=== PATIENT | female | born 1950 | race Caucasian/White ===

== ENCOUNTER 2020-03-09 13:29 | Observation (INO) | payer OTHER ==
--- OUTSIDE RECORDS SUMMARY | 2020-03-09 13:31 | XMS REPORT | Clinical Summary ---
:1950 Author Organization [facility] Address [address] [place] [id number] Care Team Providers Name Role Phone Aníbal Skaggs MD Primary Care Provider Allergies Active Allergy Reactions Severity Noted Date Comments Adhesive Tape-Silicones 12/05/2015 unkn own Alcohol High 12/05/2015 unknown Codeine Rash, GI Intolerance Low 10/07/2010 Iodine And Iodide Containing 12/05/2015 pruritus Products Latex 01/26/2018 Povidone-Iodine Rash Low 10/07/2010 Sulfa (Sulfonamide Antibiotics) GI Intolerance 015 Medications Medication Sig Dispensed Refills Start Date End Date Status ascorbate calcium 814 Take 5,000 mg by 0 10/07/2010 Active mg/gram powder mouth. atorvastatin (LIPITOR) Take 10 mg by 0 01/24/2015 Active 10 MG tablet mouth. CHOLECALCIFEROL, VITAMIN Take by mouth. 0 10/07/2010 Active D3, ORAL LORAZepam (ATIVAN) 2 MG Take 2 mg by 0 08/02/2012 Active tablet mouth. metFORMIN XR Take 500 mg by 0 01/21/2015 A ctive (GLUCOPHAGE-XR) 500 mg mouth. 24 hr tablet thyroid, pork, (ARMOUR Take 60 mg by 0 01/24/2015 Active THYROID) 60 mg tablet mouth. VITAMIN B COMPLEX ORAL Take by mouth. 0 10/07/2010 Active Active Problems No known active problems Family History Medical History Relation Name Comments Cancer Father Cancer Mother breast Relation Name Status Comments Father Mother Social History Tobacco Use Types Packs/Day Years Used Date Never Smoker Smokeless Tobacco: Never Used Alcohol Use Drinks/Week oz/Week Comments Yes Sex Assigned at Date Recorded Not on file Job Start Date Occupation Industry Not on file Not on file Not on file Travel History Travel Start Travel End No recent travel history available. Last Filed Vital Signs Not on file Plan of Treatment Health Maintenance Due Date Last Done Comments DIABETIC RETINAL EYE EXAM 1950 DIABETIC FOOT EXAM 1960 BREAST CANCER SCREENING 2000 COLONOSCOPY SCREENING 2000 SHINGLES VACCINES (#1) 2000 65+ PNEUMOCOCCAL VACCINE (1 of 2 - PCV13) 2015 INFLUENZA VACCINE 02/20/2020 Results Not on fileafter 03/09/2019 Insurance Payer Benefit Plan / Subscriber ID Effective Dates Phone Addre ss Type Group MEDICARE MEDICARE PART A xxxxxxxxxx 2015-Present SERA RANGEL Medicare AND B (Home) [place] [address] Advance Directives For more information, please contact: [phone] Type Date 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
--- OUTSIDE RECORDS SUMMARY | 2020-03-09 13:32 | XMS REPORT | Continuity of Care Document ---
:1950 Author Organization [facility] t Address [address] [place] [address] [address] [place] [address] Care Team Providers Name Role Phone MELECIO CHU Primary Care Physician Unavailable SYSTEM, NOT IN Attending Clinician Unavailable Girish CHU Attending Clinician Unavailable Jessica JO Attending Clinician Unavailable Payers Payer Name Policy Type Policy Number Effective Date Expiration Date S marilyn MEDICARE PART A [id number] 2015 AND B 00:00:00 Problems This patient has no known problems. Allergies, Adverse Reactions, Alerts Allergy Allergy Status Severity Reaction(s) Onset Inactive Treating Comm ents Source Name Type Date Date Clinician DALBAVAN DRUG Active High Sob~Rash 2019-0 MD BOZENA INGREDI 1-25 Anderso 00:00: n 00 DALBAVAN DRUG Active High Sob~Rash 2019-0 MD BOZENA INGREDI 1-25 Anderso 00:00: n 00 Latex Propensi Active [place] ty to 808 Methodi adverse 00:00: st reaction 00 s to drug ADHESIVE DRUG Active Low Rash MD TAPE-BRENDAN 6-16 Anderso ICONES 00:00: n 00 ADHESIVE DRUG Active Low Rash MD TAPE-BRENDAN 6-16 Anderso ICONES 00:00: n 00 Adhesive Propensi Active unknown [place] Tape-Brendan ty to 616 Methodi icones adverse 00:00: st reaction 00 s to drug Alcohol Propensi Active Severe unknown [place] ty to 6-16 Methodi adverse 00:00: st reaction 00 s to drug Iodine Propensi Active pruritus [place] ty to 616 Methodi Iodide adverse 00:00: st Containi reaction 00 ng s to Products drug Sulfa Propensi Active GI [place] ([place]ulfona ty to Intolerance 8-03 Met hodi mide adverse 00:00: st Antibiot reaction 00 ics) s to drug Codeine Propensi Active Rash, GI [place] ty to Intolerance - Metho di adverse 00:00: st reaction 00 s to drug Povidone Propensi Active Rash [place] -Iodine ty to 10-07 Methodi adverse 00:00: st reaction 00 s to drug Family History Family Member Diagnosis Comments Start Date Stop Date Source Natural father Cancer [facility] thodist Natural mother Cancer [facility] thodist Social History Social Habit Start Date Stop Date Quantity Comments Source Sex Assigned At [place] M ethodist Alcohol intake 2018-01-26 2018-01-26 Current drinker [place] [facility] 00:00:00 00:00:00 of alcohol (finding) Smoking Status Start Date Stop Date Source Never smoker [place] Method[facility] t Medications Ordered Filled Start Stop Current Ordering Indication Dosage Frequency Signature Comments Components Source Medication Medication Date Date Medication? Clinician (SIG) Name Name atorvastati Yes 10mg Take 10 mg [place] n (LIPITOR) 806 by mouth. Met hodi 10 MG 00:00: st tablet 00 thyroid, Yes 60mg Take 60 mg Kelly ston pork, 806 by mouth. Methodi (ARMOUR 00:00: st THYROID) 60 00 mg tablet metFORMIN Yes 500mg Take 500 [address]on XR 8-03 mg by [facility] (GLUCOPHAGE 00:00: mouth. st -XR) 500 mg 00 24 hr tablet LORAZepam Yes 2mg Take 2 mg Kelly ston (ATIVAN) 2 2-12 by mouth. Meth viktor MG tablet 00:00: st 00 ascorbate Yes 5000mg Take 5,000 [place] calcium 814 4-19 mg by [facility]i mg/gram 00:00: mouth. st powder 00 CHOLECALCIF Yes Take by Kelly ston ANDRIA, 10-07 mouth. Methodi VITAMIN D3, 00:00: st ORAL 00 VITAMIN B Yes Take by [place] on COMPLEX 10-07 mouth. Methodi ORAL 00:00: st 00 Vital Signs Vital Name Observation Time Observation Value Comments Source WEIGHT 2019-12-27 00:00:00 90 kg Procedures This patient has no known procedures. Plan of Care Planned Activity Planned Date Details Comments Source Future Scheduled 2020-02-20 INFLUENZA VACCINE [place] [facility] Test 00:00:00 [code = INFLUENZA VACCINE] Future Scheduled 2015 65+ PNEUMOCOCCAL [facility] [facility] Test 00:00:00 VACCINE (1 of 2 - PCV13) [code = 65+ PNEUMOCOCCAL VACCINE (1 of 2 - PCV13)] Future Scheduled 2000 BREAST CANCER [place] [facility] Test 00:00:00 SCREENING [code = BREAST CANCER SCREENING] Future Scheduled 2000 COLONOSCOPY SCREENING [place] [facility] Test 00:00:00 [code = COLONOSCOPY SCREENING] Future Scheduled 2000 SHINGLES VACCINES (#1) [place] [facility] Test 00:00:00 [code = SHINGLES VACCINES (#1)] Future Scheduled 1960 DIABETIC FOOT EXAM [place] [facility] Test 00:00:00 [code = DIABETIC FOOT EXAM] Future Scheduled 1950 DIABETIC RETINAL EYE [facility] Test 00:00:00 EXAM [code = DIABETIC RETINAL EYE EXAM] Encounters Start End Encounter Admission Attending Care Care Encounter Source Date/Time Date/Time Type Type Clinicians Facility Department ID 2019-12-12 Outpatient SYSTEMDEN MDA [id number] 14:36:16 ZEN bangura 2020-02-21 2020-02-21 Outpatient SARANYA CHU MDA MDA [id number] 00:00:00 00:00:00 MELECIO bangura 2020-01-24 2020-01-24 Outpatient SARANYA JO MDA MDA [id number] 00:00:00 00:00:00 MAYUR bangura 2019-12-27 2019-12-27 Outpatient SARANYA CHU MDA MDA [id number] 06:51:15 09:50:57 MELECIO bangura 2019-12-27 2019-12-27 Outpatient SARANYA CHU MDA MDA [id number] 06:21:08 06:21:08 MELECIO bangura 2019-12-11 2019-12-11 Outpatient SARANYA CHU MDA MDA [id number] 09:32:44 11:03:05 MELECIO bangura Results This patient has no known results.
--- NOTE | 2020-03-09 14:38 | RAD REPORT ---
EXAM DESCRIPTION: Rosalinda Single View03/09/2020 2:19 pm CLINICAL HISTORY: Chest pain COMPARISON: 2016 FINDINGS: The lungs appear clear of acute infiltrate. The heart is normal size IMPRESSION: No acute abnormalities displayed
[2020-03-09] MEDS ORDERED: ASPIRIN 81 MG CHEWABLE TABLET ONE (14:45)
[2020-03-09 15:32] LABS: Absolute Lymphocytes (CBC) 3.1 K/uL (0.7-4.9); Basophils % 1.2 % (0-1.3); Hematocrit 30.8 % (36.0-45.0); Lymphocytes % 55.8 % (15.3-44.8); MPV 6.9 fL (7.6-11.3); RBC Red Blood Cell Count 2.84 M/uL (3.86-4.86)
[2020-03-09 15:50] LABS: ALT/SGPT 43 U/L (12-78); AST/SGOT 31 U/L (15-37); Albumin 3.6 g/dL (3.4-5.0); Alkaline Phosphatase 43 U/L (45-117); BUN Blood Urea Nitrogen 14 mg/dL (7-18); Bicarbonate 28 mmol/L (21-32); Bilirubin Direct 0.2 mg/dL (0-0.2); Bilirubin Total 0.7 mg/dL (0.2-1.0); Glucose Level 128 mg/dL (74-106); Lipase 104 U/L (73-393); Magnesium 1.9 mg/dL (1.8-2.4); NT PRO-BNP 54 pg/mL (<125); Potassium 3.9 mmol/L (3.5-5.1); Protein, Total 7.2 g/dL (6.4-8.2); Sodium Level 139 mmol/L (136-145); Troponin (Emerg Dept Use Only) < 0.02 ng/mL (0.0-0.045)
[2020-03-09 16:01] LABS: Urine Blood NEGATIVE (NEG); Urine Glucose NEGATIVE (NEG); Urine Protein NEGATIVE (NEG); Urine Specific Gravity 1.005 (1.005-1.030)
--- NOTE | 2020-03-09 16:02 | EDPHYS ---
Physician Documentation [facility] Name: Hortencia Martinez Age: 69 yrs Sex: Female : 1950 Arrival Date: 03/09/2020 Time: 13:30 Bed 13 Private MD: MALA Physician Bharat Mccartney HPI: 03/09 15:38 This 69 yrs old Female presents to ER via Ambulatory with complaints of Chest shannan Pain. 15:38 The patient or guardian reports chest pain that is located primarily in the anterior shannan chest wall, bilaterally. Onset: just prior to arrival. The pain does not radiate. Associated signs and symptoms: The patient has no apparent associated signs or symptoms. The chest pain is described as sharp. Modifying factors: The symptoms are alleviated by nothing. the symptoms are aggravated by nothing. Severity of pain: At its worst the pain was mild in the emergency department the pain is unchanged. The patient has not experienced similar symptoms in the past. Historical: - Allergies: 13:56 Codeine (Vomiting); iw - Home Meds: 13:56 anastrozole 1 mg oral tab 1 tab once daily [Active]; denosumab subcutaneous iw subcutaneous [Active]; Ibrance 125 mg oral cap 1 cap once daily [Active]; Eliquis 5 mg oral tab 1 tab 2 times per day [Active]; metformin 500 mg Oral Tb24 2 times per day [Active]; - PMHx: 13:56 BREAST CA; Diabetes - NIDDM; lymphedema; iw - PSHx: 13:56 Mastectomy - LEFT; Cholecystectomy; iw - Immunization history:: Adult Immunizations not up to date. - Social history:: Smoking status: Patient denies any tobacco usage or history of. - Family history:: not pertinent. ROS: 15:38 Constitutional: Negative for fever, chills, and weight loss, Eyes: Negative for injury, shannan pain, redness, and discharge, ENT: Negative for injury, pain, and discharge, Neck: Negative for injury, pain, and swelling, Respiratory: Negative for shortness of breath, cough, wheezing, and pleuritic chest pain, Abdomen/GI: Negative for abdominal pain, nausea, vomiting, diarrhea, and constipation, Back: Negative for injury and pain, : Negative for injury, bleeding, discharge, and swelling, MS/Extremity: Negative for injury and deformity, Skin: Negative for injury, rash, and discoloration, Neuro: Negative for headache, weakness, numbness, tingling, and seizure, Psych: Negative for depression, anxiety, suicide ideation, homicidal ideation, and hallucinations, Allergy/Immunology: Negative for hives, rash, and allergies, Endocrine: Negative for neck swelling, polydipsia, polyuria, polyphagia, and marked weight changes. 15:38 Cardiovascular: Positive for chest pain. Exam: 15:38 Constitutional: This is a well developed, well nourished patient who is awake, alert, shannan and in no acute distress. Head/Face: Normocephalic, atraumatic. Eyes: Pupils equal round and reactive to light, extra-ocular motions intact. Lids and lashes normal. Conjunctiva and sclera are non-icteric and not injected. Cornea within normal limits. Periorbital areas with no swelling, redness, or edema. ENT: Nares patent. No nasal discharge, no septal abnormalities noted. Tympanic membranes are normal and external auditory canals are clear. Oropharynx with no redness, swelling, or masses, exudates, or evidence of obstruction, uvula midline. Mucous membranes moist. Neck: Trachea midline, no thyromegaly or masses palpated, and no cervical lymphadenopathy. Supple, full range of motion without nuchal rigidity, or vertebral point tenderness. No Meningismus. Chest/axilla: Normal chest wall appearance and motion. Nontender with no deformity. No lesions are appreciated. Cardiovascular: Regular rate and rhythm with a normal S1 and S2. No gallops, murmurs, or rubs. Normal PMI, no JVD. No pulse deficits. Respiratory: Lungs have equal breath sounds bilaterally, clear to auscultation and percussion. No rales, rhonchi or wheezes noted. No increased work of breathing, no retractions or nasal flaring. Abdomen/GI: Soft, non-tender, with normal bowel sounds. No distension or tympany. No guarding or rebound. No evidence of tenderness throughout. Back: No spinal tenderness. No costovertebral tenderness. Full range of motion. Female : Normal external genitalia. Skin: Warm, dry with normal turgor. Normal color with no rashes, no lesions, and no evidence of cellulitis. MS/ Extremity: Pulses equal, no cyanosis. Neurovascular intact. Full, normal range of motion. Neuro: Awake and alert, GCS 15, oriented to person, place, time, and situation. Cranial nerves II-XII grossly intact. Motor strength 5/5 in all extremities. Sensory grossly intact. Cerebellar exam normal. Normal gait. Psych: Awake, alert, with orientation to person, place and time. Behavior, mood, and affect are within normal limits. 15:38 Musculoskeletal/extremity: Extremities: all appear grossly normal, with no appreciated pain with palpation, ROM: no acute changes, intact in all extremities, Circulation is intact in all extremities. DVT Exam: No signs of deep vein thrombosis. no pain, no swelling, no tenderness, negative Homans' sign noted on exam, no appreciated bluish discoloration, no erythema, no increased warmth, LEFT UPPER EXTREMITY,LYMPHEDEMA, NO CELLULITIS. Vital Signs: 13:52 BP 121 / 57; Pulse 69; Resp 16; Temp 98.0(TE); Pulse Ox 100% on R/A; Weight 81.65 kg; iw Pain 7/10; 15:35 Pulse 62; Resp 14 S; Pulse Ox 100% on R/A; jd3 16:49 BP 123 / 64; Pulse 63; Resp 17 S; Pulse Ox 99% on R/A; jd3 18:02 BP 134 / 65; Pulse 62; Resp 14 S; Pulse Ox 99% on R/A; jd3 MDM: 13:58 Patient medically screened. shannan 15:47 Differential diagnosis: abnormal EKG, acute pericarditis. Data reviewed: vital signs, shannan nurses notes, lab test result(s), EKG, radiologic studies, plain films. 15:49 HEART Score: History: Slightly Suspicious (0), ECG: Normal (0), Age: > or = 65 years shannan (2), Risk Factors: 1 or 2 risk factors (1), Troponin: < or = 1 x Normal Limit (0). The patient was given aspirin in the Emergency Department. The patient's deep vein thrombosis risk score was calculated as follows: Total Score: 0. This patient was found to be at low risk for a deep vein thrombosis by using the Well's assessment criteria. The patient's pulmonary embolism risk score was calculated as follows: Total Score: 0-2 points. This patient was found to be at low risk for a pulmonary embolism by using the Well's assessment criteria. NISHI Risk Score: not applicable. Data interpreted: awake overnight monitor: rate is 62 beats/min, rhythm is regular, Pulse oximetry: on room air is 100 %. Test interpretation: by ED physician or midlevel provider: ECG, plain radiologic studies. 03/09 13:58 Order name: Basic Metabolic Panel; Complete Time: 15:53 [facility] 03/09 13:58 Order name: CBC with Diff [facility] 03/09 13:58 Order name: LFT's; Complete Time: 15:53 [facility] 03/09 13:58 Order name: Magnesium; Complete Time: 15:53 [facility] 03/09 13:58 Order name: NT PRO-BNP; Complete Time: 15:53 [facility] 03/09 13:58 Order name: Troponin (emerg Dept Use Only); Complete Time: 15:53 [facility] 03/09 13:58 Order name: XRAY Chest (1 view); Complete Time: 15:37 [facility] 03/09 13:58 Order name: EKG; Complete Time: 13:59 [facility] 03/09 13:58 Order name: Cardiac monitoring; Complete Time: 14:13 [facility] 03/09 15:39 Order name: CBC Smear Scan [facility] 03/09 15:46 Order name: Lipase; Complete Time: 15:53 [facility] 03/09 15:57 Order name: Urine Dipstick--Ancillary (enter results) 03/09 13:58 Order name: EKG - Nurse/Tech; Complete Time: 14:32 [facility] 03/09 13:58 Order name: IV Saline Lock; Complete Time: 16:07 [facility] 03/09 13:58 Order name: Labs collected and sent; Complete Time: 15:39 [facility] 03/09 13:58 Order name: O2 Per Protocol; Complete Time: 14:13 [facility] 03/09 13:58 Order name: O2 Sat Monitoring; Complete Time: 14:13 [facility] Administered Medications: 14:47 Drug: Aspirin 162 mg Route: PO; jd3 15:45 Follow up: Response: No adverse reaction jd3 Disposition: 03/09/20 16:00 Hospitalization ordered by Erik Gordon for Observation. Preliminary diagnosis are Chest pain, unspecified, Type 2 diabetes mellitus. - Bed requested for Telemetry/MedSurg (observation). - Status is Observation. iw - Condition is Stable. - Problem is new. - Symptoms have improved. Signatures: Dispatcher [employer] EDMN Bharat Mccartney MD MD cha Williams, Irene, RN RN iw Santi Hannon, RN RN joKfi Castaneda RN RN ja1 Corrections: (The following items were deleted from the chart) 15:46 15:39 LIPASE+C.LAB.BRZ ordered. [facility] 16:55 16:00 Hospitalization Ordered by Erik Gordon DO for Observation. Preliminary ja1 diagnosis is Chest pain, unspecified; Type 2 diabetes mellitus. Bed requested for Telemetry/MedSurg (observation). Status is Observation. Condition is Stable. Problem is new. Symptoms have improved. [facility] 18:50 16:55 03/09/2020 16:00 Hospitalization Ordered by Erik Gordon DO for Observation. iw Preliminary diagnosis is Chest pain, unspecified; Type 2 diabetes mellitus. Bed requested for Telemetry/MedSurg (observation). Status is Observation. Condition is Stable. Problem is new. Symptoms have improved. jaGifty
--- NOTE | 2020-03-09 16:02 | ER ---
Nurse's Notes [facility] Name: Hortencia Martinez Age: 69 yrs Sex: Female : 1950 Arrival Date: 03/09/2020 Time: 13:30 Bed 13 Private MD: Diagnosis: Chest pain, unspecified;Type 2 diabetes mellitus Presentation: 03/09 13:52 Chief complaint: Patient states: midsternal chest pain since 3 this morning, non iw radiating, intermittent and sharp, denies cough, has some SOB when the pain hits. Coronavirus screen: At this time, the client does not indicate any symptoms associated with coronavirus-19. Ebola Screen: Patient negative for fever greater than or equal to 101.5 degrees Fahrenheit, and additional compatible Ebola Virus Disease symptoms Patient denies exposure to infectious person. Patient denies travel to an Ebola-affected area in the 21 days before illness onset. No symptoms or risks identified at this time. Initial Sepsis Screen: Does the patient meet any 2 criteria? No. Patient's initial sepsis screen is negative. Does the patient have a suspected source of infection? No. Patient's initial sepsis screen is negative. Risk Assessment: Do you want to hurt yourself or someone else? Patient reports no desire to harm self or others. Onset of symptoms was March 09, 2020. 13:52 Method Of Arrival: Ambulatory iw 13:52 Acuity: JESSICA 3 iw Historical: - Allergies: 13:56 Codeine (Vomiting); iw - Home Meds: 13:56 anastrozole 1 mg oral tab 1 tab once daily [Active]; denosumab subcutaneous iw subcutaneous [Active]; Ibrance 125 mg oral cap 1 cap once daily [Active]; Eliquis 5 mg oral tab 1 tab 2 times per day [Active]; metformin 500 mg Oral Tb24 2 times per day [Active]; - PMHx: 13:56 BREAST CA; Diabetes - NIDDM; lymphedema; iw - PSHx: 13:56 Mastectomy - LEFT; Cholecystectomy; iw - Immunization history:: Adult Immunizations not up to date. - Social history:: Smoking status: Patient denies any tobacco usage or history of. - Family history:: not pertinent. Screenin:36 Abuse screen: Denies threats or abuse. Nutritional screening: No deficits noted. jd3 Tuberculosis screening: No symptoms or risk factors identified. Fall Risk Ambulatory Aid- None/Bed Rest/Nurse Assist (0 pts). Gait- Normal/Bed Rest/Wheelchair (0 pts) Mental Status- Oriented to own ability (0 pts). Total Castanon Fall Scale indicates No Risk (0-24 pts). Assessment: 14:12 General: Appears in no apparent distress. uncomfortable, Behavior is calm, cooperative, jd3 appropriate for age. Pain: Complains of pain in chest Pain does not radiate. Quality of pain is described as squeezing, Pain began gradually, Is intermittent. Neuro: Level of Consciousness is awake, alert, obeys commands, Oriented to person, place, time, situation. Cardiovascular: Heart tones S1 S2 present Capillary refill < 3 seconds Rhythm is regular. Respiratory: Airway is patent Respiratory effort is even, unlabored, Respiratory pattern is regular, symmetrical, Breath sounds are clear bilaterally. Denies cough, shortness of breath. GI: No signs and/or symptoms were reported involving the gastrointestinal system. : No signs and/or symptoms were reported regarding the genitourinary system. EENT: No signs and/or symptoms were reported regarding the EENT system. Derm: Skin is intact, Skin is dry, Skin is normal, Skin temperature is warm. Musculoskeletal: Circulation, motion, and sensation intact. Range of motion: intact in all extremities, Swelling present in left arm. 15:30 Reassessment: Patient appears in no apparent distress at this time. No changes from jd3 previously documented assessment. Patient and/or family updated on plan of care and expected duration. Pain level reassessed. Patient is alert, oriented x 3, equal unlabored respirations, skin warm/dry/pink. 16:48 Reassessment: Patient appears in no apparent distress at this time. Patient and/or jd3 family updated on plan of care and expected duration. Pain level reassessed. Patient is alert, oriented x 3, equal unlabored respirations, skin warm/dry/pink. hospitalist at bedside discussing plan of care. awaiting admission. 17:49 Reassessment: report attempted to fourth floor, no answer, charge nurse notified. jd3 18:02 Reassessment: Patient appears in no apparent distress at this time. Patient and/or jd3 family updated on plan of care and expected duration. Pain level reassessed. Patient is alert, oriented x 3, equal unlabored respirations, skin warm/dry/pink. awaiting admission. 18:22 Reassessment: report given to Chastity AKHTAR. jd3 Vital Signs: 13:52 BP 121 / 57; Pulse 69; Resp 16; Temp 98.0(TE); Pulse Ox 100% on R/A; Weight 81.65 kg; iw Pain 7/10; 15:35 Pulse 62; Resp 14 S; Pulse Ox 100% on R/A; jd3 16:49 BP 123 / 64; Pulse 63; Resp 17 S; Pulse Ox 99% on R/A; jd3 18:02 BP 134 / 65; Pulse 62; Resp 14 S; Pulse Ox 99% on R/A; jd3 ED Course: 13:30 Patient arrived in ED. bg2 13:55 Triage completed. iw 13:56 Arm band placed on. iw 13:57 Bharat Mccartney MD is Attending Physician. shannan 14:12 Santi Hannon RN is Primary Nurse. jd3 14:19 XRAY Chest (1 view) In Process Unspecified. EDMS 14:45 Missed attempt(s): 24 gauge in right hand. Bleeding controlled, band aid applied, jd3 catheter tip intact. 15:00 Patient maintains SpO2 saturation greater than 95% on room air. jd3 15:36 Patient has correct armband on for positive identification. Bed in low position. Call jd3 light in reach. Side rails up X2. Adult w/ patient. property assessment monitor on. Pulse ox on. NIBP on. 16:00 Erik Gordon DO is Hospitalizing Provider. shannan 16:07 Inserted saline lock: 24 gauge in right hand, using aseptic technique. iw 18:22 No provider procedures requiring assistance completed. Patient admitted, IV remains in jd3 place. Administered Medications: 14:47 Drug: Aspirin 162 mg Route: PO; jd3 15:45 Follow up: Response: No adverse reaction jd3 Outcome: 16:00 Decision to Hospitalize by Provider. shannan 18:22 Condition: stable jd3 18:50 Patient left the ED. iw 18:50 Admitted to Med/surg accompanied by tech, via wheelchair, room 404, with chart, Report jd3 called to Chastity AKHTAR 18:50 Instructed on the need for admit, Demonstrated understanding of instructions. Signatures: Dispatcher [employer] EDMS Bharat Mccartney MD MD cha Williams, Irene, GIOVANA RN iw Irene Longoria 2 Santi Hannon RN RN jd3 Corrections: (The following items were deleted from the chart) 15:37 15:00 Missed attempt(s): 24 gauge in right hand. Bleeding controlled, band aid applied, jd3 catheter tip intact. jd3 15:49 13:52 BP 121 / 57; Pulse 69bpm; Resp 16bpm; Pulse Ox 100% RA; 81.65 kg; Pain 7/10; iw iw 18:21 18:02 Pulse 62bpm; Resp 14bpm; Spontaneous; Pulse Ox 99% RA; jd3 jd3
--- NOTE | 2020-03-09 16:57 | P.HP ---
Certification for Inpatient Patient admitted to: Observation With expected LOS: <2 Midnights Patient will require the following post-hospital care: None Practitioner: I am a practitioner with admitting privileges, knowledge of patient current condition, hospital course, and medical plan of care. Services: Services provided to patient in accordance with Admission requirements found in Title 42 Section 412.3 of the Code of Federal Regulations Patient History Date of Service: 03/09/20 Primary Care Provider: Dr. Lis Mccartney Reason for admission: Chest pain History of Present Illness: 69-year-old female with history of breast cancer, left breast mastectomy, bone metastasis, and diabetes. Patient reported chest pain to the center of her chest. This started about 2 days ago. It has been occurring more often. It comes and goes. The pain is sharp. There is no radiation in pain. She denies any shortness of breath, nausea or vomiting. She took some Tylenol this morning. Due to increased pain the patient came to the ER for further evaluation. In the ER patient was evaluated. Vital signs stable. EKG shows no significant EKG changes. Chest x-ray unremarkable. CBC unremarkable. Sodium 139, potassium 2.9, creatinine 0.8 with a GFR 63. Glucose 128. Troponin unremarkable. Urinalysis unremarkable. Patient admitted for further evaluation and observation. When I saw the patient ER, she appeared stable. at bedside. No significant past cardiac history. Through weeks ago she had left upper extremity swelling and cellulitis. She is currently on antibiotic therapy at this time. She also takes Eliquis 5 mg 1 pill twice daily. Patient with history of breast cancer and bone metastasis. She has metastasis to the ribs, upper extremity and lower extremity. She is to follow up with [facility] here soon to further address and monitor bone metastasis. Allergies adhesive tape Allergy (Verified 04/30/17 03:18) Itching codeine Allergy (Verified 04/30/17 03:18) Rash Home Medications: NK [No Home Meds] 04/30/17 - Past Medical/Surgical History Diabetic: Yes -: Breast cancer with bone metastasis -: DM type 2 -: Lymphedema -: On chronic anti coagulation therapy -: L. mastectomy -: cholecystectomy -: x2 Psychosocial/ Personal History: Patient is - Family History Family History: Reviewed- Non-Contributory - Social History Smoking Status: Never smoker Alcohol use: Yes CD- Drugs: No Caffeine use: No Place of Residence: Home Review of Systems General: As per HPI Eyes: Unremarkable ENT: Unremarkable Respiratory: Unremarkable Cardiovascular: Chest Pain, As per HPI Gastrointestinal: Unremarkable Genitourinary: Unremarkable Musculoskeletal: As per HPI Integumentary: Unremarkable Neurological: Unremarkable Lymphatics: Unremarkable Physical Examination - Physical Exam General: Alert, In no apparent distress, Oriented x3, Cooperative HEENT: Atraumatic, Normocephalic, Mucous membr. moist/pink Neck: Supple Respiratory: Clear to auscultation bilaterally, Normal air movement Cardiovascular: Normal pulses, Regular rate/rhythm, Other (Patient with point tenderness to the sternal region.) Gastrointestinal: Normal bowel sounds, Soft and benign, Non-distended, No tenderness, No masses, No rebound, No guarding Musculoskeletal: No tenderness, No warmth Integumentary: Other (Chronic left upper extremity lymphedema. Patient with history of left breast mastectomy) Neurological: Normal speech, Normal strength at 5/5 x4 extr, Normal tone, Normal affect Lymphatics: Other (Lymphedema to the left upper extremity) - Studies Laboratory Data (last 24 hrs) 03/09/20 15:38: Lipase Cancelled 03/09/20 15:11: WBC 5.5, Hgb 10.8 L, Hct 30.8 L, Plt Count 244 03/09/20 15:11: Sodium 139, Potassium 3.9, BUN 14, Creatinine 0.89, Glucose 128 H, Magnesium 1.9, Total Bilirubin 0.7, AST 31, ALT 43, Alkaline Phosphatase 43 L, Lipase 104 Assessment and Plan - Plan Impression: Chest pain, atypical suspect related to bone metastasis Left breast cancer with prior mastectomy with bone metastasis Diabetes mellitus type 2 [id number] History of left upper extremity lymphedema with recent cellulitis On chronic anti coagulation therapy Plan: Chest pain, atypical suspect related to bone metastasis: Patient will be admitted for further evaluation observation. Will monitor telemetry and cardiac enzymes. Doubt cardiac. Will monitor closely. Will provide medication for pain including tramadol and/or hydrocodone. Will also start Protonix. Will continue to monitor closely. If cardiac enzymes unremarkable within the next 24 hr will discharge home. Patient has follow up with [facility] later this week. Left breast cancer with prior mastectomy with bone metastasis: Will provide medication for pain. She has been using Tylenol only. Will provide tramadol and/or [place]. Patient has follow up with [facility] later this week to re- evaluate bone metastasis. Diabetes mellitus type 2 [id number]: Will check A1c. Will monitor Accu-Cheks. Will provide sliding scale. History of left upper extremity lymphedema with recent cellulitis: Will need to continue home medication. On chronic anti coagulation therapy: Will need to continue with home medication-Eliquis. Discharge Plan: Home Plan to discharge in: 24 Hours - Advance Directives Does patient have a Living Will: No Does patient have a Durable POA for Healthcare: No - Code Status/Comfort Care Code Status Assessed: Yes (Patient is full code) Time Spent Managing Pts Care (In Minutes): 55
[2020-03-09 18:59] LABS: Platelet Estimate ADEQ; White Blood Cell Scan OK (OK)
[2020-03-09 19:00] LABS: Blood Morphology Comment NOTED (NOT SEEN); Macrocytosis 1+
[2020-03-09] MEDS ORDERED: ONDANSETRON 4 MG/2 ML VIAL IV PRN (19:37)
[2020-03-09] MEDS ORDERED: ACETAMINOPHEN 500 MG TAB PO PRN (19:37)
[2020-03-09] MEDS ORDERED: TRAMADOL HCL 50 MG TAB PO PRN (19:37)
[2020-03-09] MEDS ORDERED: HYDROCODONE/APAP 5/325 MG TAB PO PRN (19:37)
[2020-03-09] MEDS: INSULIN -REGULAR HUMAN 50 UNIT/0.5 ML ML SQ SCH (21:00)
[2020-03-09 21:41] LABS: CKMB Creatine Kinase MB < 1.0 ng/mL (0.3-3.6); Creatine Phosphokinase 68 U/L (26-192); Troponin I < 0.02 ng/mL (0.0-0.045)
[2020-03-09 22:09] VITALS: BMI 49.3
[2020-03-09] MEDS: APIXABAN 5 MG TABLET PO SCH (22:11)
[2020-03-10] MEDS ORDERED: PANTOPRAZOLE 40MG TABLET PO SCH (06:30)
[2020-03-10 06:52] LABS: BUN Blood Urea Nitrogen 11 mg/dL (7-18); Bicarbonate 28 mmol/L (21-32); CKMB Creatine Kinase MB < 1.0 ng/mL (0.3-3.6); Creatine Phosphokinase 61 U/L (26-192); Glucose Level 167 mg/dL (74-106); HDL Cholesterol 66 mg/dL (40-60); LDL Cholesterol, Calculated 125 (<130); Potassium 3.9 mmol/L (3.5-5.1); Sodium Level 140 mmol/L (136-145); Troponin I < 0.02 ng/mL (0.0-0.045)
[2020-03-10] MEDS: INSULIN -REGULAR HUMAN 50 UNIT/0.5 ML ML SQ SCH (07:30)
[2020-03-10] MEDS ORDERED: PENICILLIN V K 250 MG TABLET PO SCH (07:30)
--- NOTE | 2020-03-10 07:58 | P.DS ---
Admission Date: 03/09/20 Discharge Date: 03/10/20 Primary Care Provider: Dr. Sewell-MD Mccartney Disposition: ROUTINE DISCHARGE Discharge Condition: GOOD Reason for Admission: Chest pain Consultations: none Procedures: CXR: FINDINGS: The lungs appear clear of acute infiltrate. The heart is normal size IMPRESSION: No acute abnormalities displayed Medical Problem List: Chest pain, atypical suspect related to bone metastasis Left breast cancer with prior mastectomy with bone metastasis Diabetes mellitus type 2 [id number] History of left upper extremity lymphedema with recent cellulitis On chronic anti coagulation therapy Subclinical hypothyroidism Obesity, BMI 49.3 Brief History of Present Illness: 69-year-old female with history of breast cancer, left breast mastectomy, bone metastasis, and diabetes. Patient reported chest pain to the center of her chest. This started about 2 days ago. It has been occurring more often. It comes and goes. The pain is sharp. There is no radiation in pain. She denies any shortness of breath, nausea or vomiting. She took some Tylenol this morning. Due to increased pain the patient came to the ER for further evaluation. In the ER patient was evaluated. Vital signs stable. EKG shows no significant EKG changes. Chest x-ray unremarkable. CBC unremarkable. Sodium 139, potassium 2.9, creatinine 0.8 with a GFR 63. Glucose 128. Troponin unremarkable. Urinalysis unremarkable. Patient admitted for further evaluation and observation. When I saw the patient ER, she appeared stable. at bedside. No significant past cardiac history. Through weeks ago she had left upper extremity swelling and cellulitis. She is currently on antibiotic therapy at this time. She also takes Eliquis 5 mg 1 pill twice daily. Patient with history of breast cancer and bone metastasis. She has metastasis to the ribs, upper extremity and lower extremity. She is to follow up with [facility] here soon to further address and monitor bone metastasis. Hospital Course: Patient presented with chest pain. Initial EKG unremarkable. Initial cardiac enzymes unremarkable. Patient was admitted for further evaluation. Patient with history of left breast cancer with prior mastectomy and bone metastasis. Cardiac enzymes have remained unremarkable. No significant EKG changes noted. Pain is point tender. Chest pain very atypical likely related to bone metastasis. No need for further cardiac workup at this time. Pain improved. Patient will be discharged home. At discharge she will be provided tramadol 50 mg 1 pill 3 times a day as needed for pain. A limited supply will be provided. Patient has follow up at [facility] later this week to further address and evaluate her bone metastasis. Recommend no significant activity. Recommend no use of nonsteroidal anti-inflammatories due to her history of on chronic anti coagulation therapy. Patient may also take Tylenol as needed for pain. Patient with left breast cancer with prior mastectomy with noted below metastasis. Continue with above recommendation. Patient may continue with her current medications of Arimidex 1 mg daily and Ibance 125 mg 1 pill daily. Patient has follow up with [facility] later this week to re-evaluate her bone metastasis. Patient with diabetes mellitus type 2 non-insulin dependent. This has remained stable. At discharge she will continue with her current medication-metformin 500 mg 1 pill twice daily. Recommend to monitor blood sugar at least twice daily. Recommend to maintain blood sugar less than 140 fasting and less than 200 after meals. If blood sugar remains above 200, recommend to follow up or call PCP for further instructions. Adjustment in medication may be required, if taking medication. This can be done with the help of PCP. Recommend follow up with PCP to further monitor and address Diabetes for better control. Patient with history of left upper extremity lymphedema with recent cellulitis. Patient also takes chronic anti coagulation therapy. This was treated [facility]. At discharge she will continue with her antibiotic therapy-pen VK 250 mg 1 pill twice daily and Eliquis 5 mg 1 pill twice daily. Patient has follow up with [facility] this week. Patient noted to have abnormal tsh at 9.8 but free T4 was 0.76. Subclinical hypothyroidism versus hypothyroidism suspected. Recommend to recheck lab-tsh and free T4 in 2-4 weeks. If still significantly abnormal and symptomatic as an outpatient, patient may have underlying hypothyroidism. This this would require treatment. This can be further addressed by her PCP. Patient also takes supplements including vitamin-C and calcium. She may continue with his medication. Vital Signs/Physical Exam: Temp Pulse Resp BP Pulse Ox 97.8 F 60 16 108/53 L 98 03/10/20 04:00 03/10/20 04:00 03/10/20 04:00 03/10/20 04:00 03/10/20 04:00 General: Alert, In no apparent distress, Oriented x3, Cooperative HEENT: Atraumatic Neck: Supple Respiratory: Clear to auscultation bilaterally, Normal air movement Cardiovascular: Normal pulses, Regular rate/rhythm, Other (Point tenderness with palpation to the sternal region) Gastrointestinal: Normal bowel sounds, No tenderness, No masses, No rebound, No guarding Musculoskeletal: No erythema, No tenderness, No warmth Integumentary: No erythema, No warmth, No cyanosis, Tenderness/swelling (As mentioned above), Other (Chronic lymphedema to the left upper extremity no erythema noted.) Neurological: Normal speech, Normal strength at 5/5 x4 extr, Normal tone, Normal affect Laboratory Data at Discharge: WBC 5.5 K/uL (4.3-10.9) 03/09/20 15:11 Hgb 10.8 g/dL (12.0-15.0) L 03/09/20 15:11 Hct 30.8 % (36.0-45.0) L 03/09/20 15:11 Plt Count 244 K/uL (152-406) 03/09/20 15:11 Sodium 140 mmol/L (136-145) 03/10/20 05:56 Potassium 3.9 mmol/L (3.5-5.1) 03/10/20 05:56 BUN 11 mg/dL (7-18) 03/10/20 05:56 Creatinine 0.91 mg/dL (0.55-1.3) 03/10/20 05:56 Glucose 167 mg/dL (74-106) H 03/10/20 05:56 Magnesium 2.0 mg/dL (1.8-2.4) 03/10/20 05:56 Total Bilirubin 0.7 mg/dL (0.2-1.0) 03/09/20 15:11 AST 31 U/L (15-37) 03/09/20 15:11 ALT 43 U/L (12-78) 03/09/20 15:11 Alkaline Phosphatase 43 U/L (45-117) L 03/09/20 15:11 Troponin I < 0.02 ng/mL (0.0-0.045) 03/10/20 05:56 Triglycerides 137 mg/dL (<150) 03/10/20 05:56 Cholesterol 218 mg/dL (<200) H 03/10/20 05:56 HDL Cholesterol 66 mg/dL (40-60) H 03/10/20 05:56 Cholesterol/HDL Ratio 3.30 03/10/20 05:56 Lipase Cancelled 03/09/20 15:38 Home Medications: Anastrozole [Arimidex*] 1 mg PO DAILY 03/09/20 Apixaban [Eliquis *] 5 mg PO BID 03/09/20 Ascorbic Acid [Vitamin C*] 1,000 mg PO DAILY 03/09/20 Calcium Carbonate [Calcium] 600 mg PO DAILY 03/09/20 Metformin HCl [Glucophage*] 500 mg PO BID 03/09/20 Palbociclib [Ibrance] 125 mg PO DAILY 03/09/20 Penicillin Vk [Veetids (Pen-Vee K)*] 250 mg PO BID 03/09/20 traMADol HCL [Ultram*] 50 mg PO TIDP PRN #15 tab 03/10/20 New Medications: traMADol HCL [Ultram*] 50 mg PO TIDP PRN #15 tab PRN Reason: Pain Scale 2-4 (Mild) Patient Discharge Instructions: 1. Recommend follow up with PCP in 1 week to follow up this hospitalization. 2. Patient presented with chest pain. Initial EKG unremarkable. Initial cardiac enzymes unremarkable. Patient was admitted for further evaluation. Patient with history of left breast cancer with prior mastectomy and bone metastasis. Cardiac enzymes have remained unremarkable. No significant EKG changes noted. Pain is point tender. Chest pain very atypical likely related to bone metastasis. No need for further cardiac workup at this time. Pain improved. Patient will be discharged home. At discharge she will be provided tramadol 50 mg 1 pill 3 times a day as needed for pain. A limited supply will be provided. Patient has follow up at [facility] later this week to further address and evaluate her bone metastasis. Recommend no significant activity. Recommend no use of nonsteroidal anti-inflammatories due to her history of on chronic anti coagulation therapy. Patient may also take Tylenol as needed for pain. 3. Patient with left breast cancer with prior mastectomy with noted below metastasis. Continue with above recommendation. Patient may continue with her current medications of Arimidex 1 mg daily and Ibance 125 mg 1 pill daily. Patient has follow up with [facility] later this week to re- evaluate her bone metastasis. 4. Patient with diabetes mellitus type 2 non- insulin dependent. This has remained stable. At discharge she will continue with her current medication-metformin 500 mg 1 pill twice daily. Recommend to monitor blood sugar at least twice daily. Recommend to maintain blood sugar less than 140 fasting and less than 200 after meals. If blood sugar remains above 200, recommend to follow up or call PCP for further instructions. Adjustment in medication may be required, if taking medication. This can be d one with the help of PCP. Recommend follow up with PCP to further monitor and address Diabetes for better control. 5. Patient with history of left upper extremity lymphedema with recent cellulitis. Patient also takes chronic anti coagulation therapy. This was treated [facility]. At discharge she will continue with her antibiotic therapy-pen VK 250 mg 1 pill twice daily and Eliquis 5 mg 1 pill twice daily. Patient has follow up with [facility] this week. 6. Patient noted to have abnormal tsh at 9.8 but free T4 was 0.76. Subclinical hypothyroidism versus hypothyroidism suspected. Recommend to recheck lab-tsh and free T4 in 2-4 weeks. If still significantly abnormal and symptomatic as an outpatient, patient may have underlying hypothyroidism. This this would require treatment. This can be further addressed by her PCP. 7. Patient also takes supplements including vitamin-C and calcium. She may continue with his medication. Diet: ADA Activity: Fall precautions Time spent managing pt's care (in minutes): 55
[2020-03-10] MEDS ORDERED: POTASSIUM CL SA 10 MEQ TAB PO ONE (08:00)
[2020-03-10] MEDS ORDERED: METFORMIN HCL 500 MG TAB PO SCH (08:00)
[2020-03-10 08:22] VITALS: BP 137/65; TEMP 98.1
[2020-03-10] MEDS: APIXABAN 5 MG TABLET PO SCH (08:48)
[2020-03-10] MEDS ORDERED: ANASTROZOLE 1 MG TAB PO SCH (09:00)
[2020-03-10] MEDS ORDERED: ASCORBIC ACID 500 MG TABLET PO SCH (09:00)
[2020-03-10] MEDS ORDERED: PALBOCICLIB 125 MG PO SCH (09:00)
[2020-03-10] MEDS ORDERED: CALCIUM CARBONATE 500 MG TAB PO SCH (09:00)
[2020-03-10 10:19] VITALS: O2SAT 100
== END 2020-03-10 10:12 | disposition home or self-care (01) ==
LOC: ER 13:29 → ERHOLD 16:46 → 4TH 18:25
PROVIDERS: ADMIT Family Medicine; ATTEND Family Medicine
DX: R07.89 Other chest pain (principal); C50.912 Malignant neoplasm of unspecified site of left female breast; C79.51 Secondary malignant neoplasm of bone; E11.9 Type 2 diabetes mellitus without complications; I89.0 Lymphedema, not elsewhere classified; L03.114 Cellulitis of left upper limb; E02 Subclinical iodine-deficiency hypothyroidism; E66.9 Obesity, unspecified; Z68.42 Body mass index [BMI] 45.0-49.9, adult; Z90.12 Acquired absence of left breast and nipple; Z79.01 Long term (current) use of anticoagulants; Z88.6 Allergy status to analgesic agent; Z20.828 Contact with and (suspected) exposure to other viral communicable diseases
CPT/HCPCS: 93005; 85025; 80048 ×2; 36415; 83735 ×2; 82550 ×2; 80061; 82947 ×2; 80076; 84443; 81003; 84484 ×3; 82553 ×2; 84439; 83690; 83880; 71045; 99285; U0002; G0378 ×3

== ENCOUNTER 2023-02-21 14:33 | Emergency (ER) | payer OTHER ==
--- OUTSIDE RECORDS SUMMARY | 2023-02-21 14:41 | XMS REPORT | Continuity of Care Document ---
:1950 Author Organization [facility] t Address [address] [place] [address] [address] [place] [address] Care Team Providers Name Role Phone [phone] Primary Care Physician Unavailable SYSTEM, PROVIDER NOT IN Attending Clinician Unavailable BLADIMIR MENDOZA Attending Clinician Unavailable KELLY DELGADILLO Attending Clinician Unavailable SARAI VALENTE Attending Clinician Unavailable MELECIO CHU Attending Clinician Unavailable TU TREVIZO Attending Clinician Unavailable RAÚL DIAZ Attending Clinician Unavailable ROSENDA ANGEL Attending Clinician Unavailable MAYUR JO Attending Clinician Unavailable BEA HARGROVE Admitting Clinician Unavailable Payers Payer Name Policy Type Policy Number Effective Date Expiration Date S marilyn MEDICARE PART A [id number] 2015 AND B 00:00:00 Problems This patient has no known problems. Allergies, Adverse Reactions, Alerts Allergy Allergy Status Severity Reaction(s) Onset Inactive Treating Comm ents Source Name Type Date Date Clinician DALBAVAN DRUG Active High Sob 2020-0 MD [facility]GREDI 1-25 Anderso 00:00: n 00 DALBAVAN DRUG Active High Sob 2020-0 MD [facility]GR[facility]I 1-25 Anderso 00:00: n 00 DALBAVAN DRUG Active High Sob 2020-0 MD [facility]GR[facility] 1-25 Anderso 00:00: n 00 DALBAVAN DRUG Active High Sob 2020-0 MD [facility]GR[facility] 1-25 Anderso 00:00: n 00 DALBAVAN DRUG Active High Sob 2020-0 MD [facility]GR[facility]I 1-25 Anderso 00:00: n 00 DALBAVAN DRUG Active High Sob 2020-0 MD [facility] 1-25 Anderso 00:00: n 00 DALBAVAN DRUG Active High Sob 2020-0 MD [facility] INGREDI 1-25 Anderso 00:00: n 00 DALBAVAN DRUG Active High Sob 2020-0 MD [facility]GR[facility] 1-25 Anderso 00:00: n 00 DALBAVAN DRUG Active High Sob 2020-0 MD [facility]GR[facility]I 1-25 Anderso 00:00: n 00 DALBAVAN DRUG Active High Sob 2020-0 MD [facility]GR[facility] 1-25 Anderso 00:00: n 00 DALBAVAN DRUG Active High Sob 2020-0 MD [facility]GR[facility]I 1-25 Anderso 00:00: n 00 DALBAVAN DRUG Active High Sob 2020-0 MD [facility]GR[facility] 1-25 Anderso 00:00: n 00 DALBAVAN DRUG Active High Sob 2020-0 MD [facility]ZE[facility] INGR[facility]I 1-25 Anderso 00:00: n 00 DALBAVAN DRUG Active High Sob 2020-0 MD [facility]GR[facility] 1-25 Anderso 00:00: n 00 DALBAVAN DRUG Active High Sob 2020-0 MD [facility]GR[facility] 1-25 Anderso 00:00: n 00 DALBAVAN DRUG Active High Sob 2020-0 MD [facility]GR[facility] 1-25 Anderso 00:00: n 00 DALBAVAN DRUG Active High Sob 2020-0 MD BO[facility]NA [facility]GR[facility]I 1-25 Anderso 00:00: n 00 DALBAVAN DRUG Active High Sob 2020-0 MD [facility]GR[facility] 1-25 Anderso 00:00: n 00 DALBAVAN DRUG Active High Sob 2020-0 MD [facility] INGR[facility]I 1-25 Anderso 00:00: n 00 DALBAVAN DRUG Active High Sob 2020-0 MD [facility] INGR[facility]I 1-25 Anderso 00:00: n 00 DALBAVAN DRUG Active High Sob 2020-0 MD [facility] INGR[facility] 1-25 Anderso 00:00: n 00 DALBAVAN DRUG Active High Sob 2020-0 MD BOZENA INGREDI 1-25 Anderso 00:00: n 00 DALBAVAN DRUG Active High Sob 2020-0 MD [facility] INGREDI 1-25 Anderso 00:00: n 00 DALBAVAN DRUG Active High Sob 2020-0 MD [facility]NA INGREDI 1-25 Anderso 00:00: n 00 DALBAVAN DRUG Active High Sob 2020-0 MD BOZENA INGREDI 1-25 Anderso 00:00: n 00 DALBAVAN DRUG Active High Sob 2020-0 MD BOZENA INGREDI 1-25 Anderso 00:00: n 00 DALBAVAN DRUG Active High Sob 2020-0 MD BOZENA INGREDI 1-25 Anderso 00:00: n 00 DALBAVAN DRUG Active High Sob 2020-0 MD BOZENA INGREDI 1-25 Anderso 00:00: n 00 DALBAVAN DRUG Active High Sob 2020-0 MD BOZENA INGREDI 1-25 Anderso 00:00: n 00 DALBAVAN DRUG Active High Sob 2020-0 MD BOZENA INGREDI 1-25 Anderso 00:00: n 00 DALBAVAN DRUG Active High Sob 2020-0 MD BOZENA INGREDI 1-25 Anderso 00:00: n 00 DALBAVAN DRUG Active High Sob 2020-0 MD BOZENA INGREDI 1-25 Anderso 00:00: n 00 DALBAVAN DRUG Active High Sob 2020-0 MD [facility] INGREDI 1-25 Anderso 00:00: n 00 DALBAVAN DRUG Active High Sob 2020-0 MD [facility]NA INGREDI 1-25 Anderso 00:00: n 00 DALBAVAN DRUG Active High Sob 2020-0 MD BOZENA INGREDI 1-25 Anderso 00:00: n 00 DALBAVAN DRUG Active High Sob 2020-0 MD [facility] INGREDI 1-25 Anderso 00:00: n 00 DALBAVAN DRUG Active High Sob 2020-0 MD BO[facility] INGREDI 1-25 Anderso 00:00: n 00 DALBAVAN DRUG Active High Sob 2020-0 MD [facility] INGR[facility]I 1-25 Anderso 00:00: n 00 DALBAVAN DRUG Active High Sob 2020-0 MD BO[facility] INGREDI 1-25 Anderso 00:00: n 00 DALBAVAN DRUG Active High Sob 2020-0 MD BO[facility]NA INGREDI 1-25 Anderso 00:00: n 00 DALBAVAN DRUG Active High Sob 2020-0 MD BOZENA INGREDI 1-25 Anderso 00:00: n 00 DALBAVAN DRUG Active High Sob 2020-0 MD BO[facility]NA INGREDI 1-25 Anderso 00:00: n 00 DALBAVAN DRUG Active High Sob 2020-0 MD BOZENA INGREDI 1-25 Anderso 00:00: n 00 DALBAVAN DRUG Active High Sob 2020-0 MD BOZENA INGREDI 1-25 Anderso 00:00: n 00 DALBAVAN DRUG Active High Sob 2020-0 MD BOZENA INGREDI 1-25 Anderso 00:00: n 00 DALBAVAN DRUG Active High Sob 2020-0 MD BO[facility]NA INGREDI 1-25 Anderso 00:00: n 00 DALBAVAN DRUG Active High Sob 2020-0 MD BOZENA INGREDI 1-25 Anderso 00:00: n 00 DALBAVAN DRUG Active High Sob 2020-0 MD BOZENA INGREDI 1-25 Anderso 00:00: n 00 DALBAVAN DRUG Active High Sob 2020-0 MD BOZENA INGREDI 1-25 Anderso 00:00: n 00 DALBAVAN DRUG Active High Sob 2020-0 MD BOZENA INGREDI 1-25 Anderso 00:00: n 00 DALBAVAN DRUG Active High Sob 2020-0 MD BOZENA INGREDI 1-25 Anderso 00:00: n 00 DALBAVAN DRUG Active High Sob 2020-0 MD BOZENA INGREDI 1-25 Anderso 00:00: n 00 DALBAVAN DRUG Active High Sob 2020-0 MD BOZENA INGREDI 1-25 Anderso 00:00: n 00 DALBAVAN DRUG Active High Sob 2020-0 MD BOZENA INGREDI 1-25 Anderso 00:00: n 00 DALBAVAN DRUG Active High Sob 2020-0 MD BOZENA INGREDI 1-25 Anderso 00:00: n 00 DALBAVAN DRUG Active High Sob 2020-0 MD BOZENA INGREDI 1-25 Anderso 00:00: n 00 DALBAVAN DRUG Active High Sob 2020-0 MD BOZE[facility] INGREDI 1-25 Anderso 00:00: n 00 DALBAVAN DRUG Active High Sob 2020-0 MD BOZENA INGREDI 1-25 Anderso 00:00: n 00 DALBAVAN DRUG Active High Sob 2020-0 MD BOZENA INGREDI 1-25 Anderso 00:00: n 00 DALBAVAN DRUG Active High Sob 2020-0 MD BOZENA INGREDI 1-25 Anderso 00:00: n 00 DALBAVAN DRUG Active High Sob 2020-0 MD BOZE[facility] INGREDI 1-25 Anderso 00:00: n 00 DALBAVAN DRUG Active High Sob 2020-0 MD BOZE[facility] INGREDI 1-25 Anderso 00:00: n 00 DALBAVAN DRUG Active High Sob 2020-0 MD BOZENA INGREDI 1-25 Anderso 00:00: n 00 DALBAVAN DRUG Active High Sob 2020-0 MD BOZENA INGREDI 1-25 Anderso 00:00: n 00 DALBAVAN DRUG Active High Sob 2020-0 MD BOZENA INGREDI 1-25 Anderso 00:00: n 00 DALBAVAN DRUG Active High Sob 2020-0 MD BOZENA INGREDI 1-25 Anderso 00:00: n 00 DALBAVAN DRUG Active High Sob 2020-0 MD BOZENA INGREDI 1-25 Anderso 00:00: n 00 DALBAVAN DRUG Active High Sob 2020-0 MD BOZENA INGREDI 1-25 Anderso 00:00: n 00 DALBAVAN DRUG Active High Sob 2020-0 MD BOZENA INGREDI 1-25 Anderso 00:00: n 00 DALBAVAN DRUG Active High Sob 2020-0 MD BOZENA INGREDI 1-25 Anderso 00:00: n 00 DALBAVAN DRUG Active High Sob 2020-0 MD BOZENA INGREDI 1-25 Anderso 00:00: n 00 DALBAVAN DRUG Active High Sob 2020-0 MD BOZENA INGREDI 1-25 Anderso 00:00: n 00 DALBAVAN DRUG Active High Sob 2020-0 MD BOZENA INGREDI 1-25 Anderso 00:00: n 00 DALBAVAN DRUG Active High Sob 2020-0 MD BOZENA INGREDI 1-25 Anderso 00:00: n 00 DALBAVAN DRUG Active High Sob 2020-0 MD BOZENA INGREDI 1-25 Anderso 00:00: n 00 DALBAVAN DRUG Active High Sob 2020-0 MD BOZENA INGREDI 1-25 Anderso 00:00: n 00 DALBAVAN DRUG Active High Sob 2020-0 MD BOZENA INGREDI 1-25 Anderso 00:00: n 00 DALBAVAN DRUG Active High Sob 2020-0 MD BOZENA INGREDI 1-25 Anderso 00:00: n 00 DALBAVAN DRUG Active High Sob 2020-0 MD BOZENA INGREDI 1-25 Anderso 00:00: n 00 DALBAVAN DRUG Active High Sob 2020-0 MD BOZENA INGREDI 1-25 Anderso 00:00: n 00 DALBAVAN DRUG Active High Sob 2020-0 MD BOZENA INGREDI 1-25 Anderso 00:00: n 00 DALBAVAN DRUG Active High Sob 2020-0 MD BOZENA INGREDI 1-25 Anderso 00:00: n 00 DALBAVAN DRUG Active High Sob 2020-0 MD BOZENA INGREDI 1-25 Anderso 00:00: n 00 DALBAVAN DRUG Active High Sob 2020-0 MD BOZENA INGREDI 1-25 Anderso 00:00: n 00 DALBAVAN DRUG Active High Sob 2020-0 MD BOZENA INGREDI 1-25 Anderso 00:00: n 00 DALBAVAN DRUG Active High Sob 2020-0 MD BOZENA INGREDI 1-25 Anderso 00:00: n 00 DALBAVAN DRUG Active High Sob 2020-0 MD BOZENA INGREDI 1-25 Anderso 00:00: n 00 DALBAVAN DRUG Active High Sob 2020-0 MD BOZENA INGREDI 1-25 Anderso 00:00: n 00 DALBAVAN DRUG Active High Sob 2020-0 MD BOZENA INGREDI 1-25 Anderso 00:00: n 00 DALBAVAN DRUG Active High Sob 2020-0 MD BOZENA INGREDI 1-25 Anderso 00:00: n 00 DALBAVAN DRUG Active High Sob 2020-0 MD BOZENA INGREDI 1-25 Anderso 00:00: n 00 DALBAVAN DRUG Active High Sob 2020-0 MD BOZENA INGREDI 1-25 Anderso 00:00: n 00 DALBAVAN DRUG Active High Sob 2020-0 MD BOZENA INGREDI 1-25 Anderso 00:00: n 00 DALBAVAN DRUG Active High Sob 2020-0 MD BOZENA INGREDI 1-25 Anderso 00:00: n 00 DALBAVAN DRUG Active High Sob 2020-0 MD BOZENA INGREDI 1-25 Anderso 00:00: n 00 DALBAVAN DRUG Active High Sob 2020-0 MD BOZENA INGREDI 1-25 Anderso 00:00: n 00 DALBAVAN DRUG Active High Sob 2020-0 MD BOZENA INGREDI 1-25 Anderso 00:00: n 00 DALBAVAN DRUG Active High Sob 2020-0 MD BOZENA INGREDI 1-25 Anderso 00:00: n 00 DALBAVAN DRUG Active High Sob 2020-0 MD BOZENA INGREDI 1-25 Anderso 00:00: n 00 DALBAVAN DRUG Active High Sob 2020-0 MD BOZENA INGREDI 1-25 Anderso 00:00: n 00 DALBAVAN DRUG Active High Sob 2020-0 MD BOZENA INGREDI 1-25 Anderso 00:00: n 00 DALBAVAN DRUG Active High Sob 2020-0 MD BOZENA INGREDI 1-25 Anderso 00:00: n 00 DALBAVAN DRUG Active High Sob 2020-0 MD BOZENA INGREDI 1-25 Anderso 00:00: n 00 DALBAVAN DRUG Active High Sob 2020-0 MD BOZENA INGREDI 1-25 Anderso 00:00: n 00 DALBAVAN DRUG Active High Sob 2020-0 MD BOZENA INGREDI 1-25 Anderso 00:00: n 00 DALBAVAN DRUG Active High Sob 2020-0 MD BOZENA INGREDI 1-25 Anderso 00:00: n 00 DALBAVAN DRUG Active High Sob 2020-0 MD BOZENA INGREDI 1-25 Anderso 00:00: n 00 DALBAVAN DRUG Active High Sob 2020-0 MD BOZENA INGREDI 1-25 Anderso 00:00: n 00 DALBAVAN DRUG Active High Sob 2020-0 MD BOZENA INGREDI 1-25 Anderso 00:00: n 00 DALBAVAN DRUG Active High Sob 2020-0 MD BOZENA INGREDI 1-25 Anderso 00:00: n 00 DALBAVAN DRUG Active High Sob 2020-0 MD BOZENA INGREDI 1-25 Anderso 00:00: n 00 DALBAVAN DRUG Active High Sob 2020-0 MD BOZENA INGREDI 1-25 Anderso 00:00: n 00 DALBAVAN DRUG Active High Sob 2020-0 MD BOZENA INGREDI 1-25 Anderso 00:00: n 00 DALBAVAN DRUG Active High Sob 2020-0 MD BOZENA INGREDI 1-25 Anderso 00:00: n 00 DALBAVAN DRUG Active High Sob 2020-0 MD BOZENA INGREDI 1-25 Anderso 00:00: n 00 DALBAVAN DRUG Active High Sob 2020-0 MD BOZENA INGREDI 1-25 Anderso 00:00: n 00 DALBAVAN DRUG Active High Sob 2020-0 MD BOZENA INGREDI 1-25 Anderso 00:00: n 00 DALBAVAN DRUG Active High Sob 2020-0 MD BOZENA INGREDI 1-25 Anderso 00:00: n 00 DALBAVAN DRUG Active High Sob 2020-0 MD BOZENA INGREDI 1-25 Anderso 00:00: n 00 DALBAVAN DRUG Active High Sob 2020-0 MD BOZENA INGREDI 1-25 Anderso 00:00: n 00 DALBAVAN DRUG Active High Sob 2020-0 MD BOZENA INGREDI 1-25 Anderso 00:00: n 00 DALBAVAN DRUG Active High Sob 2020-0 MD BOZENA INGREDI 1-25 Anderso 00:00: n 00 DALBAVAN DRUG Active High Sob 2020-0 MD BOZENA INGREDI 1-25 Anderso 00:00: n 00 DALBAVAN DRUG Active High Sob 2020-0 MD BOZENA INGREDI 1-25 Anderso 00:00: n 00 DALBAVAN DRUG Active High Sob 2020-0 MD BOZENA INGREDI 1-25 Anderso 00:00: n 00 DALBAVAN DRUG Active High Sob 2020-0 MD BOZENA INGREDI 1-25 Anderso 00:00: n 00 DALBAVAN DRUG Active High Sob 2020-0 MD BOZENA INGREDI 1-25 Anderso 00:00: n 00 DALBAVAN DRUG Active High Sob 2020-0 MD BOZENA INGREDI 1-25 Anderso 00:00: n 00 DALBAVAN DRUG Active High Sob 2020-0 MD BOZENA INGREDI 1-25 Anderso 00:00: n 00 DALBAVAN DRUG Active High Sob 2020-0 MD BOZENA INGREDI 1-25 Anderso 00:00: n 00 DALBAVAN DRUG Active High Sob 2020-0 MD BOZENA INGREDI 1-25 Anderso 00:00: n 00 DALBAVAN DRUG Active High Sob 2020-0 MD BOZENA INGREDI 1-25 Anderso 00:00: n 00 DALBAVAN DRUG Active High Sob 2020-0 MD BOZENA INGREDI 1-25 Anderso 00:00: n 00 DALBAVAN DRUG Active High Sob 2020-0 MD BOZENA INGREDI 1-25 Anderso 00:00: n 00 DALBAVAN DRUG Active High Sob 2020-0 MD BOZENA INGREDI 1-25 Anderso 00:00: n 00 DALBAVAN DRUG Active High Sob 2020-0 MD BOZENA INGREDI 1-25 Anderso 00:00: n 00 DALBAVAN DRUG Active High Sob 2020-0 MD BOZENA INGREDI 1-25 Anderso 00:00: n 00 DALBAVAN DRUG Active High Sob 2020-0 MD BOZENA INGREDI 1-25 Anderso 00:00: n 00 DALBAVAN DRUG Active High Sob 2020-0 MD BOZENA INGREDI 1-25 Anderso 00:00: n 00 DALBAVAN DRUG Active High Sob 2020-0 MD BOZENA INGREDI 1-25 Anderso 00:00: n 00 DALBAVAN DRUG Active High Sob 2020-0 MD BOZENA INGREDI 1-25 Anderso 00:00: n 00 DALBAVAN DRUG Active High Sob 2020-0 MD BOZENA INGREDI 1-25 Anderso 00:00: n 00 DALBAVAN DRUG Active High Sob 2020-0 MD BOZENA INGREDI 1-25 Anderso 00:00: n 00 DALBAVAN DRUG Active High Sob 2020-0 MD BOZENA INGREDI 1-25 Anderso 00:00: n 00 DALBAVAN DRUG Active High Sob 2020-0 MD BOZENA INGREDI 1-25 Anderso 00:00: n 00 DALBAVAN DRUG Active High Sob 2020-0 MD BOZENA INGREDI 1-25 Anderso 00:00: n 00 DALBAVAN DRUG Active High Sob 2020-0 MD BOZENA INGREDI 1-25 Anderso 00:00: n 00 DALBAVAN DRUG Active High Sob 2020-0 MD BOZENA INGREDI 1-25 Anderso 00:00: n 00 DALBAVAN DRUG Active High Sob 2020-0 MD BOZENA INGREDI 1-25 Anderso 00:00: n 00 DALBAVAN DRUG Active High Sob 2020-0 MD BOZENA INGREDI 1-25 Anderso 00:00: n 00 DALBAVAN DRUG Active High Sob 2020-0 MD BOZENA INGREDI 1-25 Anderso 00:00: n 00 DALBAVAN DRUG Active High Sob 2020-0 MD BOZENA INGREDI 1-25 Anderso 00:00: n 00 DALBAVAN DRUG Active High Sob 2020-0 MD BOZENA INGREDI 1-25 Anderso 00:00: n 00 DALBAVAN DRUG Active High Sob 2020-0 MD BOZENA INGREDI 1-25 Anderso 00:00: n 00 DALBAVAN DRUG Active High Sob 2020-0 MD BOZENA INGREDI 1-25 Anderso 00:00: n 00 DALBAVAN DRUG Active High Sob 2020-0 MD BOZENA INGREDI 1-25 Anderso 00:00: n 00 DALBAVAN DRUG Active High Sob 2020-0 MD BOZENA INGREDI 1-25 Anderso 00:00: n 00 DALBAVAN DRUG Active High Sob 2020-0 MD BOZENA INGREDI 1-25 Anderso 00:00: n 00 DALBAVAN DRUG Active High Sob 2020-0 MD BO[facility]NA INGREDI 1-25 Anderso 00:00: n 00 DALBAVAN DRUG Active High Sob 2020-0 MD BOZENA INGREDI 1-25 Anderso 00:00: n 00 DALBAVAN DRUG Active High Sob 2020-0 MD BOZENA INGREDI 1-25 Anderso 00:00: n 00 DALBAVAN DRUG Active High Sob 2020-0 MD BOZENA INGREDI 1-25 Anderso 00:00: n 00 DALBAVAN DRUG Active High Sob 2020-0 MD BO[facility]NA INGREDI 1-25 Anderso 00:00: n 00 DALBAVAN DRUG Active High Sob 2020-0 MD BO[facility]NA INGREDI 1-25 Anderso 00:00: n 00 DALBAVAN DRUG Active High Sob 2020-0 MD BO[facility]NA INGREDI 1-25 Anderso 00:00: n 00 DALBAVAN DRUG Active High Sob 2020-0 MD BO[facility] INGREDI 1-25 Anderso 00:00: n 00 DALBAVAN DRUG Active High Sob 2020-0 MD BO[facility] INGREDI 1-25 Anderso 00:00: n 00 DALBAVAN DRUG Active High Sob 2020-0 MD BO[facility] INGREDI 1-25 Anderso 00:00: n 00 DALBAVAN DRUG Active High Sob 2020-0 MD BOZENA INGREDI 1-25 Anderso 00:00: n 00 DALBAVAN DRUG Active High Sob 2020-0 MD BOZENA INGREDI 1-25 Anderso 00:00: n 00 DALBAVAN DRUG Active High Sob 2020-0 MD BOZENA INGREDI 1-25 Anderso 00:00: n 00 DALBAVAN DRUG Active High Sob 2020-0 MD BOZENA INGREDI 1-25 Anderso 00:00: n 00 DALBAVAN DRUG Active High Sob 2020-0 MD BOZENA INGREDI 1-25 Anderso 00:00: n 00 DALBAVAN DRUG Active High Sob 2020-0 MD BOZENA INGREDI 1-25 Anderso 00:00: n 00 DALBAVAN DRUG Active High Sob 2020-0 MD BOZENA INGREDI 1-25 Anderso 00:00: n 00 DALBAVAN DRUG Active High Sob 2020-0 MD BOZENA INGREDI 1-25 Anderso 00:00: n 00 DALBAVAN DRUG Active High Sob 2020-0 MD BO[facility]NA INGREDI 1-25 Anderso 00:00: n 00 DALBAVAN DRUG Active High Sob 2020-0 MD BOZENA INGREDI 1-25 Anderso 00:00: n 00 DALBAVAN DRUG Active High Sob 2020-0 MD BOZENA INGREDI 1-25 Anderso 00:00: n 00 DALBAVAN DRUG Active High Sob 2020-0 MD BOZENA INGREDI 1-25 Anderso 00:00: n 00 DALBAVAN DRUG Active High Sob 2020-0 MD BO[facility] INGREDI 1-25 Anderso 00:00: n 00 DALBAVAN DRUG Active High Sob 2020-0 MD BOZENA INGREDI 1-25 Anderso 00:00: n 00 DALBAVAN DRUG Active High Sob 2020-0 MD BOZENA INGREDI 1-25 Anderso 00:00: n 00 DALBAVAN DRUG Active High Sob 2020-0 MD BOZENA INGREDI 1-25 Anderso 00:00: n 00 DALBAVAN DRUG Active High Sob 2020-0 MD BO[facility]NA INGREDI 1-25 Anderso 00:00: n 00 DALBAVAN DRUG Active High Sob 2020-0 MD BO[facility]NA INGREDI 1-25 Anderso 00:00: n 00 DALBAVAN DRUG Active High Sob 2020-0 MD [facility] INGREDI 1-25 Anderso 00:00: n 00 DALBAVAN DRUG Active High Sob 2020-0 MD BO[facility] INGREDI 1-25 Anderso 00:00: n 00 DALBAVAN DRUG Active High Sob 2020-0 MD [facility] INGREDI 1-25 Anderso 00:00: n 00 DALBAVAN DRUG Active High Sob 2020-0 MD [facility] INGREDI 1-25 Anderso 00:00: n 00 DALBAVAN DRUG Active High Sob 2020-0 MD [facility] INGREDI 1-25 Anderso 00:00: n 00 DALBAVAN DRUG Active High Sob 2020-0 MD BO[facility] INGREDI 1-25 Anderso 00:00: n 00 DALBAVAN DRUG Active High Sob 2020-0 MD [facility] INGREDI 1-25 Anderso 00:00: n 00 DALBAVAN DRUG Active High Sob 2020-0 MD [facility] INGREDI 1-25 Anderso 00:00: n 00 DALBAVAN DRUG Active High Sob 2020-0 MD [facility] INGREDI 1-25 Anderso 00:00: n 00 DALBAVAN DRUG Active High Sob 2020-0 MD [facility] INGREDI 1-25 Anderso 00:00: n 00 DALBAVAN DRUG Active High Sob 2020-0 MD BO[facility] INGREDI 1-25 Anderso 00:00: n 00 DALBAVAN DRUG Active High Sob 2020-0 MD [facility] INGREDI 1-25 Anderso 00:00: n 00 DALBAV[facility] DRUG Active High Sob 2020-0 MD [facility] INGREDI 1-25 Anderso 00:00: n 00 DALBAV[facility] DRUG Active High Sob 2020-0 MD [facility] INGREDI 1-25 Anderso 00:00: n 00 DALBAVAN DRUG Active High Sob 2020-0 MD [facility] INGREDI 1-25 Anderso 00:00: n 00 [facility]ALBAV[facility] DRUG Active High Sob 2020-0 MD [facility] INGREDI 1-25 Anderso 00:00: n 00 DALBAVAN DRUG Active High Sob 2020-0 MD [facility] INGREDI 1-25 Anderso 00:00: n 00 DALBAV[facility] DRUG Active High Sob 2020-0 MD [facility] INGREDI 1-25 Anderso 00:00: n 00 DALBAVAN DRUG Active High Sob 2020-0 MD [facility] INGREDI 1-25 Anderso 00:00: n 00 DALBAVAN DRUG Active High Sob 2020-0 MD BO[facility]NA INGREDI 1-25 Anderso 00:00: n 00 DALBAVAN DRUG Active High Sob 2020-0 MD [facility] INGREDI 1-25 Anderso 00:00: n 00 DALBAVAN DRUG Active High Sob 2020-0 MD BO[facility]NA INGREDI 1-25 Anderso 00:00: n 00 DALBAV[facility] DRUG Active High Sob 2020-0 MD BO[facility] INGREDI 1-25 Anderso 00:00: n 00 DALBAV[facility] DRUG Active High Sob 2020-0 MD [facility] INGREDI 1-25 Anderso 00:00: n 00 DALBAV[facility] DRUG Active High Sob 2020-0 MD [facility] INGREDI 1-25 Anderso 00:00: n 00 DALBAV[facility] DRUG Active High Sob 2020-0 MD [facility] INGREDI 1-25 Anderso 00:00: n 00 DALBAV[facility] DRUG Active High Sob 2020-0 MD [facility] INGREDI 1-25 Anderso 00:00: n 00 DALBAV[facility] DRUG Active High Sob 2020-0 MD [facility] INGREDI 1-25 Anderso 00:00: n 00 DALBAV[facility] DRUG Active High Sob 2020-0 MD [facility] INGREDI 1-25 Anderso 00:00: n 00 DALBAV[facility] DRUG Active High Sob 2020-0 MD [facility] INGREDI 1-25 Anderso 00:00: n 00 DALBAV[facility] DRUG Active High Sob 2020-0 MD [facility] INGREDI 1-25 Anderso 00:00: n 00 DALBAVAN DRUG Active High Sob 2020-0 MD [facility] INGREDI 1-25 Anderso 00:00: n 00 DALBAV[facility] DRUG Active High Sob 2020-0 MD [facility] INGREDI 1-25 Anderso 00:00: n 00 [facility]ALB[facility]UG Active High Sob 2020-0 MD [facility] INGREDI 1-25 Anderso 00:00: n 00 [facility]ALB[facility] DRUG Active High Sob~Rash 2020-0 MD [facility]GR[facility]I 1-25 Anderso 00:00: n 00 [facility]ALB[facility]UG Active High Sob~Rash 2020-0 MD [facility]I 1-25 Anderso 00:00: n 00 [facility]ALB[facility]UG Active High Sob 2020-0 MD [facility] INGREDI 1-25 Anderso 00:00: n 00 DALBAV[facility] DRUG Active High Sob 2020-0 MD BO[facility] INGREDI 1-25 Anderso 00:00: n 00 DALBAVAN DRUG Active High Sob 2020-0 MD BO[facility] INGREDI 1-25 Anderso 00:00: n 00 DALBAVAN DRUG Active High Sob 2020-0 MD [facility]NA INGREDI 1-25 Anderso 00:00: n 00 DALBAVAN DRUG Active High Sob 2020-0 MD BO[facility] INGREDI 1-25 Anderso 00:00: n 00 DALBAVAN DRUG Active High Sob 2020-0 MD [facility] INGREDI 1-25 Anderso 00:00: n 00 DALBAVAN DRUG Active High Sob 2020-0 MD BO[facility] INGREDI 1-25 Anderso 00:00: n 00 DALBAVAN DRUG Active High Sob 2020-0 MD BO[facility] INGREDI 1-25 Anderso 00:00: n 00 DALBAVAN DRUG Active High Sob 2020-0 MD [facility] INGREDI 1-25 Anderso 00:00: n 00 DALBAVAN DRUG Active High Sob 2020-0 MD [facility] INGREDI 1-25 Anderso 00:00: n 00 DALBAVAN DRUG Active High Sob 2020-0 MD [facility] INGREDI 1-25 Anderso 00:00: n 00 DALBAVAN DRUG Active High Sob 2020-0 MD [facility] INGREDI 1-25 Anderso 00:00: n 00 DALBAV[facility] DRUG Active High Sob 2020-0 MD [facility] INGREDI 1-25 Anderso 00:00: n 00 DALBAVAN DRUG Active High Sob 2020-0 MD [facility] INGREDI 1-25 Anderso 00:00: n 00 DALBAV[facility] DRUG Active High Sob 2020-0 MD [facility] INGREDI 1-25 Anderso 00:00: n 00 DALBAV[facility] DRUG Active High Sob 2020-0 MD [facility] INGREDI 1-25 Anderso 00:00: n 00 DALBAV[facility] DRUG Active High Sob 2020-0 MD [facility] INGREDI 1-25 Anderso 00:00: n 00 DALBAVAN DRUG Active High Sob 2020-0 MD [facility] INGREDI 1-25 Anderso 00:00: n 00 DALBAVAN DRUG Active High Sob 2020-0 MD [facility] INGREDI 1-25 Anderso 00:00: n 00 DALBAVAN DRUG Active High Sob 2020-0 MD BO[facility] INGREDI 1-25 Anderso 00:00: n 00 DALBAVAN DRUG Active High Sob 2020-0 MD BO[facility] INGREDI 1-25 Anderso 00:00: n 00 DALBAV[facility] [employer]UG Active High Sob 2020-0 MD BOZENA INGREDI 1-25 Anderso 00:00: n 00 [facility] [employer]UG Active High Sob 2020-0 MD BOZENA INGREDI 1-25 Anderso 00:00: n 00 [facility]AV[facility] [employer]UG Active High Sob 2020-0 MD BOZENA INGREDI 1-25 Anderso 00:00: n 00 [facility] [employer]UG Active High Sob 2020-0 MD BOZENA INGREDI 1-25 Anderso 00:00: n 00 DALBAV[facility] [employer]UG Active High Sob 2020-0 MD BOZENA INGREDI 1-25 Anderso 00:00: n 00 [facility] [employer]UG Active High Sob 2020-0 MD BOZENA INGREDI 1-25 Anderso 00:00: n 00 [facility] [employer]UG Active High Sob 2020-0 MD BOZENA INGREDI 1-25 Anderso 00:00: n 00 [facility]AV[facility] [employer]UG Active High Sob 2020-0 MD BOZENA INGREDI 1-25 Anderso 00:00: n 00 D[facility]BAV[facility] [employer]UG Active High Sob 2020-0 MD BOZENA INGREDI 1-25 Anderso 00:00: n 00 [facility]AV[facility] [employer]UG Active High Sob 2020-0 MD BOZENA INGREDI 1-25 Anderso 00:00: n 00 [facility] [employer]UG Active High Sob 2020-0 MD BOZENA INGREDI 1-25 Anderso 00:00: n 00 [facility] [employer]UG Active High Sob 2020-0 MD BOZENA INGREDI 1-25 Anderso 00:00: n 00 [facility] [employer]UG Active High Sob 2020-0 MD BOZENA INGREDI 1-25 Anderso 00:00: n 00 [facility] [employer]UG Active High Sob 2020-0 MD BOZENA INGREDI 1-25 Anderso 00:00: n 00 [facility] [employer]UG Active High Sob 2020-0 MD BOZENA INGREDI 1-25 Anderso 00:00: n 00 [facility] [employer]UG Active High Sob 2020-0 MD BOZENA INGREDI 1-25 Anderso 00:00: n 00 D[facility] [employer]UG Active High Sob 2020-0 MD BOZENA INGREDI 1-25 Anderso 00:00: n 00 [facility] [employer]UG Active High Sob 2020-0 MD BOZENA INGREDI 1-25 Anderso 00:00: n 00 POVIDONE DRUG Active Low Rash 2018-0 MD -IODINE INGREDI 8-30 Anderso 00:00: n 00 POVIDONE DRUG Active Low Rash 2018-0 MD -IODINE INGREDI 8-30 Anderso 00:00: n 00 POVIDONE DRUG Active Low Rash 2018-0 MD -IODINE INGREDI 8-30 Anderso 00:00: n 00 POVIDONE DRUG Active Low Rash 2018-0 MD -IODINE INGREDI 8-30 Anderso 00:00: n 00 POVIDONE DRUG Active Low Rash 2018-0 MD -IODINE INGREDI 8-30 Anderso 00:00: n 00 POVIDONE DRUG Active Low Rash 2018-0 MD -IODINE INGREDI 8-30 Anderso 00:00: n 00 POVIDONE DRUG Active Low Rash 2018-0 MD -IODINE INGREDI 8-30 Anderso 00:00: n 00 POVIDONE DRUG Active Low Rash 2018-0 MD -IODINE INGREDI 8-30 Anderso 00:00: n 00 POVIDONE DRUG Active Low Rash 2018-0 MD -IODINE INGREDI 8-30 Anderso 00:00: n 00 POVIDONE DRUG Active Low Rash 2018-0 MD -IODINE INGREDI 8-30 Anderso 00:00: n 00 POVIDONE DRUG Active Low Rash 2018-0 MD -IODINE INGREDI 8-30 Anderso 00:00: n 00 POVIDONE DRUG Active Low Rash 2018-0 MD -IODINE INGREDI 8-30 Anderso 00:00: n 00 POVIDONE DRUG Active Low Rash 2018-0 MD -IODINE INGREDI 8-30 Anderso 00:00: n 00 POVIDONE DRUG Active Low Rash 2018-0 MD -IODINE INGREDI 8-30 Anderso 00:00: n 00 POVIDONE DRUG Active Low Rash 2018-0 MD -IODINE INGREDI 8-30 Anderso 00:00: n 00 POVIDONE DRUG Active Low Rash 2018-0 MD -IODINE INGREDI 8-30 Anderso 00:00: n 00 POVIDONE DRUG Active Low Rash 2018-0 MD -IODINE INGREDI 8-30 Anderso 00:00: n 00 POVIDONE DRUG Active Low Rash 2018-0 MD -IODINE INGREDI 8-30 Anderso 00:00: n 00 POVIDONE DRUG Active Low Rash 2018-0 MD -IODINE INGREDI 8-30 Anderso 00:00: n 00 POVIDONE DRUG Active Low Rash 2018-0 MD -IODINE INGREDI 8-30 Anderso 00:00: n 00 POVIDONE DRUG Active Low Rash 2018-0 MD -IODINE INGREDI 8-30 Anderso 00:00: n 00 POVIDONE DRUG Active Low Rash 2018-0 MD -IODINE INGREDI 8-30 Anderso 00:00: n 00 POVIDONE DRUG Active Low Rash 2018-0 MD -IODINE INGREDI 8-30 Anderso 00:00: n 00 POVIDONE DRUG Active Low Rash 2018-0 MD -IODINE INGREDI 8-30 Anderso 00:00: n 00 POVIDONE DRUG Active Low Rash 2018-0 MD -IODINE INGREDI 8-30 Anderso 00:00: n 00 POVIDONE DRUG Active Low Rash 2018-0 MD -IODINE INGREDI 8-30 Anderso 00:00: n 00 POVIDONE DRUG Active Low Rash 2018-0 MD -IODINE INGREDI 8-30 Anderso 00:00: n 00 POVIDONE DRUG Active Low Rash 2018-0 MD -IODINE INGREDI 8-30 Anderso 00:00: n 00 POVIDONE DRUG Active Low Rash 2018-0 MD -IODINE INGREDI 8-30 Anderso 00:00: n 00 POVIDONE DRUG Active Low Rash 2018-0 MD -IODINE INGREDI 8-30 Anderso 00:00: n 00 POVIDONE DRUG Active Low Rash 2018-0 MD -IODINE INGREDI 8-30 Anderso 00:00: n 00 POVIDONE DRUG Active Low Rash 2018-0 MD -IODINE INGREDI 8-30 Anderso 00:00: n 00 POVIDONE DRUG Active Low Rash 2018-0 MD -IODINE INGREDI 8-30 Anderso 00:00: n 00 POVIDONE DRUG Active Low Rash 2018-0 MD -IODINE INGREDI 8-30 Anderso 00:00: n 00 POVIDONE DRUG Active Low Rash 2018-0 MD -IODINE INGREDI 8-30 Anderso 00:00: n 00 POVIDONE DRUG Active Low Rash 2018-0 MD -IODINE INGREDI 8-30 Anderso 00:00: n 00 POVIDONE DRUG Active Low Rash 2018-0 MD -IODINE INGREDI 8-30 Anderso 00:00: n 00 POVIDONE DRUG Active Low Rash 2018-0 MD -IODINE INGREDI 8-30 Anderso 00:00: n 00 POVIDONE DRUG Active Low Rash 2018-0 MD -IODINE INGREDI 8-30 Anderso 00:00: n 00 POVIDONE DRUG Active Low Rash 2018-0 MD -IODINE INGREDI 8-30 Anderso 00:00: n 00 POVIDONE DRUG Active Low Rash 2018-0 MD -IODINE INGREDI 8-30 Anderso 00:00: n 00 POVIDONE DRUG Active Low Rash 2018-0 MD -IODINE INGREDI 8-30 Anderso 00:00: n 00 POVIDONE DRUG Active Low Rash 2018-0 MD -IODINE INGREDI 8-30 Anderso 00:00: n 00 POVIDONE DRUG Active Low Rash 2018-0 MD -IODINE INGREDI 8-30 Anderso 00:00: n 00 POVIDONE DRUG Active Low Rash 2018-0 MD -IODINE INGREDI 8-30 Anderso 00:00: n 00 POVIDONE DRUG Active Low Rash 2018-0 MD -IODINE INGREDI 8-30 Anderso 00:00: n 00 POVIDONE DRUG Active Low Rash 2018-0 MD -IODINE INGREDI 8-30 Anderso 00:00: n 00 POVIDONE DRUG Active Low Rash 2018-0 MD -IODINE INGREDI 8-30 Anderso 00:00: n 00 POVIDONE DRUG Active Low Rash 2018-0 MD -IODINE INGREDI 8-30 Anderso 00:00: n 00 POVIDONE DRUG Active Low Rash 2018-0 MD -IODINE INGREDI 8-30 Anderso 00:00: n 00 POVIDONE DRUG Active Low Rash 2018-0 MD -IODINE INGREDI 8-30 Anderso 00:00: n 00 POVIDONE DRUG Active Low Rash 2018-0 MD -IODINE INGREDI 8-30 Anderso 00:00: n 00 POVIDONE DRUG Active Low Rash 2018-0 MD -IODINE INGREDI 8-30 Anderso 00:00: n 00 POVIDONE DRUG Active Low Rash 2018-0 MD -IODINE INGREDI 8-30 Anderso 00:00: n 00 POVIDONE DRUG Active Low Rash 2018-0 MD -IODINE INGREDI 8-30 Anderso 00:00: n 00 POVIDONE DRUG Active Low Rash 2018-0 MD -IODINE INGREDI 8-30 Anderso 00:00: n 00 POVIDONE DRUG Active Low Rash 2018-0 MD -IODINE INGREDI 8-30 Anderso 00:00: n 00 POVIDONE DRUG Active Low Rash 2018-0 MD -IODINE INGREDI 8-30 Anderso 00:00: n 00 POVIDONE DRUG Active Low Rash 2018-0 MD -IODINE INGREDI 8-30 Anderso 00:00: n 00 POVIDONE DRUG Active Low Rash 2018-0 MD -IODINE INGREDI 8-30 Anderso 00:00: n 00 POVIDONE DRUG Active Low Rash 2018-0 MD -IODINE INGREDI 8-30 Anderso 00:00: n 00 POVIDONE DRUG Active Low Rash 2018-0 MD -IODINE INGREDI 8-30 Anderso 00:00: n 00 POVIDONE DRUG Active Low Rash 2018-0 MD -IODINE INGREDI 8-30 Anderso 00:00: n 00 POVIDONE DRUG Active Low Rash 2018-0 MD -IODINE INGREDI 8-30 Anderso 00:00: n 00 POVIDONE DRUG Active Low Rash 2018-0 MD -IODINE INGREDI 8-30 Anderso 00:00: n 00 POVIDONE DRUG Active Low Rash 2018-0 MD -IODINE INGREDI 8-30 Anderso 00:00: n 00 POVIDONE DRUG Active Low Rash 2018-0 MD -IODINE INGREDI 8-30 Anderso 00:00: n 00 POVIDONE DRUG Active Low Rash 2018-0 MD -IODINE INGREDI 8-30 Anderso 00:00: n 00 POVIDONE DRUG Active Low Rash 2018-0 MD -IODINE INGREDI 8-30 Anderso 00:00: n 00 POVIDONE DRUG Active Low Rash 2018-0 MD -IODINE INGREDI 8-30 Anderso 00:00: n 00 POVIDONE DRUG Active Low Rash 2018-0 MD -IODINE INGREDI 8-30 Anderso 00:00: n 00 POVIDONE DRUG Active Low Rash 2018-0 MD -IODINE INGREDI 8-30 Anderso 00:00: n 00 POVIDONE DRUG Active Low Rash 2018-0 MD -IODINE INGREDI 8-30 Anderso 00:00: n 00 POVIDONE DRUG Active Low Rash 2018-0 MD -IODINE INGREDI 8-30 Anderso 00:00: n 00 POVIDONE DRUG Active Low Rash 2018-0 MD -IODINE INGREDI 8-30 Anderso 00:00: n 00 POVIDONE DRUG Active Low Rash 2018-0 MD -IODINE INGREDI 8-30 Anderso 00:00: n 00 POVIDONE DRUG Active Low Rash 2018-0 MD -IODINE INGREDI 8-30 Anderso 00:00: n 00 POVIDONE DRUG Active Low Rash 2018-0 MD -IODINE INGREDI 8-30 Anderso 00:00: n 00 POVIDONE DRUG Active Low Rash 2018-0 MD -IODINE INGREDI 8-30 Anderso 00:00: n 00 POVIDONE DRUG Active Low Rash 2018-0 MD -IODINE INGREDI 8-30 Anderso 00:00: n 00 POVIDONE DRUG Active Low Rash 2018-0 MD -IODINE INGREDI 8-30 Anderso 00:00: n 00 POVIDONE DRUG Active Low Rash 2018-0 MD -IODINE INGREDI 8-30 Anderso 00:00: n 00 POVIDONE DRUG Active Low Rash 2018-0 MD -IODINE INGREDI 8-30 Anderso 00:00: n 00 POVIDONE DRUG Active Low Rash 2018-0 MD -IODINE INGREDI 8-30 Anderso 00:00: n 00 POVIDONE DRUG Active Low Rash 2018-0 MD -IODINE INGREDI 8-30 Anderso 00:00: n 00 POVIDONE DRUG Active Low Rash 2018-0 MD -IODINE INGREDI 8-30 Anderso 00:00: n 00 POVIDONE DRUG Active Low Rash 2018-0 MD -IODINE INGREDI 8-30 Anderso 00:00: n 00 POVIDONE DRUG Active Low Rash 2018-0 MD -IODINE INGREDI 8-30 Anderso 00:00: n 00 POVIDONE DRUG Active Low Rash 2018-0 MD -IODINE INGREDI 8-30 Anderso 00:00: n 00 POVIDONE DRUG Active Low Rash 2018-0 MD -IODINE INGREDI 8-30 Anderso 00:00: n 00 POVIDONE DRUG Active Low Rash 2018-0 MD -IODINE INGREDI 8-30 Anderso 00:00: n 00 POVIDONE DRUG Active Low Rash 2018-0 MD -IODINE INGREDI 8-30 Anderso 00:00: n 00 POVIDONE DRUG Active Low Rash 2018-0 MD -IODINE INGREDI 8-30 Anderso 00:00: n 00 POVIDONE DRUG Active Low Rash 2018-0 MD -IODINE INGREDI 8-30 Anderso 00:00: n 00 POVIDONE DRUG Active Low Rash 2018-0 MD -IODINE INGREDI 8-30 Anderso 00:00: n 00 POVIDONE DRUG Active Low Rash 2018-0 MD -IODINE INGREDI 8-30 Anderso 00:00: n 00 POVIDONE DRUG Active Low Rash 2018-0 MD -IODINE INGREDI 8-30 Anderso 00:00: n 00 POVIDONE DRUG Active Low Rash 2018-0 MD -IODINE INGREDI 8-30 Anderso 00:00: n 00 POVIDONE DRUG Active Low Rash 2018-0 MD -IODINE INGREDI 8-30 Anderso 00:00: n 00 POVIDONE DRUG Active Low Rash 2018-0 MD -IODINE INGREDI 8-30 Anderso 00:00: n 00 POVIDONE DRUG Active Low Rash 2018-0 MD -IODINE INGREDI 8-30 Anderso 00:00: n 00 POVIDONE DRUG Active Low Rash 2018-0 MD -IODINE INGREDI 8-30 Anderso 00:00: n 00 POVIDONE DRUG Active Low Rash 2018-0 MD -IODINE INGREDI 8-30 Anderso 00:00: n 00 POVIDONE DRUG Active Low Rash 2018-0 MD -IODINE INGREDI 8-30 Anderso 00:00: n 00 POVIDONE DRUG Active Low Rash 2018-0 MD -IODINE INGREDI 8-30 Anderso 00:00: n 00 POVIDONE DRUG Active Low Rash 2018-0 MD -IODINE INGREDI 8-30 Anderso 00:00: n 00 POVIDONE DRUG Active Low Rash 2018-0 MD -IODINE INGREDI 8-30 Anderso 00:00: n 00 POVIDONE DRUG Active Low Rash 2018-0 MD -IODINE INGREDI 8-30 Anderso 00:00: n 00 POVIDONE DRUG Active Low Rash 2018-0 MD -IODINE INGREDI 8-30 Anderso 00:00: n 00 POVIDONE DRUG Active Low Rash 2018-0 MD -IODINE INGREDI 8-30 Anderso 00:00: n 00 POVIDONE DRUG Active Low Rash 2018-0 MD -IODINE INGREDI 8-30 Anderso 00:00: n 00 POVIDONE DRUG Active Low Rash 2018-0 MD -IODINE INGREDI 8-30 Anderso 00:00: n 00 POVIDONE DRUG Active Low Rash 2018-0 MD -IODINE INGREDI 8-30 Anderso 00:00: n 00 POVIDONE DRUG Active Low Rash 2018-0 MD -IODINE INGREDI 8-30 Anderso 00:00: n 00 POVIDONE DRUG Active Low Rash 2018-0 MD -IODINE INGREDI 8-30 Anderso 00:00: n 00 POVIDONE DRUG Active Low Rash 2018-0 MD -IODINE INGREDI 8-30 Anderso 00:00: n 00 POVIDONE DRUG Active Low Rash 2018-0 MD -IODINE INGREDI 8-30 Anderso 00:00: n 00 POVIDONE DRUG Active Low Rash 2018-0 MD -IODINE INGREDI 8-30 Anderso 00:00: n 00 POVIDONE DRUG Active Low Rash 2018-0 MD -IODINE INGREDI 8-30 Anderso 00:00: n 00 POVIDONE DRUG Active Low Rash 2018-0 MD -IODINE INGREDI 8-30 Anderso 00:00: n 00 POVIDONE DRUG Active Low Rash 2018-0 MD -IODINE INGREDI 8-30 Anderso 00:00: n 00 POVIDONE DRUG Active Low Rash 2018-0 MD -IODINE INGREDI 8-30 Anderso 00:00: n 00 POVIDONE DRUG Active Low Rash 2018-0 MD -IODINE INGREDI 8-30 Anderso 00:00: n 00 POVIDONE DRUG Active Low Rash 2018-0 MD -IODINE INGREDI 8-30 Anderso 00:00: n 00 POVIDONE DRUG Active Low Rash 2018-0 MD -IODINE INGREDI 8-30 Anderso 00:00: n 00 POVIDONE DRUG Active Low Rash 2018-0 MD -IODINE INGREDI 8-30 Anderso 00:00: n 00 POVIDONE DRUG Active Low Rash 2018-0 MD -IODINE INGREDI 8-30 Anderso 00:00: n 00 POVIDONE DRUG Active Low Rash 2018-0 MD -IODINE INGREDI 8-30 Anderso 00:00: n 00 POVIDONE DRUG Active Low Rash 2018-0 MD -IODINE INGREDI 8-30 Anderso 00:00: n 00 POVIDONE DRUG Active Low Rash 2018-0 MD -IODINE INGREDI 8-30 Anderso 00:00: n 00 POVIDONE DRUG Active Low Rash 2018-0 MD -IODINE INGREDI 8-30 Anderso 00:00: n 00 POVIDONE DRUG Active Low Rash 2018-0 MD -IODINE INGREDI 8-30 Anderso 00:00: n 00 POVIDONE DRUG Active Low Rash 2018-0 MD -IODINE INGREDI 8-30 Anderso 00:00: n 00 POVIDONE DRUG Active Low Rash 2018-0 MD -IODINE INGREDI 8-30 Anderso 00:00: n 00 POVIDONE DRUG Active Low Rash 2018-0 MD -IODINE INGREDI 8-30 Anderso 00:00: n 00 POVIDONE DRUG Active Low Rash 2018-0 MD -IODINE INGREDI 8-30 Anderso 00:00: n 00 POVIDONE DRUG Active Low Rash 2018-0 MD -IODINE INGREDI 8-30 Anderso 00:00: n 00 POVIDONE DRUG Active Low Rash 2018-0 MD -IODINE INGREDI 8-30 Anderso 00:00: n 00 POVIDONE DRUG Active Low Rash 2018-0 MD -IODINE INGREDI 8-30 Anderso 00:00: n 00 POVIDONE DRUG Active Low Rash 2018-0 MD -IODINE INGREDI 8-30 Anderso 00:00: n 00 POVIDONE DRUG Active Low Rash 2018-0 MD -IODINE INGREDI 8-30 Anderso 00:00: n 00 POVIDONE DRUG Active Low Rash 2018-0 MD -IODINE INGREDI 8-30 Anderso 00:00: n 00 POVIDONE DRUG Active Low Rash 2018-0 MD -IODINE INGREDI 8-30 Anderso 00:00: n 00 POVIDONE DRUG Active Low Rash 2018-0 MD -IODINE INGREDI 8-30 Anderso 00:00: n 00 POVIDONE DRUG Active Low Rash 2018-0 MD -IODINE INGREDI 8-30 Anderso 00:00: n 00 POVIDONE DRUG Active Low Rash 2018-0 MD -IODINE INGREDI 8-30 Anderso 00:00: n 00 POVIDONE DRUG Active Low Rash 2018-0 MD -IODINE INGREDI 8-30 Anderso 00:00: n 00 POVIDONE DRUG Active Low Rash 2018-0 MD -IODINE INGREDI 8-30 Anderso 00:00: n 00 POVIDONE DRUG Active Low Rash 2018-0 MD -IODINE INGREDI 8-30 Anderso 00:00: n 00 POVIDONE DRUG Active Low Rash 2018-0 MD -IODINE INGREDI 8-30 Anderso 00:00: n 00 POVIDONE DRUG Active Low Rash 2018-0 MD -IODINE INGREDI 8-30 Anderso 00:00: n 00 POVIDONE DRUG Active Low Rash 2018-0 MD -IODINE INGREDI 8-30 Anderso 00:00: n 00 POVIDONE DRUG Active Low Rash 2018-0 MD -IODINE INGREDI 8-30 Anderso 00:00: n 00 POVIDONE DRUG Active Low Rash 2018-0 MD -IODINE INGREDI 8-30 Anderso 00:00: n 00 POVIDONE DRUG Active Low Rash 2018-0 MD -IODINE INGREDI 8-30 Anderso 00:00: n 00 POVIDONE DRUG Active Low Rash 2018-0 MD -IODINE INGREDI 8-30 Anderso 00:00: n 00 POVIDONE DRUG Active Low Rash 2018-0 MD -IODINE INGREDI 8-30 Anderso 00:00: n 00 POVIDONE DRUG Active Low Rash 2018-0 MD -IODINE INGREDI 8-30 Anderso 00:00: n 00 POVIDONE DRUG Active Low Rash 2018-0 MD -IODINE INGREDI 8-30 Anderso 00:00: n 00 POVIDONE DRUG Active Low Rash 2018-0 MD -IODINE INGREDI 8-30 Anderso 00:00: n 00 POVIDONE DRUG Active Low Rash 2018-0 MD -IODINE INGREDI 8-30 Anderso 00:00: n 00 POVIDONE DRUG Active Low Rash 2018-0 MD -IODINE INGREDI 8-30 Anderso 00:00: n 00 POVIDONE DRUG Active Low Rash 2018-0 MD -IODINE INGREDI 8-30 Anderso 00:00: n 00 POVIDONE DRUG Active Low Rash 2018-0 MD -IODINE INGREDI 8-30 Anderso 00:00: n 00 POVIDONE DRUG Active Low Rash 2018-0 MD -IODINE INGREDI 8-30 Anderso 00:00: n 00 POVIDONE DRUG Active Low Rash 2018-0 MD -IODINE INGREDI 8-30 Anderso 00:00: n 00 POVIDONE DRUG Active Low Rash 2018-0 MD -IODINE INGREDI 8-30 Anderso 00:00: n 00 POVIDONE DRUG Active Low Rash 2018-0 MD -IODINE INGREDI 8-30 Anderso 00:00: n 00 POVIDONE DRUG Active Low Rash 2018-0 MD -IODINE INGREDI 8-30 Anderso 00:00: n 00 POVIDONE DRUG Active Low Rash 2018-0 MD -IODINE INGREDI 8-30 Anderso 00:00: n 00 POVIDONE DRUG Active Low Rash 2018-0 MD -IODINE INGREDI 8-30 Anderso 00:00: n 00 POVIDONE DRUG Active Low Rash 2018-0 MD -IODINE INGREDI 8-30 Anderso 00:00: n 00 POVIDONE DRUG Active Low Rash 2018-0 MD -IODINE INGREDI 8-30 Anderso 00:00: n 00 POVIDONE DRUG Active Low Rash 2018-0 MD -IODINE INGREDI 8-30 Anderso 00:00: n 00 POVIDONE DRUG Active Low Rash 2018-0 MD -IODINE INGREDI 8-30 Anderso 00:00: n 00 POVIDONE DRUG Active Low Rash 2018-0 MD -IODINE INGREDI 8-30 Anderso 00:00: n 00 POVIDONE DRUG Active Low Rash 2018-0 MD -IODINE INGREDI 8-30 Anderso 00:00: n 00 POVIDONE DRUG Active Low Rash 2018-0 MD -IODINE INGREDI 8-30 Anderso 00:00: n 00 POVIDONE DRUG Active Low Rash 2018-0 MD -IODINE INGREDI 8-30 Anderso 00:00: n 00 POVIDONE DRUG Active Low Rash 2018-0 MD -IODINE INGREDI 8-30 Anderso 00:00: n 00 POVIDONE DRUG Active Low Rash 2018-0 MD -IODINE INGREDI 8-30 Anderso 00:00: n 00 POVIDONE DRUG Active Low Rash 2018-0 MD -IODINE INGREDI 8-30 Anderso 00:00: n 00 POVIDONE DRUG Active Low Rash 2018-0 MD -IODINE INGREDI 8-30 Anderso 00:00: n 00 POVIDONE DRUG Active Low Rash 2018-0 MD -IODINE INGREDI 8-30 Anderso 00:00: n 00 POVIDONE DRUG Active Low Rash 2018-0 MD -IODINE INGREDI 8-30 Anderso 00:00: n 00 POVIDONE DRUG Active Low Rash 2018-0 MD -IODINE INGREDI 8-30 Anderso 00:00: n 00 POVIDONE DRUG Active Low Rash 2018-0 MD -IODINE INGREDI 8-30 Anderso 00:00: n 00 POVIDONE DRUG Active Low Rash 2018-0 MD -IODINE INGREDI 8-30 Anderso 00:00: n 00 POVIDONE DRUG Active Low Rash 2018-0 MD -IODINE INGREDI 8-30 Anderso 00:00: n 00 POVIDONE DRUG Active Low Rash 2018-0 MD -IODINE INGREDI 8-30 Anderso 00:00: n 00 POVIDONE DRUG Active Low Rash 2018-0 MD -IODINE INGREDI 8-30 Anderso 00:00: n 00 POVIDONE DRUG Active Low Rash 2018-0 MD -IODINE INGREDI 8-30 Anderso 00:00: n 00 POVIDONE DRUG Active Low Rash 2018-0 MD -IODINE INGREDI 8-30 Anderso 00:00: n 00 POVIDONE DRUG Active Low Rash 2018-0 MD -IODINE INGREDI 8-30 Anderso 00:00: n 00 POVIDONE DRUG Active Low Rash 2018-0 MD -IODINE INGREDI 8-30 Anderso 00:00: n 00 POVIDONE DRUG Active Low Rash 2018-0 MD -IODINE INGREDI 8-30 Anderso 00:00: n 00 POVIDONE DRUG Active Low Rash 2018-0 MD -IODINE INGREDI 8-30 Anderso 00:00: n 00 POVIDONE DRUG Active Low Rash 2018-0 MD -IODINE INGREDI 8-30 Anderso 00:00: n 00 POVIDONE DRUG Active Low Rash 2018-0 MD -IODINE INGREDI 8-30 Anderso 00:00: n 00 POVIDONE DRUG Active Low Rash 2018-0 MD -IODINE INGREDI 8-30 Anderso 00:00: n 00 POVIDONE DRUG Active Low Rash 2018-0 MD -IODINE INGREDI 8-30 Anderso 00:00: n 00 POVIDONE DRUG Active Low Rash 2018-0 MD -IODINE INGREDI 8-30 Anderso 00:00: n 00 POVIDONE DRUG Active Low Rash 2018-0 MD -IODINE INGREDI 8-30 Anderso 00:00: n 00 POVIDONE DRUG Active Low Rash 2018-0 MD -IODINE INGREDI 8-30 Anderso 00:00: n 00 POVIDONE DRUG Active Low Rash 2018-0 MD -IODINE INGREDI 8-30 Anderso 00:00: n 00 POVIDONE DRUG Active Low Rash 2018-0 MD -IODINE INGREDI 8-30 Anderso 00:00: n 00 POVIDONE DRUG Active Low Rash 2018-0 MD -IODINE INGREDI 8-30 Anderso 00:00: n 00 POVIDONE DRUG Active Low Rash 2018-0 MD -IODINE INGREDI 8-30 Anderso 00:00: n 00 POVIDONE DRUG Active Low Rash 2018-0 MD -IODINE INGREDI 8-30 Anderso 00:00: n 00 POVIDONE DRUG Active Low Rash 2018-0 MD -IODINE INGREDI 8-30 Anderso 00:00: n 00 POVIDONE DRUG Active Low Rash 2018-0 MD -IODINE INGREDI 8-30 Anderso 00:00: n 00 POVIDONE DRUG Active Low Rash 2018-0 MD -IODINE INGREDI 8-30 Anderso 00:00: n 00 POVIDONE DRUG Active Low Rash 2018-0 MD -IODINE INGREDI 8-30 Anderso 00:00: n 00 POVIDONE DRUG Active Low Rash 2018-0 MD -IODINE INGREDI 8-30 Anderso 00:00: n 00 POVIDONE DRUG Active Low Rash 2018-0 MD -IODINE INGREDI 8-30 Anderso 00:00: n 00 POVIDONE DRUG Active Low Rash 2018-0 MD -IODINE INGREDI 8-30 Anderso 00:00: n 00 POVIDONE DRUG Active Low Rash 2018-0 MD -IODINE INGREDI 8-30 Anderso 00:00: n 00 POVIDONE DRUG Active Low Rash 2018-0 MD -IODINE INGREDI 8-30 Anderso 00:00: n 00 POVIDONE DRUG Active Low Rash 2018-0 MD -IODINE INGREDI 8-30 Anderso 00:00: n 00 POVIDONE DRUG Active Low Rash 2018-0 MD -IODINE INGREDI 8-30 Anderso 00:00: n 00 POVIDONE DRUG Active Low Rash 2018-0 MD -IODINE INGREDI 8-30 Anderso 00:00: n 00 POVIDONE DRUG Active Low Rash 2018-0 MD -IODINE INGREDI 8-30 Anderso 00:00: n 00 POVIDONE DRUG Active Low Rash 2018-0 MD -IODINE INGREDI 8-30 Anderso 00:00: n 00 POVIDONE DRUG Active Low Rash 2018-0 MD -IODINE INGREDI 8-30 Anderso 00:00: n 00 POVIDONE DRUG Active Low Rash 2018-0 MD -IODINE INGREDI 8-30 Anderso 00:00: n 00 POVIDONE DRUG Active Low Rash 2018-0 MD -IODINE INGREDI 8-30 Anderso 00:00: n 00 POVIDONE DRUG Active Low Rash 2018-0 MD -IODINE INGREDI 8-30 Anderso 00:00: n 00 POVIDONE DRUG Active Low Rash 2018-0 MD -IODINE INGREDI 8-30 Anderso 00:00: n 00 POVIDONE DRUG Active Low Rash 2018-0 MD -IODINE INGREDI 8-30 Anderso 00:00: n 00 POVIDONE DRUG Active Low Rash 2018-0 MD -IODINE INGREDI 8-30 Anderso 00:00: n 00 POVIDONE DRUG Active Low Rash 2018-0 MD -IODINE INGREDI 8-30 Anderso 00:00: n 00 POVIDONE DRUG Active Low Rash 2018-0 MD -IODINE INGREDI 8-30 Anderso 00:00: n 00 POVIDONE DRUG Active Low Rash 2018-0 MD -IODINE INGREDI 8-30 Anderso 00:00: n 00 POVIDONE DRUG Active Low Rash 2018-0 MD -IODINE INGREDI 8-30 Anderso 00:00: n 00 POVIDONE DRUG Active Low Rash 2018-0 MD -IODINE INGREDI 8-30 Anderso 00:00: n 00 POVIDONE DRUG Active Low Rash 2018-0 MD -IODINE INGREDI 8-30 Anderso 00:00: n 00 POVIDONE DRUG Active Low Rash 2018-0 MD -IODINE INGREDI 8-30 Anderso 00:00: n 00 POVIDONE DRUG Active Low Rash 2018-0 MD -IODINE INGREDI 8-30 Anderso 00:00: n 00 POVIDONE DRUG Active Low Rash 2018-0 MD -IODINE INGREDI 8-30 Anderso 00:00: n 00 POVIDONE DRUG Active Low Rash 2018-0 MD -IODINE INGREDI 8-30 Anderso 00:00: n 00 POVIDONE DRUG Active Low Rash 2018-0 MD -IODINE INGREDI 8-30 Anderso 00:00: n 00 POVIDONE DRUG Active Low Rash 2018-0 MD -IODINE INGREDI 8-30 Anderso 00:00: n 00 POVIDONE DRUG Active Low Rash 2018-0 MD -IODINE INGREDI 8-30 Anderso 00:00: n 00 POVIDONE DRUG Active Low Rash 2018-0 MD -IODINE INGREDI 8-30 Anderso 00:00: n 00 POVIDONE DRUG Active Low Rash 2018-0 MD -IODINE INGREDI 8-30 Anderso 00:00: n 00 POVIDONE DRUG Active Low Rash 2018-0 MD -IODINE INGREDI 8-30 Anderso 00:00: n 00 POVIDONE DRUG Active Low Rash 2018-0 MD -IODINE INGREDI 8-30 Anderso 00:00: n 00 POVIDONE DRUG Active Low Rash 2018-0 MD -IODINE INGREDI 8-30 Anderso 00:00: n 00 POVIDONE DRUG Active Low Rash 2018-0 MD -IODINE INGREDI 8-30 Anderso 00:00: n 00 POVIDONE DRUG Active Low Rash 2018-0 MD -IODINE INGREDI 8-30 Anderso 00:00: n 00 POVIDONE DRUG Active Low Rash 2018-0 MD -IODINE INGREDI 8-30 Anderso 00:00: n 00 POVIDONE DRUG Active Low Rash 2018-0 MD -IODINE INGREDI 8-30 Anderso 00:00: n 00 POVIDONE DRUG Active Low Rash 2018-0 MD -IODINE INGREDI 8-30 Anderso 00:00: n 00 POVIDONE DRUG Active Low Rash 2018-0 MD -IODINE INGREDI 8-30 Anderso 00:00: n 00 POVIDONE DRUG Active Low Rash 2018-0 MD -IODINE INGREDI 8-30 Anderso 00:00: n 00 POVIDONE DRUG Active Low Rash 2018-0 MD -IODINE INGREDI 8-30 Anderso 00:00: n 00 POVIDONE DRUG Active Low Rash 2018-0 MD -IODINE INGREDI 8-30 Anderso 00:00: n 00 POVIDONE DRUG Active Low Rash 2018-0 MD -IODINE INGREDI 8-30 Anderso 00:00: n 00 POVIDONE DRUG Active Low Rash 2018-0 MD -IODINE INGREDI 8-30 Anderso 00:00: n 00 Latex Propensi Active 2018-0 Methodi ty to 8-08 st adverse 00:00: Hospita reaction 00 l s to drug CODEINE DRUG Active Low Nausea 2016-0 MD INGREDI 6-16 Anderso 00:00: n 00 ADHESIVE DRUG Active Low Rash 2016-0 MD TAPE-BRENDAN 6-16 Anderso ICONES 00:00: n 00 CODEINE DRUG Active Low Nausea 2016-0 MD INGREDI 6-16 Anderso 00:00: n 00 ADHESIVE DRUG Active Low Rash 2016-0 MD TAPE-BRENDAN 6-16 Anderso ICONES 00:00: n 00 ADHESIVE DRUG Active Low Rash 2016-0 MD TAPE-BRENDAN 6-16 Anderso ICONES 00:00: n 00 CODEINE DRUG Active Low Nausea 2016-0 MD INGREDI 6-16 Anderso 00:00: n 00 ADHESIVE DRUG Active Low Rash 2016-0 MD TAPE-BRENDAN 6-16 Anderso ICONES 00:00: n 00 CODEINE DRUG Active Low Nausea 2016-0 MD INGREDI 6-16 Anderso 00:00: n 00 ADHESIVE DRUG Active Low Rash 2016-0 MD TAPE-BRENDAN 6-16 Anderso ICONES 00:00: n 00 CODEINE DRUG Active Low Nausea 2016-0 MD INGREDI 6-16 Anderso 00:00: n 00 ADHESIVE DRUG Active Low Rash 2016-0 MD TAPE-BRENDAN 6-16 Anderso ICONES 00:00: n 00 CODEINE DRUG Active Low Nausea 2016-0 MD INGREDI 6-16 Anderso 00:00: n 00 ADHESIVE DRUG Active Low Rash 2016-0 MD TAPE-BRENDAN 6-16 Anderso ICONES 00:00: n 00 CODEINE DRUG Active Low Nausea 2016-0 MD INGREDI 6-16 Anderso 00:00: n 00 CODEINE DRUG Active Low Nausea 2016-0 MD INGREDI 6-16 Anderso 00:00: n 00 ADHESIVE DRUG Active Low Rash 2016-0 MD TAPE-BRENDAN 6-16 Anderso ICONES 00:00: n 00 CODEINE DRUG Active Low Nausea 2016-0 MD INGREDI 6-16 Anderso 00:00: n 00 ADHESIVE DRUG Active Low Rash 2016-0 MD TAPE-BRENDAN 6-16 Anderso ICONES 00:00: n 00 CODEINE DRUG Active Low Nausea 2016-0 MD INGREDI 6-16 Anderso 00:00: n 00 ADHESIVE DRUG Active Low Rash 2016-0 MD TAPE-BRENDAN 6-16 Anderso ICONES 00:00: n 00 CODEINE DRUG Active Low Nausea 2016-0 MD INGREDI 6-16 Anderso 00:00: n 00 ADHESIVE DRUG Active Low Rash 2016-0 MD TAPE-BRENDAN 6-16 Anderso ICONES 00:00: n 00 CODEINE DRUG Active Low Nausea 2016-0 MD INGREDI 6-16 Anderso 00:00: n 00 ADHESIVE DRUG Active Low Rash 2016-0 MD TAPE-BRENDAN 6-16 Anderso ICONES 00:00: n 00 CODEINE DRUG Active Low Nausea 2016-0 MD INGREDI 6-16 Anderso 00:00: n 00 ADHESIVE DRUG Active Low Rash 2016-0 MD TAPE-BRENDAN 6-16 Anderso ICONES 00:00: n 00 CODEINE DRUG Active Low Nausea 2016-0 MD INGREDI 6-16 Anderso 00:00: n 00 ADHESIVE DRUG Active Low Rash 2016-0 MD TAPE-BRENDAN 6-16 Anderso ICONES 00:00: n 00 CODEINE DRUG Active Low Nausea 2016-0 MD INGREDI 6-16 Anderso 00:00: n 00 ADHESIVE DRUG Active Low Rash 2016-0 MD TAPE-BRENDAN 6-16 Anderso ICONES 00:00: n 00 CODEINE DRUG Active Low Nausea 2016-0 MD INGREDI 6-16 Anderso 00:00: n 00 ADHESIVE DRUG Active Low Rash 2016-0 MD TAPE-BRENDAN 6-16 Anderso ICONES 00:00: n 00 CODEINE DRUG Active Low Nausea 2016-0 MD INGREDI 6-16 Anderso 00:00: n 00 ADHESIVE DRUG Active Low Rash 2016-0 MD TAPE-BRENDAN 6-16 Anderso ICONES 00:00: n 00 CODEINE DRUG Active Low Nausea 2016-0 MD INGREDI 6-16 Anderso 00:00: n 00 ADHESIVE DRUG Active Low Rash 2016-0 MD TAPE-BRENDAN 6-16 Anderso ICONES 00:00: n 00 ADHESIVE DRUG Active Low Rash 2016-0 MD TAPE-BRENDAN 6-16 Anderso ICONES 00:00: n 00 CODEINE DRUG Active Low Nausea 2016-0 MD INGREDI 6-16 Anderso 00:00: n 00 ADHESIVE DRUG Active Low Rash 2016-0 MD TAPE-BRENDAN 6-16 Anderso ICONES 00:00: n 00 CODEINE DRUG Active Low Nausea 2016-0 MD INGREDI 6-16 Anderso 00:00: n 00 ADHESIVE DRUG Active Low Rash 2016-0 MD TAPE-BRENDAN 6-16 Anderso ICONES 00:00: n 00 CODEINE DRUG Active Low Nausea 2016-0 MD INGREDI 6-16 Anderso 00:00: n 00 ADHESIVE DRUG Active Low Rash 2016-0 MD TAPE-BRENDAN 6-16 Anderso ICONES 00:00: n 00 CODEINE DRUG Active Low Nausea 2016-0 MD INGREDI 6-16 Anderso 00:00: n 00 ADHESIVE DRUG Active Low Rash 2016-0 MD TAPE-BRENDAN 6-16 Anderso ICONES 00:00: n 00 CODEINE DRUG Active Low Nausea 2016-0 MD INGREDI 6-16 Anderso 00:00: n 00 CODEINE DRUG Active Low Nausea 2016-0 MD INGREDI 6-16 Anderso 00:00: n 00 ADHESIVE DRUG Active Low Rash 2016-0 MD TAPE-BRENDAN 6-16 Anderso ICONES 00:00: n 00 CODEINE DRUG Active Low Nausea 2016-0 MD INGREDI 6-16 Anderso 00:00: n 00 ADHESIVE DRUG Active Low Rash 2016-0 MD TAPE-BRENDAN 6-16 Anderso ICONES 00:00: n 00 CODEINE DRUG Active Low Nausea 2016-0 MD INGREDI 6-16 Anderso 00:00: n 00 ADHESIVE DRUG Active Low Rash 2016-0 MD TAPE-BRENDAN 6-16 Anderso ICONES 00:00: n 00 CODEINE DRUG Active Low Nausea 2016-0 MD INGREDI 6-16 Anderso 00:00: n 00 ADHESIVE DRUG Active Low Rash 2016-0 MD TAPE-BRNEDAN 6-16 Anderso ICONES 00:00: n 00 CODEINE DRUG Active Low Nausea 2016-0 MD INGREDI 6-16 Anderso 00:00: n 00 ADHESIVE DRUG Active Low Rash 2016-0 MD TAPE-BRENDAN 6-16 Anderso ICONES 00:00: n 00 CODEINE DRUG Active Low Nausea 2016-0 MD INGREDI 6-16 Anderso 00:00: n 00 ADHESIVE DRUG Active Low Rash 2016-0 MD TAPE-BRENDAN 6-16 Anderso ICONES 00:00: n 00 CODEINE DRUG Active Low Nausea 2016-0 MD INGREDI 6-16 Anderso 00:00: n 00 ADHESIVE DRUG Active Low Rash 2016-0 MD TAPE-BRENDAN 6-16 Anderso ICONES 00:00: n 00 CODEINE DRUG Active Low Nausea 2016-0 MD INGREDI 6-16 Anderso 00:00: n 00 ADHESIVE DRUG Active Low Rash 2016-0 MD TAPE-BRENDAN 6-16 Anderso ICONES 00:00: n 00 ADHESIVE DRUG Active Low Rash 2016-0 MD [facility] 6-16 [facility]CON[facility] 00:00: n 00 CODEINE DRUG Active Low Nausea 2016-0 MD [facility] 6-16 [facility] 00:00: n 00 ADHESIVE DRUG Active Low Rash 2016-0 MD [facility] 6-16 [facility] ICON[facility] 00:00: n 00 CODEINE DRUG Active Low Nausea 2016-0 MD [facility] 6-16 Anders[facility] 00:00: n 00 ADHESIVE DRUG Active Low Rash 2016-0 MD [facility] 6-16 [facility] ICON[facility] 00:00: n 00 CODEINE DRUG Active Low Nausea 2016-0 MD [facility] 6-16 Anderso 00:00: n 00 ADHESIVE DRUG Active Low Rash 2016-0 MD [facility] 6-16 [facility] ICON[facility] 00:00: n 00 CODEINE DRUG Active Low Nausea 2016-0 MD [facility] 6-16 Anderso 00:00: n 00 ADHESIVE DRUG Active Low Rash 2016-0 MD [facility] 6-16 [facility] 00:00: n 00 CODEINE DRUG Active Low Nausea 2016-0 MD [facility] 6-16 [facility] 00:00: n 00 CODEINE DRUG Active Low Nausea 2016-0 MD [facility] 6-16 Anderso 00:00: n 00 ADHESIVE DRUG Active Low Rash 2016-0 MD [facility] 6-16 [facility] 00:00: n 00 CODEINE DRUG Active Low Nausea 2016-0 MD [facility] 6-16 [facility] 00:00: n 00 ADHESIVE DRUG Active Low Rash 2016-0 MD [facility] 6-16 [facility] ICON[facility] 00:00: n 00 CODEINE DRUG Active Low Nausea 2016-0 MD [facility] 6-16 Anderso 00:00: n 00 ADHESIVE DRUG Active Low Rash 2016-0 MD [facility] 6-16 [facility] 00:00: n 00 CODEINE DRUG Active Low Nausea 2016-0 MD [facility] 6-16 Anders[facility] 00:00: n 00 ADHESIVE DRUG Active Low Rash 2016-0 MD [facility] 6-16 [facility] 00:00: n 00 CODEINE DRUG Active Low Nausea 2016-0 MD [facility] 6-16 Anderso 00:00: n 00 ADHESIVE DRUG Active Low Rash 2016-0 MD [facility] 6-16 [facility] 00:00: n 00 CODEINE DRUG Active Low Nausea 2016-0 MD [facility] 6-16 [facility] 00:00: n 00 ADHESIVE DRUG Active Low Rash 2016-0 MD [facility] 6-16 [facility] 00:00: n 00 CODEINE DRUG Active Low Nausea 2016-0 MD [facility] 6-16 Anders[facility] 00:00: n 00 ADHESIVE DRUG Active Low Rash 2016-0 MD [facility] 6-16 [facility] 00:00: n 00 CODEINE DRUG Active Low Nausea 2016-0 MD [facility] 6-16 Anders[facility] 00:00: n 00 ADHESIVE DRUG Active Low Rash 2016-0 MD [facility] 6-16 [facility] ICON[facility] 00:00: n 00 ADHESIVE DRUG Active Low Rash 2016-0 MD [facility] 6-16 [facility] I[facility] 00:00: n 00 CODEINE DRUG Active Low Nausea 2016-0 MD [facility] 6-16 Anders[facility] 00:00: n 00 ADHESIVE DRUG Active Low Rash 2016-0 MD [facility] 6-16 [facility] I[facility] 00:00: n 00 CODEINE DRUG Active Low Nausea 2016-0 MD [facility] 6-16 Anders[facility] 00:00: n 00 ADHESIVE DRUG Active Low Rash 2016-0 MD [facility] 6-16 [facility] ICON[facility] 00:00: n 00 CODEINE DRUG Active Low Nausea 2016-0 MD [facility] 6-16 Anders[facility] 00:00: n 00 ADHESIVE DRUG Active Low Rash 2016-0 MD [facility] 6-16 [facility] 00:00: n 00 CODEINE DRUG Active Low Nausea 2016-0 MD [facility] 6-16 Anders[facility] 00:00: n 00 ADHESIVE DRUG Active Low Rash 2016-0 MD [facility] 6-16 [facility] 00:00: n 00 CODEINE DRUG Active Low Nausea 2016-0 MD [facility] 6-16 Anders[facility] 00:00: n 00 ADHESIVE DRUG Active Low Rash 2016-0 MD [facility] 6-16 [facility] 00:00: n 00 Adhesive Propensi Active 2015-0 unknown Metho di [facility] ty to 6-16 st icones adverse 00:00: Hospita reaction 00 l s to drug Alcohol Propensi Active 2015-0 unknown Method i ty to 6-16 st adverse 00:00: Hospita reaction 00 l s to drug Iodine Propensi Active 2015-0 pruritus Method i And ty to 6-16 st Iodide adverse 00:00: Hospita Containi reaction 00 l ng s to Products drug ADHESIVE DRUG Active Low Rash 2016-0 MD [facility] 6-16 [facility] 00:00: n 00 ADHESIVE DRUG Active Low Rash 2016-0 MD [facility] 6-16 [facility] 00:00: n 00 CODEINE DRUG Active Low Nausea 2016-0 MD [facility] 6-16 [facility] 00:00: n 00 CODEINE DRUG Active Low Nausea 2016-0 MD [facility] 6-16 Anderso 00:00: n 00 ADHESIVE DRUG Active Low Rash 2016-0 MD [facility] 6-16 [facility] 00:00: n 00 CODEINE DRUG Active Low Nausea 2016-0 MD [facility] 6-16 Anderso 00:00: n 00 ADHESIVE DRUG Active Low Rash 2016-0 MD [facility] 6-16 [facility] 00:00: n 00 CODEINE DRUG Active Low Nausea 2016-0 MD [facility] 6-16 Anders[facility] 00:00: n 00 ADHESIVE DRUG Active Low Rash 2016-0 MD [facility] 6-16 [facility] I[facility] 00:00: n 00 CODEINE DRUG Active Low Nausea 2016-0 MD [facility] 6-16 Anderso 00:00: n 00 ADHESIVE DRUG Active Low Rash 2016-0 MD [facility] 6-16 [facility] 00:00: n 00 CODEINE DRUG Active Low Nausea 2016-0 MD [facility] 6-16 Anderso 00:00: n 00 ADHESIVE DRUG Active Low Rash 2016-0 MD [facility] 6-16 [facility] 00:00: n 00 CODEINE DRUG Active Low Nausea 2016-0 MD [facility] 6-16 Anderso 00:00: n 00 ADHESIVE DRUG Active Low Rash 2016-0 MD [facility] 6-16 [facility] 00:00: n 00 CODEINE DRUG Active Low Nausea 2016-0 MD [facility] 6-16 Anderso 00:00: n 00 ADHESIVE DRUG Active Low Rash 2016-0 MD [facility] 6-16 [facility] 00:00: n 00 CODEINE DRUG Active Low Nausea 2016-0 MD [facility] 6-16 Anderso 00:00: n 00 ADHESIVE DRUG Active Low Rash 2016-0 MD [facility] 6-16 [facility] 00:00: n 00 CODEINE DRUG Active Low Nausea 2016-0 MD [facility] 6-16 Anders[facility] 00:00: n 00 ADHESIVE DRUG Active Low Rash 2016-0 MD [facility] 6-16 [facility] I[facility] 00:00: n 00 CODEINE DRUG Active Low Nausea 2016-0 MD [facility] 6-16 Anderso 00:00: n 00 ADHESIVE DRUG Active Low Rash 2016-0 MD [facility] 6-16 [facility] I[facility] 00:00: n 00 ADHESIVE DRUG Active Low Rash 2016-0 MD [facility] 6-16 [facility] 00:00: n 00 CODEINE DRUG Active Low Nausea 2016-0 MD [facility] 6-16 Anders[facility] 00:00: n 00 ADHESIVE DRUG Active Low Rash 2016-0 MD [facility] 6-16 [facility] 00:00: n 00 CODEINE DRUG Active Low Nausea 2016-0 MD [facility] 6-16 Anderso 00:00: n 00 ADHESIVE DRUG Active Low Rash 2016-0 MD [facility] 6-16 [facility] 00:00: n 00 CODEINE DRUG Active Low Nausea 2016-0 MD [facility] 6-16 Anders[facility] 00:00: n 00 ADHESIVE DRUG Active Low Rash 2016-0 MD [facility] 6-16 [facility] 00:00: n 00 CODEINE DRUG Active Low Nausea 2016-0 MD [facility] 6-16 Anders[facility] 00:00: n 00 ADHESIVE DRUG Active Low Rash 2016-0 MD [facility] 6-16 [facility] 00:00: n 00 CODEINE DRUG Active Low Nausea 2016-0 MD [facility] 6-16 Anderso 00:00: n 00 ADHESIVE DRUG Active Low Rash 2016-0 MD [facility] 6-16 [facility] 00:00: n 00 CODEINE DRUG Active Low Nausea 2016-0 MD [facility] 6-16 Anderso 00:00: n 00 CODEINE DRUG Active Low Nausea 2016-0 MD [facility] 6-16 Anderso 00:00: n 00 ADHESIVE DRUG Active Low Rash 2016-0 MD [facility] 6-16 [facility] 00:00: n 00 CODEINE DRUG Active Low Nausea 2016-0 MD [facility] 6-16 Anderso 00:00: n 00 ADHESIVE DRUG Active Low Rash 2016-0 MD [facility] 6-16 [facility] 00:00: n 00 CODEINE DRUG Active Low Nausea 2016-0 MD [facility] 6-16 Anderso 00:00: n 00 ADHESIVE DRUG Active Low Rash 2016-0 MD [facility] 6-16 [facility] 00:00: n 00 CODEINE DRUG Active Low Nausea 2016-0 MD [facility] 6-16 Anders[facility] 00:00: n 00 ADHESIVE DRUG Active Low Rash 2016-0 MD [facility] 6-16 [facility] 00:00: n 00 CODEINE DRUG Active Low Nausea 2016-0 MD [facility] 6-16 Anderso 00:00: n 00 ADHESIVE DRUG Active Low Rash 2016-0 MD [facility] 6-16 [facility] 00:00: n 00 CODEINE DRUG Active Low Nausea 2016-0 MD [facility] 6-16 Anderso 00:00: n 00 ADHESIVE DRUG Active Low Rash 2016-0 MD [facility] 6-16 [facility] 00:00: n 00 CODEINE DRUG Active Low Nausea 2016-0 MD [facility] 6-16 Anders[facility] 00:00: n 00 ADHESIVE DRUG Active Low Rash 2016-0 MD [facility] 6-16 [facility] 00:00: n 00 CODEINE DRUG Active Low Nausea 2016-0 MD [facility] 6-16 Anders[facility] 00:00: n 00 ADHESIVE DRUG Active Low Rash 2016-0 MD [facility] 6-16 [facility] 00:00: n 00 ADHESIVE DRUG Active Low Rash 2016-0 MD [facility] 6-16 [facility] I[facility] 00:00: n 00 CODEINE DRUG Active Low Nausea 2016-0 MD [facility] 6-16 Anders[facility] 00:00: n 00 ADHESIVE DRUG Active Low Rash 2016-0 MD [facility] 6-16 [facility] 00:00: n 00 CODEINE DRUG Active Low Nausea 2016-0 MD [facility] 6-16 Anderso 00:00: n 00 ADHESIVE DRUG Active Low Rash 2016-0 MD [facility] 6-16 [facility] I[facility] 00:00: n 00 CODEINE DRUG Active Low Nausea 2016-0 MD [facility] 6-16 Anderso 00:00: n 00 ADHESIVE DRUG Active Low Rash 2016-0 MD [facility] 6-16 [facility] I[facility] 00:00: n 00 CODEINE DRUG Active Low Nausea 2016-0 MD [facility] 6-16 Anderso 00:00: n 00 ADHESIVE DRUG Active Low Rash 2016-0 MD [facility] 6-16 [facility] I[facility] 00:00: n 00 CODEINE DRUG Active Low Nausea 2016-0 MD [facility] 6-16 Anderso 00:00: n 00 CODEINE DRUG Active Low Nausea 2016-0 MD [facility] 6-16 Anderso 00:00: n 00 ADHESIVE DRUG Active Low Rash 2016-0 MD [facility] 6-16 [facility] 00:00: n 00 CODEINE DRUG Active Low Nausea 2016-0 MD [facility] 6-16 Anderso 00:00: n 00 ADHESIVE DRUG Active Low Rash 2016-0 MD [facility] 6-16 [facility] I[facility] 00:00: n 00 CODEINE DRUG Active Low Nausea 2016-0 MD [facility] 6-16 Anderso 00:00: n 00 ADHESIVE DRUG Active Low Rash 2016-0 MD [facility] 6-16 [facility] ICON[facility] 00:00: n 00 CODEINE DRUG Active Low Nausea 2016-0 MD [facility] 6-16 Anderso 00:00: n 00 ADHESIVE DRUG Active Low Rash 2016-0 MD [facility] 6-16 [facility] I[facility] 00:00: n 00 CODEINE DRUG Active Low Nausea 2016-0 MD [facility] 6-16 Anderso 00:00: n 00 ADHESIVE DRUG Active Low Rash 2016-0 MD [facility] 6-16 [facility] I[facility] 00:00: n 00 CODEINE DRUG Active Low Nausea 2016-0 MD [facility] 6-16 Anderso 00:00: n 00 ADHESIVE DRUG Active Low Rash 2016-0 MD [facility] 6-16 [facility] ICON[facility] 00:00: n 00 CODEINE DRUG Active Low Nausea 2016-0 MD [facility] 6-16 Anderso 00:00: n 00 ADHESIVE DRUG Active Low Rash 2016-0 MD [facility] 6-16 [facility] ICON[facility] 00:00: n 00 CODEINE DRUG Active Low Nausea 2016-0 MD [facility] 6-16 Anders[facility] 00:00: n 00 ADHESIVE DRUG Active Low Rash 2016-0 MD [facility] 6-16 [facility] I[facility] 00:00: n 00 CODEINE DRUG Active Low Nausea 2016-0 MD [facility] 6-16 Anderso 00:00: n 00 ADHESIVE DRUG Active Low Rash 2016-0 MD [facility] 6-16 [facility] 00:00: n 00 CODEINE DRUG Active Low Nausea 2016-0 MD [facility] 6-16 Anderso 00:00: n 00 ADHESIVE DRUG Active Low Rash 2016-0 MD [facility] 6-16 Anders[facility] I[facility] 00:00: n 00 ADHESIVE DRUG Active Low Rash 2016-0 MD [facility] 6-16 [facility] 00:00: n 00 CODEINE DRUG Active Low Nausea 2016-0 MD [facility] 6-16 Anderso 00:00: n 00 ADHESIVE DRUG Active Low Rash 2016-0 MD [facility] 6-16 [facility] 00:00: n 00 CODEINE DRUG Active Low Nausea 2016-0 MD [facility] 6-16 Anders[facility] 00:00: n 00 ADHESIVE DRUG Active Low Rash 2016-0 MD [facility] 6-16 [facility] 00:00: n 00 CODEINE DRUG Active Low Nausea 2016-0 MD [facility] 6-16 Anders[facility] 00:00: n 00 ADHESIVE DRUG Active Low Rash 2016-0 MD [facility] 6-16 [facility] 00:00: n 00 CODEINE DRUG Active Low Nausea 2016-0 MD [facility] 6-16 Anderso 00:00: n 00 ADHESIVE DRUG Active Low Rash 2016-0 MD [facility] 6-16 [facility] 00:00: n 00 CODEINE DRUG Active Low Nausea 2016-0 MD [facility] 6-16 Anders[facility] 00:00: n 00 CODEINE DRUG Active Low Nausea 2016-0 MD [facility] 6-16 Anderso 00:00: n 00 ADHESIVE DRUG Active Low Rash 2016-0 MD [facility] 6-16 [facility] 00:00: n 00 CODEINE DRUG Active Low Nausea 2016-0 MD [facility] 6-16 Anderso 00:00: n 00 ADHESIVE DRUG Active Low Rash 2016-0 MD [facility] 6-16 [facility] I[facility] 00:00: n 00 CODEINE DRUG Active Low Nausea 2016-0 MD [facility] 6-16 Anderso 00:00: n 00 ADHESIVE DRUG Active Low Rash 2016-0 MD [facility] 6-16 [facility] I[facility] 00:00: n 00 CODEINE DRUG Active Low Nausea 2016-0 MD [facility] 6-16 Anderso 00:00: n 00 ADHESIVE DRUG Active Low Rash 2016-0 MD [facility] 6-16 [facility] 00:00: n 00 CODEINE DRUG Active Low Nausea 2016-0 MD [facility] 6-16 Anderso 00:00: n 00 ADHESIVE DRUG Active Low Rash 2016-0 MD [facility] 6-16 [facility] I[facility] 00:00: n 00 ADHESIVE DRUG Active Low Rash 2016-0 MD [facility] 6-16 [facility] 00:00: n 00 CODEINE DRUG Active Low Nausea 2016-0 MD [facility] 6-16 Anderso 00:00: n 00 CODEINE DRUG Active Low Nausea 2016-0 MD [facility] 6-16 Anderso 00:00: n 00 ADHESIVE DRUG Active Low Rash 2016-0 MD [facility] 6-16 [facility] 00:00: n 00 CODEINE DRUG Active Low Nausea 2016-0 MD [facility] 6-16 Anderso 00:00: n 00 ADHESIVE DRUG Active Low Rash 2016-0 MD [facility] 6-16 [facility] 00:00: n 00 CODEINE DRUG Active Low Nausea 2016-0 MD [facility] 6-16 Anderso 00:00: n 00 ADHESIVE DRUG Active Low Rash 2016-0 MD [facility] 6-16 [facility] I[facility] 00:00: n 00 CODEINE DRUG Active Low Nausea 2016-0 MD [facility] 6-16 Anders[facility] 00:00: n 00 ADHESIVE DRUG Active Low Rash 2016-0 MD [facility] 6-16 [facility] ICON[facility] 00:00: n 00 CODEINE DRUG Active Low Nausea 2016-0 MD [facility] 6-16 Anders[facility] 00:00: n 00 ADHESIVE DRUG Active Low Rash 2016-0 MD [facility] 6-16 [facility] ICON[facility] 00:00: n 00 CODEINE DRUG Active Low Nausea 2016-0 MD [facility] 6-16 Anderso 00:00: n 00 ADHESIVE DRUG Active Low Rash 2016-0 MD [facility] 6-16 [facility] ICON[facility] 00:00: n 00 CODEINE DRUG Active Low Nausea 2016-0 MD [facility] 6-16 Anderso 00:00: n 00 ADHESIVE DRUG Active Low Rash 2016-0 MD [facility] 6-16 [facility] ICON[facility] 00:00: n 00 CODEINE DRUG Active Low Nausea 2016-0 MD [facility] 6-16 Anderso 00:00: n 00 ADHESIVE DRUG Active Low Rash 2016-0 MD [facility] 6-16 [facility] I[facility] 00:00: n 00 CODEINE DRUG Active Low Nausea 2016-0 MD [facility] 6-16 Anderso 00:00: n 00 ADHESIVE DRUG Active Low Rash 2016-0 MD [facility] 6-16 [facility] I[facility] 00:00: n 00 CODEINE DRUG Active Low Nausea 2016-0 MD [facility] 6-16 Anderso 00:00: n 00 ADHESIVE DRUG Active Low Rash 2016-0 MD [facility] 6-16 [facility] ICON[facility] 00:00: n 00 CODEINE DRUG Active Low Nausea 2016-0 MD [facility] 6-16 Anders[facility] 00:00: n 00 ADHESIVE DRUG Active Low Rash 2016-0 MD [facility] 6-16 [facility] I[facility] 00:00: n 00 CODEINE DRUG Active Low Nausea 2016-0 MD [facility] 6-16 Anderso 00:00: n 00 ADHESIVE DRUG Active Low Rash 2016-0 MD [facility] 6-16 [facility] ICON[facility] 00:00: n 00 CODEINE DRUG Active Low Nausea 2016-0 MD [facility] 6-16 Anderso 00:00: n 00 ADHESIVE DRUG Active Low Rash 2016-0 MD [facility] 6-16 [facility] ICON[facility] 00:00: n 00 CODEINE DRUG Active Low Nausea 2016-0 MD [facility] 6-16 Anderso 00:00: n 00 ADHESIVE DRUG Active Low Rash 2016-0 MD [facility] 6-16 [facility] ICON[facility] 00:00: n 00 CODEINE DRUG Active Low Nausea 2016-0 MD [facility] 6-16 Anderso 00:00: n 00 ADHESIVE DRUG Active Low Rash 2016-0 MD [facility] 6-16 [facility] 00:00: n 00 CODEINE DRUG Active Low Nausea 2016-0 MD [facility] 6-16 Anderso 00:00: n 00 ADHESIVE DRUG Active Low Rash 2016-0 MD [facility] 6-16 [facility] I[facility] 00:00: n 00 CODEINE DRUG Active Low Nausea 2016-0 MD [facility] 6-16 Anderso 00:00: n 00 ADHESIVE DRUG Active Low Rash 2016-0 MD [facility] 6-16 [facility] ICON[facility] 00:00: n 00 CODEINE DRUG Active Low Nausea 2016-0 MD [facility] 6-16 Anders[facility] 00:00: n 00 ADHESIVE DRUG Active Low Rash 2016-0 MD [facility] 6-16 [facility] I[facility] 00:00: n 00 CODEINE DRUG Active Low Nausea 2016-0 MD [facility] 6-16 Anderso 00:00: n 00 ADHESIVE DRUG Active Low Rash 2016-0 MD [facility] 6-16 [facility] 00:00: n 00 CODEINE DRUG Active Low Nausea 2016-0 MD [facility] 6-16 Anderso 00:00: n 00 ADHESIVE DRUG Active Low Rash 2016-0 MD [facility] 6-16 [facility] 00:00: n 00 CODEINE DRUG Active Low Nausea 2016-0 MD [facility] 6-16 Anderso 00:00: n 00 ADHESIVE DRUG Active Low Rash 2016-0 MD [facility] 6-16 [facility] 00:00: n 00 CODEINE DRUG Active Low Nausea 2016-0 MD [facility] 6-16 Anderso 00:00: n 00 ADHESIVE DRUG Active Low Rash 2016-0 MD [facility] 6-16 [facility] 00:00: n 00 CODEINE DRUG Active Low Nausea 2016-0 MD [facility] 6-16 Anderso 00:00: n 00 ADHESIVE DRUG Active Low Rash 2016-0 MD [facility] 6-16 [facility] I[facility] 00:00: n 00 CODEINE DRUG Active Low Nausea 2016-0 MD [facility] 6-16 Anderso 00:00: n 00 ADHESIVE DRUG Active Low Rash 2016-0 MD [facility] 6-16 [facility] I[facility] 00:00: n 00 CODEINE DRUG Active Low Nausea 2016-0 MD [facility] 6-16 Anderso 00:00: n 00 ADHESIVE DRUG Active Low Rash 2016-0 MD [facility] 6-16 [facility] I[facility] 00:00: n 00 CODEINE DRUG Active Low Nausea 2016-0 MD [facility] 6-16 Anderso 00:00: n 00 ADHESIVE DRUG Active Low Rash 2016-0 MD [facility] 6-16 [facility] 00:00: n 00 CODEINE DRUG Active Low Nausea 2016-0 MD [facility] 6-16 Anderso 00:00: n 00 ADHESIVE DRUG Active Low Rash 2016-0 MD [facility] 6-16 [facility] 00:00: n 00 CODEINE DRUG Active Low Nausea 2016-0 MD [facility] 6-16 Anderso 00:00: n 00 ADHESIVE DRUG Active Low Rash 2016-0 MD [facility] 6-16 [facility] 00:00: n 00 CODEINE DRUG Active Low Nausea 2016-0 MD [facility] 6-16 Anderso 00:00: n 00 ADHESIVE DRUG Active Low Rash 2016-0 MD [facility] 6-16 [facility] 00:00: n 00 CODEINE DRUG Active Low Nausea 2016-0 MD [facility] 6-16 Anderso 00:00: n 00 ADHESIVE DRUG Active Low Rash 2016-0 MD [facility] 6-16 [facility]CON[facility] 00:00: n 00 CODEINE DRUG Active Low Nausea 2016-0 MD [facility] 6-16 Anderso 00:00: n 00 ADHESIVE DRUG Active Low Rash 2016-0 MD [facility] 6-16 [facility] 00:00: n 00 CODEINE DRUG Active Low Nausea 2016-0 MD [facility] 6-16 Anderso 00:00: n 00 ADHESIVE DRUG Active Low Rash 2016-0 MD [facility] 6-16 [facility] 00:00: n 00 CODEINE DRUG Active Low Nausea 2016-0 MD [facility] 6-16 Anderso 00:00: n 00 ADHESIVE DRUG Active Low Rash 2016-0 MD [facility] 6-16 [facility] 00:00: n 00 CODEINE DRUG Active Low Nausea 2016-0 MD [facility] 6-16 Anderso 00:00: n 00 ADHESIVE DRUG Active Low Rash 2016-0 MD [facility] 6-16 [facility] I[facility] 00:00: n 00 CODEINE DRUG Active Low Nausea 2016-0 MD [facility] 6-16 Anderso 00:00: n 00 ADHESIVE DRUG Active Low Rash 2016-0 MD [facility] 6-16 [facility] ICON[facility] 00:00: n 00 CODEINE DRUG Active Low Nausea 2016-0 MD [facility] 6-16 Anderso 00:00: n 00 ADHESIVE DRUG Active Low Rash 2016-0 MD [facility] 6-16 [facility] ICONES 00:00: n 00 CODEINE DRUG Active Low Nausea 2016-0 MD [facility] 6-16 Anderso 00:00: n 00 ADHESIVE DRUG Active Low Rash 2016-0 MD [facility] 6-16 [facility] ICONES 00:00: n 00 CODEINE DRUG Active Low Nausea 2016-0 MD [facility] 6-16 Anderso 00:00: n 00 ADHESIVE DRUG Active Low Rash 2016-0 MD [facility] 6-16 [facility] ICON[facility] 00:00: n 00 CODEINE DRUG Active Low Nausea 2016-0 MD [facility] 6-16 Anderso 00:00: n 00 ADHESIVE DRUG Active Low Rash 2016-0 MD [facility] 6-16 [facility] ICON[facility] 00:00: n 00 CODEINE DRUG Active Low Nausea 2016-0 MD [facility] 6-16 Anderso 00:00: n 00 ADHESIVE DRUG Active Low Rash 2016-0 MD [facility] 6-16 [facility] ICON[facility] 00:00: n 00 CODEINE DRUG Active Low Nausea 2016-0 MD [facility] 6-16 Anderso 00:00: n 00 ADHESIVE DRUG Active Low Rash 2016-0 MD [facility] 6-16 [facility] ICON[facility] 00:00: n 00 CODEINE DRUG Active Low Nausea 2016-0 MD [facility] 6-16 Anderso 00:00: n 00 ADHESIVE DRUG Active Low Rash 2016-0 MD [facility] 6-16 [facility] ICONES 00:00: n 00 CODEINE DRUG Active Low Nausea 2016-0 MD [facility] 6-16 Anderso 00:00: n 00 ADHESIVE DRUG Active Low Rash 2016-0 MD [facility] 6-16 [facility] I[facility] 00:00: n 00 CODEINE DRUG Active Low Nausea 2016-0 MD [facility] 6-16 Anderso 00:00: n 00 ADHESIVE DRUG Active Low Rash 2016-0 MD [facility] 6-16 [facility] ICONES 00:00: n 00 CODEINE DRUG Active Low Nausea 2016-0 MD [facility] 6-16 Anderso 00:00: n 00 ADHESIVE DRUG Active Low Rash 2016-0 MD [facility] 6-16 [facility] ICON[facility] 00:00: n 00 CODEINE DRUG Active Low Nausea 2016-0 MD [facility] 6-16 Anderso 00:00: n 00 ADHESIVE DRUG Active Low Rash 2016-0 MD [facility] 6-16 [facility] ICON[facility] 00:00: n 00 CODEINE DRUG Active Low Nausea 2016-0 MD [facility] 6-16 Anderso 00:00: n 00 ADHESIVE DRUG Active Low Rash 2016-0 MD [facility] 6-16 [facility] ICON[facility] 00:00: n 00 CODEINE DRUG Active Low Nausea 2016-0 MD [facility] 6-16 Anderso 00:00: n 00 ADHESIVE DRUG Active Low Rash 2016-0 MD [facility] 6-16 [facility] ICONES 00:00: n 00 CODEINE DRUG Active Low Nausea 2016-0 MD [facility] 6-16 Anderso 00:00: n 00 ADHESIVE DRUG Active Low Rash 2016-0 MD [facility] 6-16 [facility] ICON[facility] 00:00: n 00 CODEINE DRUG Active Low Nausea 2016-0 MD [facility] 6-16 Anderso 00:00: n 00 ADHESIVE DRUG Active Low Rash 2016-0 MD [facility] 6-16 [facility] ICON[facility] 00:00: n 00 CODEINE DRUG Active Low Nausea 2016-0 MD [facility] 6-16 Anderso 00:00: n 00 ADHESIVE DRUG Active Low Rash 2016-0 MD [facility] 6-16 [facility] ICONES 00:00: n 00 CODEINE DRUG Active Low Nausea 2016-0 MD [facility] 6-16 Anderso 00:00: n 00 ADHESIVE DRUG Active Low Rash 2016-0 MD [facility] 6-16 [facility] ICON[facility] 00:00: n 00 CODEINE DRUG Active Low Nausea 2016-0 MD [facility] 6-16 Anderso 00:00: n 00 ADHESIVE DRUG Active Low Rash 2016-0 MD [facility] 6-16 [facility] ICON[facility] 00:00: n 00 CODEINE DRUG Active Low Nausea 2016-0 MD [facility] 6-16 Anderso 00:00: n 00 ADHESIVE DRUG Active Low Rash 2016-0 MD [facility] 6-16 Anderso ICONES 00:00: n 00 CODEINE DRUG Active Low Nausea 2016-0 MD [facility]I 6-16 Anderso 00:00: n 00 ADHESIVE DRUG Active Low Rash 2016-0 MD [facility] 6-16 [facility] ICONES 00:00: n 00 CODEINE DRUG Active Low Nausea 2016-0 MD [facility]I 6-16 Anderso 00:00: n 00 ADHESIVE DRUG Active Low Rash 2016-0 MD [facility] 6-16 [facility] ICON[facility] 00:00: n 00 CODEINE DRUG Active Low Nausea 2016-0 MD [facility]I 6-16 Anderso 00:00: n 00 ADHESIVE DRUG Active Low Rash 2016-0 MD [facility] 6-16 [facility] ICON[facility] 00:00: n 00 CODEINE DRUG Active Low Nausea 2016-0 MD [facility] 6-16 Anderso 00:00: n 00 ADHESIVE DRUG Active Low Rash 2016-0 MD [facility] 6-16 [facility] ICON[facility] 00:00: n 00 CODEINE DRUG Active Low Nausea 2016-0 MD IN[facility]I 6-16 Anderso 00:00: n 00 ADHESIVE DRUG Active Low Rash 2016-0 MD [facility] 6-16 [facility] ICON[facility] 00:00: n 00 CODEINE DRUG Active Low Nausea 2016-0 MD IN[facility]I 6-16 Anderso 00:00: n 00 ADHESIVE DRUG Active Low Rash 2016-0 MD [facility] 6-16 Anderso ICONES 00:00: n 00 CODEINE DRUG Active Low Nausea 2016-0 MD IN[facility]I 6-16 Anderso 00:00: n 00 ADHESIVE DRUG Active Low Rash 2016-0 MD TAPE-BRENDAN 6-16 Anderso ICONES 00:00: n 00 CODEINE DRUG Active Low Nausea 2016-0 MD INGREDI 6-16 Anderso 00:00: n 00 ADHESIVE DRUG Active Low Rash 2016-0 MD TAPE-BRENDAN 6-16 Anderso ICONES 00:00: n 00 CODEINE DRUG Active Low Nausea 2016-0 MD INGREDI 6-16 Anderso 00:00: n 00 ADHESIVE DRUG Active Low Rash 2016-0 MD TAPE-BRENDAN 6-16 Anderso ICONES 00:00: n 00 CODEINE DRUG Active Low Nausea 2016-0 MD INGREDI 6-16 Anderso 00:00: n 00 ADHESIVE DRUG Active Low Rash 2016-0 MD TAPE-BRENDAN 6-16 Anderso ICONES 00:00: n 00 CODEINE DRUG Active Low Nausea 2016-0 MD INGREDI 6-16 Anderso 00:00: n 00 ADHESIVE DRUG Active Low Rash 2016-0 MD TAPE-BRENDAN 6-16 Anderso ICONES 00:00: n 00 CODEINE DRUG Active Low Nausea 2016-0 MD INGREDI 6-16 Anderso 00:00: n 00 ADHESIVE DRUG Active Low Rash 2016-0 MD TAPE-BRENDAN 6-16 Anderso ICONES 00:00: n 00 CODEINE DRUG Active Low Nausea 2016-0 MD INGREDI 6-16 Anderso 00:00: n 00 ADHESIVE DRUG Active Low Rash 2016-0 MD TAPE-BRENDAN 6-16 Anderso ICONES 00:00: n 00 CODEINE DRUG Active Low Nausea 2016-0 MD INGREDI 6-16 Anderso 00:00: n 00 ADHESIVE DRUG Active Low Rash 2016-0 MD TAPE-BRENDAN 6-16 Anderso ICONES 00:00: n 00 CODEINE DRUG Active Low Nausea 2016-0 MD INGREDI 6-16 Anderso 00:00: n 00 ADHESIVE DRUG Active Low Rash 2016-0 MD TAPE-BRENDAN 6-16 Anderso ICONES 00:00: n 00 CODEINE DRUG Active Low Nausea 2016-0 MD INGREDI 6-16 Anderso 00:00: n 00 ADHESIVE DRUG Active Low Rash 2016-0 MD TAPE-BRENDAN 6-16 Anderso ICONES 00:00: n 00 CODEINE DRUG Active Low Nausea 2016-0 MD INGREDI 6-16 Anderso 00:00: n 00 ADHESIVE DRUG Active Low Rash 2016-0 MD TAPE-BRENDAN 6-16 Anderso ICONES 00:00: n 00 CODEINE DRUG Active Low Nausea 2016-0 MD INGREDI 6-16 Anderso 00:00: n 00 ADHESIVE DRUG Active Low Rash 2016-0 MD TAPE-BRENDAN 6-16 Anderso ICONES 00:00: n 00 CODEINE DRUG Active Low Nausea 2016-0 MD INGREDI 6-16 Anderso 00:00: n 00 ADHESIVE DRUG Active Low Rash 2016-0 MD TAPE-BRENDAN 6-16 Anderso ICONES 00:00: n 00 CODEINE DRUG Active Low Nausea 2016-0 MD INGREDI 6-16 Anderso 00:00: n 00 ADHESIVE DRUG Active Low Rash 2016-0 MD TAPE-BRENDAN 6-16 Anderso ICONES 00:00: n 00 CODEINE DRUG Active Low Nausea 2016-0 MD INGREDI 6-16 Anderso 00:00: n 00 ADHESIVE DRUG Active Low Rash 2016-0 MD TAPE-BRENDAN 6-16 Anderso ICONES 00:00: n 00 CODEINE DRUG Active Low Nausea 2016-0 MD INGREDI 6-16 Anderso 00:00: n 00 ADHESIVE DRUG Active Low Rash 2016-0 MD TAPE-BRENDAN 6-16 Anderso ICONES 00:00: n 00 CODEINE DRUG Active Low Nausea 2016-0 MD INGREDI 6-16 Anderso 00:00: n 00 ADHESIVE DRUG Active Low Rash 2016-0 MD TAPE-BRENDAN 6-16 Anderso ICONES 00:00: n 00 CODEINE DRUG Active Low Nausea 2016-0 MD INGREDI 6-16 Anderso 00:00: n 00 ADHESIVE DRUG Active Low Rash 2016-0 MD TAPE-BRENDAN 6-16 Anderso ICONES 00:00: n 00 CODEINE DRUG Active Low Nausea 2016-0 MD INGREDI 6-16 Anderso 00:00: n 00 ADHESIVE DRUG Active Low Rash 2016-0 MD TAPE-BRENDAN 6-16 Anderso ICONES 00:00: n 00 CODEINE DRUG Active Low Nausea 2016-0 MD INGREDI 6-16 Anderso 00:00: n 00 ADHESIVE DRUG Active Low Rash 2016-0 MD TAPE-BRENDAN 6-16 Anderso ICONES 00:00: n 00 CODEINE DRUG Active Low Nausea 2016-0 MD INGREDI 6-16 Anderso 00:00: n 00 ADHESIVE DRUG Active Low Rash 2016-0 MD TAPE-BRENDAN 6-16 Anderso ICONES 00:00: n 00 CODEINE DRUG Active Low Nausea 2016-0 MD INGREDI 6-16 Anderso 00:00: n 00 ADHESIVE DRUG Active Low Rash 2016-0 MD TAPE-BRENDAN 6-16 Anderso ICONES 00:00: n 00 CODEINE DRUG Active Low Nausea 2016-0 MD INGREDI 6-16 Anderso 00:00: n 00 ADHESIVE DRUG Active Low Rash 2016-0 MD TAPE-BRENDAN 6-16 Anderso ICONES 00:00: n 00 CODEINE DRUG Active Low Nausea 2016-0 MD INGREDI 6-16 Anderso 00:00: n 00 ADHESIVE DRUG Active Low Rash 2016-0 MD TAPE-BRENDAN 6-16 Anderso ICONES 00:00: n 00 CODEINE DRUG Active Low Nausea 2016-0 MD INGREDI 6-16 Anderso 00:00: n 00 ADHESIVE DRUG Active Low Rash 2016-0 MD TAPE-BRENDAN 6-16 Anderso ICONES 00:00: n 00 CODEINE DRUG Active Low Nausea 2016-0 MD INGREDI 6-16 Anderso 00:00: n 00 ADHESIVE DRUG Active Low Rash 2016-0 MD TAPE-BRENDAN 6-16 Anderso ICONES 00:00: n 00 CODEINE DRUG Active Low Nausea 2016-0 MD INGREDI 6-16 Anderso 00:00: n 00 ADHESIVE DRUG Active Low Rash 2016-0 MD TAPE-BRENDAN 6-16 Anderso ICONES 00:00: n 00 CODEINE DRUG Active Low Nausea 2016-0 MD INGREDI 6-16 Anderso 00:00: n 00 ADHESIVE DRUG Active Low Rash 2016-0 MD TAPE-BRENDAN 6-16 Anderso ICONES 00:00: n 00 CODEINE DRUG Active Low Nausea 2016-0 MD INGREDI 6-16 Anderso 00:00: n 00 ADHESIVE DRUG Active Low Rash 2016-0 MD TAPE-BRENDAN 6-16 Anderso ICONES 00:00: n 00 CODEINE DRUG Active Low Nausea 2016-0 MD INGREDI 6-16 Anderso 00:00: n 00 ADHESIVE DRUG Active Low Rash 2016-0 MD TAPE-BRENDAN 6-16 Anderso ICONES 00:00: n 00 CODEINE DRUG Active Low Nausea 2016-0 MD INGREDI 6-16 Anderso 00:00: n 00 ADHESIVE DRUG Active Low Rash 2016-0 MD TAPE-BRENDAN 6-16 Anderso ICONES 00:00: n 00 CODEINE DRUG Active Low Nausea 2016-0 MD INGREDI 6-16 Anderso 00:00: n 00 ADHESIVE DRUG Active Low Rash 2016-0 MD TAPE-BRENDAN 6-16 Anderso ICONES 00:00: n 00 CODEINE DRUG Active Low Nausea 2016-0 MD INGREDI 6-16 Anderso 00:00: n 00 ADHESIVE DRUG Active Low Rash 2016-0 MD TAPE-BRENDAN 6-16 Anderso ICONES 00:00: n 00 CODEINE DRUG Active Low Nausea 2016-0 MD INGREDI 6-16 Anderso 00:00: n 00 ADHESIVE DRUG Active Low Rash 2016-0 MD TAPE-BRENDAN 6-16 Anderso ICONES 00:00: n 00 CODEINE DRUG Active Low Nausea 2016-0 MD INGREDI 6-16 Anderso 00:00: n 00 ADHESIVE DRUG Active Low Rash 2016-0 MD TAPE-BRENDAN 6-16 Anderso ICONES 00:00: n 00 CODEINE DRUG Active Low Nausea 2016-0 MD INGREDI 6-16 Anderso 00:00: n 00 ADHESIVE DRUG Active Low Rash 2016-0 MD TAPE-BRENDAN 6-16 Anderso ICONES 00:00: n 00 CODEINE DRUG Active Low Nausea 2016-0 MD INGREDI 6-16 Anderso 00:00: n 00 ADHESIVE DRUG Active Low Rash 2016-0 MD TAPE-BRENDAN 6-16 Anderso ICONES 00:00: n 00 CODEINE DRUG Active Low Nausea 2016-0 MD INGREDI 6-16 Anderso 00:00: n 00 ADHESIVE DRUG Active Low Rash 2016-0 MD TAPE-BRENDAN 6-16 Anderso ICONES 00:00: n 00 CODEINE DRUG Active Low Nausea 2016-0 MD INGREDI 6-16 Anderso 00:00: n 00 ADHESIVE DRUG Active Low Rash 2016-0 MD TAPE-BRENDAN 6-16 Anderso ICONES 00:00: n 00 CODEINE DRUG Active Low Nausea 2016-0 MD INGREDI 6-16 Anderso 00:00: n 00 ADHESIVE DRUG Active Low Rash 2016-0 MD TAPE-BRENDAN 6-16 Anderso ICONES 00:00: n 00 CODEINE DRUG Active Low Nausea 2016-0 MD INGREDI 6-16 Anderso 00:00: n 00 ADHESIVE DRUG Active Low Rash 2016-0 MD TAPE-BRENDAN 6-16 Anderso ICONES 00:00: n 00 CODEINE DRUG Active Low Nausea 2016-0 MD INGREDI 6-16 Anderso 00:00: n 00 ADHESIVE DRUG Active Low Rash 2016-0 MD TAPE-BRENDAN 6-16 Anderso ICONES 00:00: n 00 CODEINE DRUG Active Low Nausea 2016-0 MD INGREDI 6-16 Anderso 00:00: n 00 ADHESIVE DRUG Active Low Rash 2016-0 MD TAPE-BRENDAN 6-16 Anderso ICONES 00:00: n 00 CODEINE DRUG Active Low Nausea 2016-0 MD INGREDI 6-16 Anderso 00:00: n 00 ADHESIVE DRUG Active Low Rash 2016-0 MD TAPE-BRENDAN 6-16 Anderso ICONES 00:00: n 00 CODEINE DRUG Active Low Nausea 2016-0 MD INGREDI 6-16 Anderso 00:00: n 00 ADHESIVE DRUG Active Low Rash 2016-0 MD TAPE-BRENDAN 6-16 Anderso ICONES 00:00: n 00 CODEINE DRUG Active Low Nausea 2016-0 MD INGREDI 6-16 Anderso 00:00: n 00 ADHESIVE DRUG Active Low Rash 2016-0 MD TAPE-BRENDAN 6-16 Anderso ICONES 00:00: n 00 CODEINE DRUG Active Low Nausea 2016-0 MD INGREDI 6-16 Anderso 00:00: n 00 ADHESIVE DRUG Active Low Rash 2016-0 MD TAPE-BRENDAN 6-16 Anderso ICONES 00:00: n 00 CODEINE DRUG Active Low Nausea 2016-0 MD INGREDI 6-16 Anderso 00:00: n 00 ADHESIVE DRUG Active Low Rash 2016-0 MD TAPE-BRENDAN 6-16 Anderso ICONES 00:00: n 00 CODEINE DRUG Active Low Nausea 2016-0 MD INGREDI 6-16 Anderso 00:00: n 00 ADHESIVE DRUG Active Low Rash 2016-0 MD TAPE-BRENDAN 6-16 Anderso ICONES 00:00: n 00 CODEINE DRUG Active Low Nausea 2016-0 MD INGREDI 6-16 Anderso 00:00: n 00 ADHESIVE DRUG Active Low Rash 2016-0 MD TAPE-BRENDAN 6-16 Anderso ICONES 00:00: n 00 CODEINE DRUG Active Low Nausea 2016-0 MD INGREDI 6-16 Anderso 00:00: n 00 ADHESIVE DRUG Active Low Rash 2016-0 MD TAPE-BRENDAN 6-16 Anderso ICONES 00:00: n 00 CODEINE DRUG Active Low Nausea 2016-0 MD INGREDI 6-16 Anderso 00:00: n 00 ADHESIVE DRUG Active Low Rash 2016-0 MD TAPE-BRENDAN 6-16 Anderso ICONES 00:00: n 00 CODEINE DRUG Active Low Nausea 2016-0 MD INGREDI 6-16 Anderso 00:00: n 00 ADHESIVE DRUG Active Low Rash 2016-0 MD TAPE-BRENDAN 6-16 Anderso ICONES 00:00: n 00 CODEINE DRUG Active Low Nausea 2016-0 MD INGREDI 6-16 Anderso 00:00: n 00 ADHESIVE DRUG Active Low Rash 2016-0 MD TAPE-BRENDAN 6-16 Anderso ICONES 00:00: n 00 CODEINE DRUG Active Low Nausea 2016-0 MD INGREDI 6-16 Anderso 00:00: n 00 ADHESIVE DRUG Active Low Rash 2016-0 MD TAPE-BRENDAN 6-16 Anderso ICONES 00:00: n 00 CODEINE DRUG Active Low Nausea 2016-0 MD INGREDI 6-16 Anderso 00:00: n 00 ADHESIVE DRUG Active Low Rash 2016-0 MD TAPE-BRENDAN 6-16 Anderso ICONES 00:00: n 00 CODEINE DRUG Active Low Nausea 2016-0 MD INGREDI 6-16 Anderso 00:00: n 00 ADHESIVE DRUG Active Low Rash 2016-0 MD TAPE-BRENDAN 6-16 Anderso ICONES 00:00: n 00 CODEINE DRUG Active Low Nausea 2016-0 MD INGREDI 6-16 Anderso 00:00: n 00 ADHESIVE DRUG Active Low Rash 2016-0 MD TAPE-BRENDAN 6-16 Anderso ICONES 00:00: n 00 CODEINE DRUG Active Low Nausea 2016-0 MD INGREDI 6-16 Anderso 00:00: n 00 ADHESIVE DRUG Active Low Rash 2016-0 MD TAPE-BRENDAN 6-16 Anderso ICONES 00:00: n 00 CODEINE DRUG Active Low Nausea 2016-0 MD INGREDI 6-16 Anderso 00:00: n 00 ADHESIVE DRUG Active Low Rash 2016-0 MD TAPE-BRENDAN 6-16 Anderso ICONES 00:00: n 00 CODEINE DRUG Active Low Nausea 2016-0 MD INGREDI 6-16 Anderso 00:00: n 00 ADHESIVE DRUG Active Low Rash 2016-0 MD TAPE-BRENDAN 6-16 Anderso ICONES 00:00: n 00 CODEINE DRUG Active Low Nausea 2016-0 MD INGREDI 6-16 Anderso 00:00: n 00 ADHESIVE DRUG Active Low Rash 2016-0 MD TAPE-BRENDAN 6-16 Anderso ICONES 00:00: n 00 CODEINE DRUG Active Low Nausea 2016-0 MD INGREDI 6-16 Anderso 00:00: n 00 ADHESIVE DRUG Active Low Rash 2016-0 MD TAPE-BRENDAN 6-16 Anderso ICONES 00:00: n 00 CODEINE DRUG Active Low Nausea 2016-0 MD INGREDI 6-16 Anderso 00:00: n 00 ADHESIVE DRUG Active Low Rash 2016-0 MD TAPE-BRENDAN 6-16 Anderso ICONES 00:00: n 00 CODEINE DRUG Active Low Nausea 2016-0 MD INGREDI 6-16 Anderso 00:00: n 00 ADHESIVE DRUG Active Low Rash 2016-0 MD TAPE-BRENDAN 6-16 Anderso ICONES 00:00: n 00 CODEINE DRUG Active Low Nausea 2016-0 MD INGREDI 6-16 Anderso 00:00: n 00 ADHESIVE DRUG Active Low Rash 2016-0 MD TAPE-BRENDAN 6-16 Anderso ICONES 00:00: n 00 CODEINE DRUG Active Low Nausea 2016-0 MD INGREDI 6-16 Anderso 00:00: n 00 ADHESIVE DRUG Active Low Rash 2016-0 MD TAPE-BRENDAN 6-16 Anderso ICONES 00:00: n 00 CODEINE DRUG Active Low Nausea 2016-0 MD INGREDI 6-16 Anderso 00:00: n 00 ADHESIVE DRUG Active Low Rash 2016-0 MD TAPE-BRENDAN 6-16 Anderso ICONES 00:00: n 00 CODEINE DRUG Active Low Nausea 2016-0 MD INGREDI 6-16 Anderso 00:00: n 00 ADHESIVE DRUG Active Low Rash 2016-0 MD TAPE-BRENDAN 6-16 Anderso ICONES 00:00: n 00 CODEINE DRUG Active Low Nausea 2016-0 MD INGREDI 6-16 Anderso 00:00: n 00 ADHESIVE DRUG Active Low Rash 2016-0 MD TAPE-BRENDAN 6-16 Anderso ICONES 00:00: n 00 CODEINE DRUG Active Low Nausea 2016-0 MD INGREDI 6-16 Anderso 00:00: n 00 ADHESIVE DRUG Active Low Rash 2016-0 MD TAPE-BRENDAN 6-16 Anderso ICONES 00:00: n 00 ADHESIVE DRUG Active Low Rash 2016-0 MD TAPE-BRENDAN 6-16 Anderso ICONES 00:00: n 00 CODEINE DRUG Active Low Nausea 2016-0 MD INGREDI 6-16 Anderso 00:00: n 00 ADHESIVE DRUG Active Low Rash 2016-0 MD TAPE-BRENDAN 6-16 Anderso ICONES 00:00: n 00 CODEINE DRUG Active Low Nausea 2016-0 MD INGREDI 6-16 Anderso 00:00: n 00 ADHESIVE DRUG Active Low Rash 2016-0 MD TAPE-BRENDAN 6-16 Anderso ICONES 00:00: n 00 CODEINE DRUG Active Low Nausea 2016-0 MD INGREDI 6-16 Anderso 00:00: n 00 ADHESIVE DRUG Active Low Rash 2016-0 MD TAPE-BRENDAN 6-16 Anderso ICONES 00:00: n 00 CODEINE DRUG Active Low Nausea 2016-0 MD INGREDI 6-16 Anderso 00:00: n 00 ADHESIVE DRUG Active Low Rash 2016-0 MD TAPE-BRENDAN 6-16 Anderso ICONES 00:00: n 00 CODEINE DRUG Active Low Nausea 2016-0 MD INGREDI 6-16 Anderso 00:00: n 00 ADHESIVE DRUG Active Low Rash 2016-0 MD TAPE-BRENDAN 6-16 Anderso ICONES 00:00: n 00 CODEINE DRUG Active Low Nausea 2016-0 MD INGREDI 6-16 Anderso 00:00: n 00 CODEINE DRUG Active Low Nausea 2016-0 MD INGREDI 6-16 Anderso 00:00: n 00 ADHESIVE DRUG Active Low Rash 2016-0 MD TAPE-BRENDAN 6-16 Anderso ICONES 00:00: n 00 CODEINE DRUG Active Low Nausea 2016-0 MD INGREDI 6-16 Anderso 00:00: n 00 ADHESIVE DRUG Active Low Rash 2016-0 MD TAPE-BRENDAN 6-16 Anderso ICONES 00:00: n 00 CODEINE DRUG Active Low Nausea 2016-0 MD INGREDI 6-16 Anderso 00:00: n 00 ADHESIVE DRUG Active Low Rash 2016-0 MD TAPE-BRENDAN 6-16 Anderso ICONES 00:00: n 00 CODEINE DRUG Active Low Nausea 2016-0 MD INGREDI 6-16 Anderso 00:00: n 00 ADHESIVE DRUG Active Low Rash 2016-0 MD TAPE-BRENDAN 6-16 Anderso ICONES 00:00: n 00 CODEINE DRUG Active Low Nausea 2016-0 MD INGREDI 6-16 Anderso 00:00: n 00 ADHESIVE DRUG Active Low Rash 2016-0 MD TAPE-BRENDAN 6-16 Anderso ICONES 00:00: n 00 CODEINE DRUG Active Low Nausea 2016-0 MD INGREDI 6-16 Anderso 00:00: n 00 ADHESIVE DRUG Active Low Rash 2016-0 MD TAPE-BRENDAN 6-16 Anderso ICONES 00:00: n 00 CODEINE DRUG Active Low Nausea 2016-0 MD INGREDI 6-16 Anderso 00:00: n 00 ADHESIVE DRUG Active Low Rash 2016-0 MD TAPE-BRENDAN 6-16 Anderso ICONES 00:00: n 00 CODEINE DRUG Active Low Nausea 2016-0 MD INGREDI 6-16 Anderso 00:00: n 00 ADHESIVE DRUG Active Low Rash 2016-0 MD TAPE-BRENDAN 6-16 Anderso ICONES 00:00: n 00 CODEINE DRUG Active Low Nausea 2016-0 MD INGREDI 6-16 Anderso 00:00: n 00 ADHESIVE DRUG Active Low Rash 2016-0 MD TAPE-BRENDAN 6-16 Anderso ICONES 00:00: n 00 CODEINE DRUG Active Low Nausea 2016-0 MD INGREDI 6-16 Anderso 00:00: n 00 ADHESIVE DRUG Active Low Rash 2016-0 MD TAPE-BRENDAN 6-16 Anderso ICONES 00:00: n 00 ADHESIVE DRUG Active Low Rash 2016-0 MD TAPE-BRENDAN 6-16 Anderso ICONES 00:00: n 00 CODEINE DRUG Active Low Nausea 2016-0 MD INGREDI 6-16 Anderso 00:00: n 00 ADHESIVE DRUG Active Low Rash 2016-0 MD TAPE-BRENDAN 6-16 Anderso ICONES 00:00: n 00 CODEINE DRUG Active Low Nausea 2016-0 MD INGREDI 6-16 Anderso 00:00: n 00 ADHESIVE DRUG Active Low Rash 2016-0 MD TAPE-BRENDAN 6-16 Anderso ICONES 00:00: n 00 CODEINE DRUG Active Low Nausea 2016-0 MD INGREDI 6-16 Anderso 00:00: n 00 ADHESIVE DRUG Active Low Rash 2016-0 MD TAPE-BRENDAN 6-16 Anderso ICONES 00:00: n 00 CODEINE DRUG Active Low Nausea 2016-0 MD INGREDI 6-16 Anderso 00:00: n 00 ADHESIVE DRUG Active Low Rash 2016-0 MD TAPE-BRENDAN 6-16 Anderso ICONES 00:00: n 00 CODEINE DRUG Active Low Nausea 2016-0 MD INGREDI 6-16 Anderso 00:00: n 00 ADHESIVE DRUG Active Low Rash 2016-0 MD TAPE-BRENDAN 6-16 Anderso ICONES 00:00: n 00 CODEINE DRUG Active Low Nausea 2016-0 MD INGREDI 6-16 Anderso 00:00: n 00 CODEINE DRUG Active Low Nausea 2016-0 MD INGREDI 6-16 Anderso 00:00: n 00 ADHESIVE DRUG Active Low Rash 2016-0 MD TAPE-BRENDAN 6-16 Anderso ICONES 00:00: n 00 CODEINE DRUG Active Low Nausea 2016-0 MD INGREDI 6-16 Anderso 00:00: n 00 ADHESIVE DRUG Active Low Rash 2016-0 MD TAPE-BRENDAN 6-16 Anderso ICONES 00:00: n 00 CODEINE DRUG Active Low Nausea 2016-0 MD INGREDI 6-16 Anderso 00:00: n 00 ADHESIVE DRUG Active Low Rash 2016-0 MD TAPE-BRENDAN 6-16 Anderso ICONES 00:00: n 00 CODEINE DRUG Active Low Nausea 2016-0 MD INGREDI 6-16 Anderso 00:00: n 00 ADHESIVE DRUG Active Low Rash 2016-0 MD TAPE-BRENDAN 6-16 Anderso ICONES 00:00: n 00 CODEINE DRUG Active Low Nausea 2016-0 MD INGREDI 6-16 Anderso 00:00: n 00 ADHESIVE DRUG Active Low Rash 2016-0 MD TAPE-BRENDAN 6-16 Anderso ICONES 00:00: n 00 CODEINE DRUG Active Low Nausea 2016-0 MD INGREDI 6-16 Anderso 00:00: n 00 ADHESIVE DRUG Active Low Rash 2016-0 MD TAPE-BRENDAN 6-16 Anderso ICONES 00:00: n 00 Sulfa Propensi Active GI Methodi (Sulfona ty to Intolerance 8-03 st mide adverse 00:00: Hospita Antibiot reaction 00 l ics) s to drug Codeine Propensi Active GI Methodi ty to Intolerance 4-19 st adverse 00:00: Hospita reaction 00 l s to drug Povidone Propensi Active Rash Method i -Iodine ty to 4-19 st adverse 00:00: Hospita reaction 00 l s to drug Family History Family Member Diagnosis Comments Start Date Stop Date Source Natural mother Cancer [facility] Natural father Cancer [facility] Social History Social Habit Start Date Stop Date Quantity Comments Source Gender identity [facility] Sexual [facility] Tobacco use and 2018-01-26 2018-01-26 Smokeless [facility] exposure 00:00:00 00:00:00 tobacco non-user Hospital Alcohol intake 2018-01-26 2018-01-26 Current drinker [facility] 00:00:00 00:00:00 of alcohol Hospital (finding) History of Social 2018-01-26 2018-01-[address] function 00:00:00 00:00:00 Hospital Sex Assigned At [birth year] [facility] 00:00:00 00:00:00 Hospital Smoking Status Start Date Stop Date Source Never smoked tobacco [facility] ospital Medications Ordered Filled Start Stop Current Ordering Indication Dosage Frequency Signature Comments Components Source Medication Medication Date Date Medication? Clinician (SIG) Name Name atorren Yes 10mg Take 10 mg [facility] (LIPITOR) [address] 10 MG 00:00: Hospita tablet 00 l thyroid, Yes 60mg Take 60 mg [facility] pork, 8-[address] (ARMOUR 00:00: Hospita THYROID) 60 00 l mg tablet metFORMIN Yes 500mg Take 500 [facility] XR 8-[address] (GLUCOPHAGE 00:00: mouth. Hosp alan -XR) 500 mg 00 l 24 hr tablet LORAZepam Yes 2mg Take 2 mg [facility] (ATIVAN) 2 2-[address] MG tablet 00:00: Hospita 00 l ascorbate Yes 5000mg Take 5,000 [facility] calcium 814 4-[address] mg/gram 00:00: mouth. Hospita powder 00 l CHOLECALCIF Yes Take by Met juan [place], 4-[address] VITAMIN D3, 00:00: Hospit a ORAL 00 l VITAMIN B Yes Take by Ted di COMPLEX 4-[address] ORAL 00:00: Hospita 00 l Vital Signs Vital Name Observation Time Observation Value Comments Source WEIGHT 2019-12-27 00:00:00 90 kg Procedures This patient has no known procedures. Plan of Care Planned Activity Planned Date Details Comments Source Future Scheduled 2023-02-[address] [facility] Test 03:33:25 malignant neoplasm of colon (procedure) [code = 050347752] Future Scheduled 2023-02-[address] [facility] Test 03:33:25 malignant neoplasm of colon (procedure) [code = 065223332] Future Scheduled 2023-02-[address] [facility] Test 03:33:25 malignant neoplasm of colon (procedure) [code = 841723977] Future Scheduled 2023-02-19 COVID-19 VACCINE (#1) [facility] Test 03:33:25 [code = COVID-19 VACCINE (#1)] Future Scheduled 2023-02-[address] [facility] Test 03:33:25 SCREENING [code = BREAST CANCER SCREENING] Future Scheduled 2023-02-[address] [facility] Test 03:33:25 malignant neoplasm of colon (procedure) [code = 114728540] Future Scheduled 2023-02-[address] [facility] Test 03:33:25 malignant neoplasm of colon (procedure) [code = 727383818] Future Scheduled 2023-02-19 SHINGLES VACCINES (1 Met [facility] Test 03:33:25 of 2) [code = SHINGLES VACCINES (1 of 2)] Future Scheduled 2023-02-19 65+ [facility] 03:33:25 VACCINE (1 - PCV) [code = 65+ PNEUMOCOCCAL VACCINE (1 - PCV)] Future Scheduled 2023-02-19 INFLUENZA VACCINE (#1) [facility] Test 03:33:25 [code = INFLUENZA VACCINE (#1)] Encounters Start End Encounter Admission Attending Care Care Encounter Source Date/Time Date/Time Type Type Clinicians Facility Department ID 2022-08-19 Outpatient SYSTEM, MDA MDA [id number] MD 15:44:27 PROVIDER Rell o n 2022-05-11 Outpatient SYSTEM, MDA MDA [id number] MD 14:17:31 PROVIDER Rell o n 2021-05-07 Outpatient SYSTEM, MDA MDA [id number] MD 12:15:38 PROVIDER Rell o n 2021-02-18 Outpatient SYSTEM, MDA MDA [id number] MD 15:45:43 PROVIDER Rell o n 2019-12-12 Outpatient SYSTEM, MDA MDA [id number] MD 14:36:16 PROVIDER Rell o n 2022-10-01 2022-10-16 Inpatient ER MENDOZA, MDA Breast [id number] MD 20:15:00 14:03:00 BLADIMIR Rell o n 2022-10-16 2022-10-16 Inpatient EL REJI, MDA MDA [id number] MD 05:20:49 05:46:26 BLADIMIR Rell o n 2022-10-15 2022-10-15 Inpatient ELIE, MDA MDA [id number] MD 17:14:56 17:42:16 KELLY Fieldsers o n 2022-10-10 2022-10-10 Inpatient SARAI COLÓN MDA MDA [id number] 19:48:04 20:04:00 Rell o n 2022-10-07 2022-10-07 Inpatient SARAI COLÓN MDA MDA [id number] MD 22:25:07 22:49:24 Rell o n 2022-10-06 2022-10-06 Inpatient SARAI COLÓN MDA MDA [id number] 09:40:47 10:28:15 Rell o n 2022-09-11 2022-09-11 Outpatient KIMBERLEY, MDA MDA [id number] 10:00:00 23:59:00 MELECIO Zacarias o iwllem 2022-09-11 2022-09-11 Outpatient KIMBERLEY, MDA MDA [id number] 10:41:03 10:41:03 MELECIO Zacarias o willem 2022-08-07 2022-08-07 Outpatient KIMBERLEY, MDA MDA [id number] 11:40:47 23:59:00 MELECIO Zacarias o n 2022-08-07 2022-08-07 Outpatient SARANYA CHU, MDA MDA [id number] MD 12:03:51 12:03:51 MELECIO bangura 2022-07-03 2022-07-03 Outpatient SARANYA DUBONER, MDA MDA [id number] MD 11:03:45 23:59:00 MELECIO bangura 2022-07-03 2022-07-03 Outpatient SARANYA DUBONER, MDA MDA [id number] MD 12:54:52 14:42:10 MELECIO bangura 2022-06-05 2022-06-05 Outpatient SARANYA CHU, MDA MDA [id number] MD 12:20:02 12:59:34 MELECIO bangura 2022-04-27 2022-04-27 Outpatient SARANYA CHU, MDA MDA [id number] MD 07:00:00 23:59:00 MELECIO bangura 2022-04-27 2022-04-27 Outpatient SARANYA CHU, MDA MDA [id number] MD 08:19:17 10:51:32 MELECIO bangura 2022-04-03 2022-04-03 Outpatient KIMBERLEY, MDA MDA [id number] MD 13:01:59 14:41:47 MELECIO bangura 2022-03-06 2022-03-06 Outpatient KIMBERLEY, MDA MDA [id number] MD 10:06:45 23:59:00 MELECIO bangura 2022-03-06 2022-03-06 Outpatient KIMBERLEY, MDA MDA [id number] MD 11:19:36 12:19:57 MELECIO bangura 2022-03-06 2022-03-06 Outpatient JAGDISHER, MDA MDA [id number] MD 10:32:28 10:32:28 MELECIO bangura 2022-02-06 2022-02-06 Outpatient EL BOOSER, MDA MDA [id number] MD 09:16:38 09:48:45 MELECIO bangura 2022-01-09 2022-01-09 Outpatient JAGDISHER, MDA MDA [id number] MD 10:39:18 23:59:00 MELECIO bangura 2022-01-09 2022-01-09 Outpatient EL BOOSER, MDA MDA [id number] MD 10:58:03 15:05:13 MELECIO bangura 2022-01-09 2022-01-09 Outpatient EL KIMBERLEY, MDA MDA [id number] MD 12:38:29 12:38:29 MELECIO bangura 2021-12-12 2021-12-12 Outpatient SARANYA CHU, MDA MDA [id number] MD 12:05:59 23:59:00 MELECIO bangura 2021-12-12 2021-12-12 Outpatient EL KIMBERLEY, MDA MDA [id number] MD 13:16:25 14:21:53 MELECIO bangura 2021-10-16 2021-10-16 Outpatient EL SANTHOSH, MDA MDA [id number] 09:11:19 12:29:42 TU bangura 2021-10-16 2021-10-16 Outpatient EL SANTHOSH, MDA MDA [id number] MD 08:51:27 08:51:27 TU bangura 2021-09-25 2021-09-25 Outpatient KIMBERLEY, MDA MDA [id number] MD 12:23:01 13:20:30 MELECIO bangura 2021-08-28 2021-08-28 Outpatient KIMBERLEY, MDA MDA [id number] MD 07:11:35 23:59:00 MELECIO bangura 2021-08-28 2021-08-28 Outpatient KIMBERLEY, MDA MDA [id number] MD 07:29:53 09:42:47 MELECIO bangura 2021-07-31 2021-07-31 Outpatient KIMBERLEY, MDA MDA [id number] 09:34:41 10:29:22 MELECIO bangura 2021-07-08 2021-07-08 Outpatient EL DIAZ, MDA MDA [id number] 12:19:24 12:19:24 RAÚL bangura 2021-07-03 2021-07-03 Outpatient EL KIMBERLEY, MDA MDA [id number] MD 12:55:13 23:59:00 MELECIO bangura 2021-07-03 2021-07-03 Outpatient KIMBERLEY, MDA MDA [id number] 13:18:36 16:00:47 MELECIO bangura 2021-05-21 2021-05-21 Outpatient EL MDA MDA [id number] MD 11:40:05 23:59:00 Rell bangura 2021-05-21 2021-05-21 Outpatient EL KIMBERLEY, MDA MDA [id number] MD 12:40:43 13:56:41 MELECIO bangura 2021-04-21 2021-04-21 Outpatient EL MDA MDA [id number] MD 09:41:01 13:00:49 Rell bangura 2021-03-24 2021-03-24 Outpatient EL JEANNE, MDA MDA [id number] MD 10:38:12 15:17:44 ROSENDA bangura 2021-03-24 2021-03-24 Outpatient EL SANTHOSH, MDA MDA [id number] 08:08:04 14:43:43 TU bangura 2021-03-24 2021-03-24 Outpatient EL MDA MDA [id number] MD 11:54:48 11:54:48 Rell bangura 2021-03-21 2021-03-21 Outpatient EL KIMBERLEY, MDA MDA [id number] MD 11:07:53 23:59:00 MELECIO bangura 2021-03-21 2021-03-21 Outpatient EL KIMBERLEY, MDA MDA [id number] MD 11:25:21 13:04:57 MELECIO bangura 2021-01-08 2021-01-13 Outpatient EL EMILY, MDA MDA [id number] MD 12:32:37 06:40:36 RAÚL bangura 2021-01-08 2021-01-08 Outpatient EL DIAZ, MDA MDA [id number] MD 10:55:15 23:59:00 RAÚL bangura 2020-12-13 2020-12-13 Outpatient EL JAGDISHMARIA TERESA, MDA MDA [id number] MD 10:42:27 23:59:00 MELECIO bangura 2020-12-13 2020-12-13 Outpatient EL KIMBERLEY, MDA MDA [id number] MD 11:17:38 11:17:38 MELECIO bangura 2020-10-18 2020-10-18 Outpatient EL KIMBERLEY, MDA MDA [id number] 08:08:25 08:08:25 MELECIO bangura 2020-02-21 2020-02-21 Outpatient SARANYA CHU MDA MDA [id number] 00:00:00 00:00:00 MELECIO bangura 2020-01-24 2020-01-24 Outpatient SARANYA JO MDA MDA [id number] 00:00:00 00:00:00 MAYUR bangura 2019-12-27 2019-12-27 Outpatient SARANYA CHU MDA MDA [id number] 06:51:15 09:50:57 MELECIO bangura 2019-12-27 2019-12-27 Outpatient SARANYA CHU MDA MDA [id number] 06:21:08 06:21:08 MELECIO bangura 2019-12-11 2019-12-11 Outpatient SARANYA CHU MDA MDA [id number] 09:32:44 11:03:05 MELECIO bangura Results This patient has no known results.
[2023-02-21] MEDS ORDERED: ONDANSETRON 4 MG (ODT) TAB ONE (14:47)
--- NOTE | 2023-02-21 15:34 | RAD REPORT ---
EXAM DESCRIPTION: CT - [id number] - 02/21/2023 3:19 pm CLINICAL HISTORY: Trauma, head and neck injury. TRAUMA COMPARISON: Chest Single View dated 03/09/2020 TECHNIQUE: Axial 5 mm thick images of the head were obtained. Axial 2 mm thick images of the cervical spine were obtained with sagittal and coronal reconstruction images generated and reviewed. All CT scans are performed using dose optimization technique as appropriate and may include automated exposure control or mA/KV adjustment according to patient size. FINDINGS: CT HEAD WITHOUT CONTRAST: No acute hemorrhage, hydrocephalus or extra-axial collection is identified.No areas of brain edema or midline shift. Age advanced cerebral atrophy. Moderate chronic small vessel ischemic changes. The paranasal sinuses and mastoids are clear.The calvarium is intact. CT CERVICAL SPINE WITHOUT CONTRAST: No fracture or subluxation.No prevertebral soft tissues swelling is identified. Osseous metastatic di sease is present with lesions in nearly every cervical level. Lesions are also present in the visuali zed ribs and upper thoracic levels. IMPRESSION: No acute intracranial or cervical spine findings. Numerous osseous metastatic lesions.
--- NOTE | 2023-02-21 16:22 | EDPHYS ---
Physician Documentation [facility] Name: Hortencia Martinez Age: 72 yrs Sex: Female : 1950 Arrival Date: 02/21/2023 Time: 14:33 Bed 14 Private MD: ED Physician Georgina Whitley HPI: 02/21 18:15 This 72 yrs old Female presents to ER via EMS with complaints of Fall Injury, kb Laceration To Head. 18:15 Details of fall: The patient fell from an upright position. Onset: The symptoms/episode kb began/occurred just prior to arrival. Associated injuries: The patient sustained injury to the head, laceration. Severity of symptoms: At their worst the symptoms were mild, moderate, in the emergency department the symptoms are unchanged. The patient has not experienced similar symptoms in the past. The patient has not recently seen a physician. states pt was asleep in the hospital bed, he walked out for about 10 minutes to say goodbye to his son and pt was on the ground across the room from the bed when he got back inside. Pt was awake. Pt is on hospice for dementia and cancer. . Historical: - Allergies: 15:25 Codeine (Vomiting); me1 - PMHx: 15:25 BREAST CA; Diabetes - NIDDM; lymphedema; me1 - Immunization history: Last tetanus immunization: unknown. - Social history:: Smoking status: Patient denies any tobacco usage or history of. ROS: 18:11 Constitutional: Negative for fever, chills, and weight loss. kb 18:11 Skin: Positive for laceration(s), of the left parietal area. 18:11 All other systems are negative. Exam: 18:11 Constitutional: This is a well developed, well nourished patient who is awake, alert, kb and in no acute distress. Eyes: Pupils equal round and reactive to light, extra-ocular motions intact. Lids and lashes normal. Conjunctiva and sclera are non-icteric and not injected. Cornea within normal limits. Periorbital areas with no swelling, redness, or edema. ENT: Moist Mucous membranes Cardiovascular: Regular rate and rhythm with a normal S1 and S2. No gallops, murmurs, or rubs. No pulse deficits. Respiratory: Respirations even and unlabored. No increased work of breathing. Talking in full sentences 18:11 Skin: injury, laceration(s), the wound is approximately 3 cm(s), of the left parietal area, that can be described as clean, no foreign body, linear, without bleeding. 18:11 Neuro: Exam negative for acute changes. Vital Signs: 14:07 BP 156 / 149; Pulse 63; Resp 17; Temp 98.2(O); Pulse Ox 99% on R/A; me1 16:31 BP 152 / 81; Pulse 58; Resp 17; Pulse Ox 99% on R/A; me1 Maren Coma Score: 14:07 Eye Response: spontaneous(4). Motor Response: obeys commands(6). Verbal Response: me1 confused(4). Total: 14. Trauma Score (Adult): 14:07 Eye Response: spontaneous(1); Verbal Response: confused(1); Motor Response: localizes me1 pain(1); Systolic BP: > 89 mm Hg(4); Respiratory Rate: 10 to 29 per min(4); Pyrites Score: 13; Trauma Score: 11 Laceration: 18:11 Wound Repair of 3cm ( 1.2in ) subcutaneous laceration to left parietal area. Linear kb shaped.. Distal neuro/vascular/tendon intact. Wound prep: Extensive cleansing with hibiclenz by nurse, Wound irrigation with saline by nurse. Skin closed with 3 1-0 Cara using staple gun. Patient tolerated well. MDM: 14:49 Patient medically screened. kb 18:14 Differential diagnosis: abrasion, closed head injury, contusion, fracture, laceration. kb Data reviewed: vital signs, nurses notes. Test considered but Not performed: Labs: cbc, basic considered but pt reports pt is under the care of hospice and they handle "all of that." Only came in for head injury. Historians other than the Patient: EMS: [facility]. Spouse/Significant Other: . Counseling: I had a detailed discussion with the patient and/or guardian regarding the historical points, exam findings, and any diagnostic results supporting the discharge/admit diagnosis, radiology results, the need for outpatient follow up, a family practitioner, to return to the emergency department if symptoms worsen or persist or if there are any questions or concerns that arise at home. 02/21 14:50 Order name: CT Head C Spine; Complete Time: 15:37 kb 02/21 14:50 Order name: Wound Care; Complete Time: 15:25 kb Administered Medications: No medications were administered Disposition Summary: 02/21/23 16:21 Discharge Ordered Location: Home kb Condition: Stable kb Diagnosis - Fall on same level from slipping, tripping and stumbling without subsequent kb striking against object - Unspecified injury of head, initial encounter kb - Laceration without foreign body of scalp kb Followup: kb - With: Emergency Department - When: As needed - Reason: Worsening of condition Followup: kb - With: Private Physician - When: 2 - 3 days - Reason: Recheck today's complaints, Continuance of care, Re-evaluation by your physician Discharge Instructions: - Discharge Summary Sheet kb - Laceration Care, Adult, [id number] kb - Head Injury, Adult, [id number] kb Forms: - Medication Reconciliation Form kb - Thank You Letter kb - Antibiotic Education kb - Prescription Opioid Use kb - Patient Portal Instructions kb - Leadership Thank You Letter kb Signatures: Dispatcher [employer] Kristina Prince, UNIVERSITY MANAGER-C UNIVERSITY MANAGER-Leslie Arcos, RN RN me1
--- NOTE | 2023-02-21 16:22 | ER ---
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 14:15 Care prior to arrival: None. Mechanism of Injury: Fall unwitnessed fall from hospital me1 bed to floor. Trauma event details: Injury occurred: at home. Injury occurred: February 21, 2023. 14:15 Acuity: JESSICA 2 md1 14:15 Method Of Arrival: EMS: [facility] 16:34 Coronavirus screen: Vaccine status: Patient reports receiving the 2nd dose of the covid me1 vaccine. Ebola Screen: No symptoms or risks identified at this time. Initial Sepsis Screen: Does the patient meet any 2 criteria? No. Patient's initial sepsis screen is negative. Does the patient have a suspected source of infection? No. Patient's initial sepsis screen is negative. Risk Assessment: Do you want to hurt yourself or someone else? Patient reports no desire to harm self or others. Onset of symptoms was February 21, 2023. Historical: - Allergies: 15:25 Codeine (Vomiting); me1 - PMHx: 15:25 BREAST CA; Diabetes - NIDDM; lymphedema; me1 - Immunization history: Last tetanus immunization: unknown. - Social history:: Smoking status: Patient denies any tobacco usage or history of. Screenin:07 Abuse screen: Denies threats or abuse. Tuberculosis screening: No symptoms or risk md1 factors identified. 16:35 [facility] ED Fall Risk Assessment (Adult) History of falling in the last 3 months, me1 including since admission Yes- single mechanical fall (1 pt) Confusion or Disorientation Yes (5 pts) Intoxicated or Sedated No (0 pts) Impaired Gait Yes (1 pt) Mobility Assist Device Used Yes (1 pt) Altered Elimination Yes (1 pt) Score/Fall Risk Level 3 or more points = High Risk Oriented to surroundings, Maintained a safe environment, Educated pt \T\ family on fall prevention, incl call for assistance when getting out of bed, Assessed \T\ reinforced patient's understanding of fall precautions, Hourly rounding (assess needs \T\ fall precautionary measures) done, Utilized family, sitter, or virtual social services specialist as indicated. Nutritional screening: No deficits noted. Primary Survey: 14:40 NO uncontrolled hemorrhage observed. Breathing/Chest: Spontaneous respiratory effort, me1 equal unlabored respirations, breath sounds clear bilaterally, regular pattern, symmetrical chest rise and fall. Respiratory effort: spontaneous, unlabored. Circulation: No external hemorrhage present. Regular and strong central pulse, skin warm/dry/normal color. Skin color: pink, Skin temperature: warm, dry. Disability Pupils are equal, round, reactive to light and accommodation. Client is alert. Exposure/Environment: There is no evidence of uncontrolled external bleeding. Obvious injury(ies) are noted at this time: laceration to posterior scalp. 16:34 Reassessment Breathing: Spontaneous respiratory effort, equal unlabored respirations, me1 breath sounds clear bilaterally, regular pattern with symmetrical chest rise and fall. Respiratory effort Spontaneous Unlabored Breath sounds Clear. 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 patient is on hospice. Laceration with controlled bleed to posterior scalp. Pain: Denies pain. Neuro: Level of Consciousness is awake, alert, confused, Oriented to person, at baseline. End stage dementia.. Denies. EENT:. Cardiovascular: Capillary refill < 3 seconds Patient's skin is warm and dry. Respiratory: Airway is patent Respiratory effort is even, unlabored, Respiratory pattern is regular, symmetrical. Derm: Wound noted left parietal area Other: hair matted with blood to posterior scalp. 16:31 Reassessment: Patient appears in no apparent distress at this time. No changes from me1 previously documented assessment. Patient and/or family updated on plan of care and expected duration. Pain level reassessed. Patient is alert, oriented x 3, equal unlabored respirations, skin warm/dry/pink. Vital Signs: 14:07 BP 156 / 149; Pulse 63; Resp 17; Temp 98.2(O); Pulse Ox 99% on R/A; me1 16:31 BP 152 / 81; Pulse 58; Resp 17; Pulse Ox 99% on R/A; me1 [place] Coma Score: 14:07 Eye Response: spontaneous(4). Motor Response: obeys commands(6). Verbal Response: me1 confused(4). Total: 14. Trauma Score (Adult): 14:07 Eye Response: spontaneous(1); Verbal Response: confused(1); Motor Response: localizes me1 pain(1); Systolic BP: > 89 mm Hg(4); Respiratory Rate: 10 to 29 per min(4); Maren Score: 13; Trauma Score: 11 ED Course: 14:07 Patient has correct armband on for positive identification. Bed in low position. Call me1 light in reach. Side rails up X2. Adult w/ patient. Patient maintains SpO2 saturation greater than 95% on room air. Client placed on continuous cardiac and pulse oximetry monitoring. NIBP monitoring applied. 14:07 Patient maintains SpO2 saturation greater than 95% on room air. me1 14:15 Arm band placed on Patient placed in an exam room. me1 14:41 Patient arrived in ED. eb 14:49 Kristina Medrano FNP-C is PHCP. kb 14:49 Georgina Whitley MD is Attending Physician. kb 14:53 Leslie Forbes, GIOVANA is Primary Nurse. me1 15:17 Triage completed. me1 15:21 CT Head C Spine In Process Unspecified. EDMS 16:33 Assist provider with laceration repair on left parietal area using yordy. Patient did me1 not have IV access during this emergency room visit. 16:35 Provided Education on: POC. Wound care. verbalized understanding.. me1 16:36 Thermoregulation: warm blanket given to patient. me1 Administered Medications: No medications were administered Medication: 16:36 VIS not applicable for this client. me1 Outcome: 16:21 Discharge ordered by . kb 16:36 Discharged to home via wheelchair, with significant other. me1 16:36 Condition: stable 16:36 Discharge instructions given to patient, significant other, Instructed on discharge instructions, follow up and referral plans. wound care, Demonstrated understanding of instructions, follow-up care, wound care. 16:36 Patient's length of stay was not longer than 2 hours. [facility] 16:57 Patient left the ED. 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 [facility] 16:33 15:15 Care prior to arrival: None. [place] [id number] 16:33 15:15 Mechanism of Injury: Fall unwitnessed fall from hospital bed to floor. [place] [id number] 16:33 15:15 Trauma event details: Injury occurred: at home. Injury occurred: February 21, md2022 [facility] 16 15:15 Acuity: JESSICA 2 [place] [id number] 16:33 15:15 Method Of Arrival: EMS: [facility] [place] [id number]
[2023-02-21 17:21] VITALS: BP 152/81; O2SAT 99
== END 2023-02-21 16:57 | disposition home or self-care (01) ==
LOC: ER 14:33
PROC: 0HQ0XZZ Repair Scalp Skin, External Approach (ICD-10-PCS; principal; 2023-02-21)
DX: S01.01XA Laceration without foreign body of scalp, initial encounter (principal); W01.0XXA Fall on same level from slipping, tripping and stumbling without subsequent striking against object, initial encounter; Z88.5 Allergy status to narcotic agent; E11.9 Type 2 diabetes mellitus without complications
CPT/HCPCS: 70450; 72125; 99285; 12002; Q0162